=== PATIENT | female | born 1990 | race Caucasian/White ===

== ENCOUNTER 2020-02-18 13:09 | Emergency (ER) | payer MEDICARE, SELFPAY ==
[2020-02-18 13:17] VITALS: BP 116/77; BP 122/82; PULSE 88; RESP 17; TEMP 36.6; O2SAT 98; BMI 18.8
--- NOTE | 2020-02-18 15:37 | CT_ITS ---
EXAMINATION: CT ABDOMEN AND PELVIS WITH CONTRAST CLINICAL INFORMATION: Right-sided flank pain and right lower quadrant abdominal pain COMPARISON: Pelvic ultrasound 08/13/[address] abdomen pelvis 05/10/2019 TECHNIQUE: Multidetector volumetric images were obtained from the superior aspect of the liver through the pubic symphysis following administration 85 mL of Omnipaque 350 intravenous contrast. Sagittal and coronal reformatted images were obtained on the technologist's workstation. Oral contrast: No This CT examination was performed using dose optimization techniques as appropriate, variously including the following: *Automated exposure control *Adjustment of mA and/or kV according to patient size (this includes techniques or standardized protocols for targeted exams where dose is matched to indication/reason for exam; i.e. extremities or head) *Use of iterative reconstruction technique DLP: 251 mGy-cm FINDINGS: LUNG BASES: The visualized lung bases are unremarkable. LIVER, GALLBLADDER, AND BILIARY TREE: The liver is normal in size, shape, and attenuation. No focal hepatic lesion or biliary ductal dilatation is present. The gallbladder is contracted but otherwise unremarkable with no evidence of radiopaque gallstones, gallbladder wall thickening, or obvious pericholecystic inflammatory changes. PANCREAS: Unremarkable. SPLEEN: Unremarkable. ADRENAL GLANDS: Unremarkable. KIDNEYS AND URETERS: The kidneys are normal in size, shape, and attenuation. No hydronephrosis, hydroureter, or calculi seen. No perinephric stranding. BLADDER: Unremarkable. GASTROINTESTINAL TRACT: The small and large bowel are unremarkable. The appendix is is not seen but there is no evidence of appendicitis. ABDOMINAL WALL: No significant hernia is appreciated. LYMPH NODES: Normal. VASCULAR: There is a large refluxing left ovarian vein present with marked varices in the left hemipelvis and some smaller right-sided pelvic varices.. PELVIC VISCERA: An anteverted uterus is present. An abnormal adnexal mass is not seen. A tiny amount of fluid is present in the cul-de-sac OSSEOUS STRUCTURES: Unremarkable. CT/CT abdomen pelvis w con IMPRESSION: A cause for the right flank pain and right lower quadrant pain is not seen with certainty. Incidental note made of a large refluxing left ovarian vein with associated pelvic varices. This can be a cause of chronic pelvic pain especially if worsened with prolonged standing and relieved with the supine position. This is easily treatable by an interventional radiologist should the patient have this symptom complex.
[2020-02-18 15:57] VITALS: BP 107/62; PULSE 65; RESP 17; TEMP 37.1; O2SAT 99
[2020-02-18] MEDS: 0.9 % Sodium Chloride 1,000 ML 999 ML IV (16:12)
--- NOTE | 2020-02-18 16:14 | ED_ITS ---
HPI - Abdominal Pain General Chief Complaint: Abdominal Pain Stated Complaint: back pain Time Seen by Provider: 02/18/20 15:14 Source: patient Mode of arrival: ambulatory Limitations: no limitations History of Present Illness HPI narrative: 23-year-old female with past medical history that is significant for anxiety disorder, depression, according to her history of gallstones who presents today with complaint of right lower quadrant abdominal pain going on for the past several days now pain radiates to the right flank area and has been progressively getting worse with associated nausea and stabbing like pain. MD elicited complaint: abdominal pain Quality: stabbing Radiation: RLQ Exacerbating factors: nothing Related Data Previous Rx's Medication Instructions Recorded dicyclomine 20 mg PO BID #14 tab 02/18/20 ondansetron HCl [Zofran] 4 mg PO Q8H PRN #10 tab 02/18/20 Allergies Allergy/AdvReac Type Severity Reaction Status Date / Time ceftriaxone [CEFTRIAXONE] Allergy Intermediate HIVES Unverified 11/25/19 19:18 amoxicillin [AMOXICILLIN] Allergy Mild RASH Unverified 11/25/19 19:18 SEASONAL ALLERGIES Allergy Unknown UNKNOWN Uncoded 11/25/19 19:18 Review of Systems Review of Systems Constitutional: No Weight loss, No Fever, No Chills, No Night Sweats, No Fatigue, No Malaise ENT/Mouth: No Hearing loss, No Ear Pain, No Nasal Congestion, No Sinus Pain, No Hoarseness, No sore throat, No Rhinorrhea, No Swallowing Difficulty Eyes: No Eye Pain, No Swelling, No Redness, No Foreign Body, No Discharge, No Vision Changes Cardiovascular: No Chest Pain, No SOB, No Dyspnea on Exertion, No Orthopnea, No Edema, No Palpitations Respiratory: No Cough, No Sputum, No Wheezing, No Smoke Exposure, No Dyspnea Gastrointestinal: As noted in HPI, No Hematochezia, No Melena Genitourinary: no irregular bleeding, No Dysuria, No Urinary Frequency, No Hematuria, No Urinary Incontinence, No Urgency, No Flank Pain, No Urinary Flow Changes, No Hesitancy Musculoskeletal: No joint pain, No Myalgias, No Joint Swelling Skin: No Skin Lesions, No rash Neuro: No Weakness, No Numbness, No Paresthesias, No Loss of Consciousness, No Dizziness, No Headache Psych: No Anxiety/Panic, No Depression, No SI/HI/AH/VH, No Social Issues Heme/Lymph: No Bruising, No Bleeding,No Lymphadenopathy Endocrine: No Polyuria, No Polydipsia, No Temperature Intolerance Yes all other systems are reviewed and are negative Physical Exam Vital Signs: Vital Signs: Last Vital Signs Temp 97.8 F 02/18/20 19:28 Pulse 64 02/18/20 19:28 Resp 16 02/18/20 19:28 BP 106/64 02/18/20 19:28 Pulse Ox 95 02/18/20 19:28 Body Mass Index 18.8 Reviewed Const: General: cooperative and healthy appearing; No acute distress or intoxicated appearing Nutritional Appearance: average body habitus Orientation/consciousness: patient oriented x3 HENMT: Head: Yes normal to inspection Ears: hearing grossly normal bilaterally Eyes: General: appearance normal, both eyes and all related structures Visual Carrera: normal visual carrera by confrontation Neck: Neck: Yes normal visual inspection and No tender Thyroid: Thyroid normal Chest: Chest palpation & inspection: normal inspection of the chest Resp: Effort & Inspection: normal respiratory effort Auscultation: clear to auscultation bilaterally Cardio: Jugular venous distension: no JVD Rate: regular rate Heart sounds: S1 normal heart sound present and S2 normal heart sound present GI: Inspection: Yes normal to inspection Palpation (GI): Soft to palpation and Tenderness to palpation present (GI) in the RLQ Percussion: Yes normal to percussion Auscultation: normal bowel sounds : General: Yes no CVA tenderness Back/Spine/Pelvis: Back: no CVA tenderness Skin: General skin exam: no rashes or lesions noted Neuro: General: patient oriented x3 Extrem: General: Yes normal to inspection Course Course Course Narrative: Interview 21-year-old female with above history including history of gallstone otherwise denies any significant surgical history not currently taking medications states that she has had this right lower quadrant pain going on for 3 days upon further investigation she started to become more forthcoming states she is very upset and agitated that she has had this pain going on has been to multiple ERs including [facility] and [facility] where she was escorted out of the building because the wait times were long and testing revealed no specific diagnosis. During conversation seem to be very easily agitated by basic questioning. Abdominal exam is some vague right lower quadrant tenderness otherwise no suprapubic tenderness palpation. Will check labs including UA. Reevaluation(s) Reevaluation #1: Labs overall stable no leukocytosis renal function intact. No transaminitis. UA negative, negative. Urine tox positive for marijuana otherwise negative. She did have a COVID test 3 days ago which was negative she declined another [address] scan risk benefits of having radiation reviewed with her states she has been to 2 years and would like to CT get a CT scan to make sure there is nothing going on. Advised her that given the stable labs and examination suspicions are relatively low for appendix/obstructive pathology/infectious pathology. CT of the abdomen pelvis ordered with IV contrast. Reevaluation #2: Call from [facility] who states Dr. Walker re ad CT given technical issues having hard time transferring read over impression of the CT reads No acute abnormalities on the CT of the abdomen and pelvis. Read number a [id number] MDM - Abdominal Pain Differential Diagnosis Differential diagnosis: Likely abdominal pain, acute appendicitis, calculus of kidney, diverticulitis, gastritis and renal colic; Unlikely aortic dissection, bowel perforation, constipation, endometriosis, gastroenteritis, mesenteric ischemia, ovarian cyst, pancreatitis, peptic ulcer disease and small bowel obstruction Medical Records Attestation: I reviewed the patient's medical records. Medical records narrative: Records reviewed from [facility] Lab Data Attestation: I reviewed the patient's lab results. Result diagrams: 02/18/20 16:11 02/18/20 16:11 Labs: Lab Results 02/18/20 02/18/20 02/18/20 Range/Units 16:11 16:11 16:11 WBC 7.6 (4.8-10.8) X10*3/uL RBC 4.52 (4.20-5.50) X10*6/uL Hgb 13.0 (12.0-16.0) g/dl Hct 40.8 (37-47) % MCV 90.3 (80-98) fL MCH 28.8 (27.0-33.0) pg MCHC 31.9 (31.0-35.0) g/dl RDW 12.4 (11.0-16.0) % Plt Count 162 (160-400) X10*3/uL MPV 11.4 (9.4-12.3) fL Immature Gran % (Auto) 0.4 (0.0-0.4) % Neut % (Auto) 70.2 (45-73) % Lymph % (Auto) 20.6 (20-40) % [place] % (Auto) 5.2 (2-11) % Eos % (Auto) 3.3 (0-4) % Baso % (Auto) 0.3 (0-2) % Lymph # (Auto) 1.6 (1.2-4.9) X10*3/uL [place] # (Auto) 0.4 (0.1-1.2) X10*3/uL Eos # (Auto) 0.3 (0.0-0.4) X10*3/uL Baso # (Auto) 0.0 (0.0-0.2) X10*3/uL Abs Immat Gran (auto) 0.03 (0.00-0.03) X10*3/uL Absolute Neuts (auto) 5.4 (2.0-8.3) X10*3/uL Absolute Nucleated RBC 0.000 (0.0-0.012) X10*3/uL Nucleated RBC % (auto) 0.0 (0.0-0.2) /100WBC PT 12.8 (10.8-13.0) SEC INR 1.1 (0.9-1.1) APTT 29.6 (24.1-38.0) SEC Sodium 140 (135-145) mmol/L Potassium 4.5 (3.3-5.1) mmol/l Chloride 106 (96-108) mmol/L Carbon Dioxide 26 (22-29) mmol/L Anion Gap 13 (12-20) BUN 10 (9-16) mg/dL Creatinine 0.68 (0.5-1.4) mg/dL Estim Creat Clear Calc 87.4 Estimated GFR > 60 Random Glucose 75 (60-115) mg/dL Calcium 8.9 (8.4-10.2) mg/dL Total Bilirubin 1.6 H (0.0-1.0) mg/dL AST 17 (5-31) U/L ALT 13 (0-31) U/L Alkaline Phosphatase 59 (39-117) U/L Total Protein 6.7 (6.5-8.0) g/dL Albumin 4.4 (3.5-5.0) g/dL Urine Color Urine Appearance Urine pH (5.0-8.0) Ur Specific [place] (1.005-1.025) Urine Protein (NEG-TRACE) MG/DL Urine Glucose (UA) (NEG) MG/DL Urine Ketones (NEG) MG/DL Urine Blood (NEG) Urine Nitrite (NEG) Ur Leukocyte Esterase (NEG) Urine RBC (0) /HPF Urine WBC (0-4) /HPF Ur Squamous Epith Cells /LPF Amorphous Sediment /LPF Urine Bacteria /LPF Urine Test (NEGATIVE) Urine Opiates Screen (Not Detect) Ur Barbiturates Screen (Not Detect) Ur Phencyclidine Scrn (Not Detect) Ur Amphetamines Screen (Not Detect) U Benzodiazepines Scrn (Not Detect) Urine Cocaine Screen (Not Detect) U Marijuana (THC) Screen (Not Detect) 02/18/20 02/18/20 Range/Units 16:11 16:11 WBC (4.8-10.8) X10*3/uL RBC (4.20-5.50) X10*6/uL Hgb (12.0-16.0) g/dl Hct (37-47) % MCV (80-98) fL MCH (27.0-33.0) pg MCHC (31.0-35.0) g/dl RDW (11.0-16.0) % Plt Count (160-400) X10*3/uL MPV (9.4-12.3) fL Immature Gran % (Auto) (0.0-0.4) % Neut % (Auto) (45-73) % Lymph % (Auto) (20-40) % [place] % (Auto) (2-11) % Eos % (Auto) (0-4) % Baso % (Auto) (0-2) % Lymph # (Auto) (1.2-4.9) X10*3/uL [place] # (Auto) (0.1-1.2) X10*3/uL Eos # (Auto) (0.0-0.4) X10*3/uL Baso # (Auto) (0.0-0.2) X10*3/uL Abs Immat Gran (auto) (0.00-0.03) X10*3/uL Absolute Neuts (auto) (2.0-8.3) X10*3/uL Absolute Nucleated RBC (0.0-0.012) X10*3/uL Nucleated RBC % (auto) (0.0-0.2) /100WBC PT (10.8-13.0) SEC INR (0.9-1.1) APTT (24.1-38.0) SEC Sodium (135-145) mmol/L Potassium (3.3-5.1) mmol/l Chloride (96-108) mmol/L Carbon Dioxide (22-29) mmol/L Anion Gap (12-20) BUN (9-16) mg/dL Creatinine (0.5-1.4) mg/dL Estim Creat Clear Calc Estimated GFR Random Glucose (60-115) mg/dL Calcium (8.4-10.2) mg/dL Total Bilirubin (0.0-1.0) mg/dL AST (5-31) U/L ALT (0-31) U/L Alkaline Phosphatase (39-117) U/L Total Protein (6.5-8.0) g/dL Albumin (3.5-5.0) g/dL Urine Color YELLOW Urine Appearance HAZY Urine pH 7.0 (5.0-8.0) Ur Specific [place] 1.025 (1.005-1.025) Urine Protein NEG (NEG-TRACE) MG/DL Urine Glucose (UA) NEG (NEG) MG/DL Urine Ketones 15 (NEG) MG/DL Urine Blood NEG (NEG) Urine Nitrite NEG (NEG) Ur Leukocyte Esterase NEG (NEG) Urine RBC 0 (0) /HPF Urine WBC 0 (0-4) /HPF Ur Squamous Epith Cells 1+ /LPF Amorphous Sediment 1+ /LPF Urine Bacteria NONE /LPF Urine Test NEGATIVE (NEGATIVE) Urine Opiates Screen Not Detected (Not Detect) Ur Barbiturates Screen Not Detected (Not Detect) Ur Phencyclidine Scrn Not Detected (Not Detect) Ur Amphetamines Screen Not Detected (Not Detect) U Benzodiazepines Scrn Not Detected (Not Detect) Urine Cocaine Screen Not Detected (Not Detect) U Marijuana (THC) Screen POSITIVE H (Not Detect) Discharge Plan Discharge Clinical Impression: Abdominal pain Patient Disposition: Home, Self-Care Instructions: Abdominal Pain (ED) Additional Instructions: Blood work was all within normal limits The CT scan of the abdomen pelvis with IV contrast does not show any acute abnormality At this point yet been evaluated in multiple ERs with multiple diagnostic testing that have been overall stable I would like for you to follow-up with her primary care doctor next 1 week and 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 Return if any concerns or worsening symptoms Thank you Prescriptions: New ondansetron HCl [Zofran] 4 mg tablet 4 mg PO Q8H PRN (Reason: nausea and vomiting) Qty: 10 RF: 0 dicyclomine 20 mg tablet 20 mg PO BID Qty: 14 RF: 0 Referrals: Marisela Lopez MD [Physician] - 1 week Physician,Unknown [Primary Care Provider] - 1 week (Primary care doctor) [facility] Past Medical History Medical History (Updated 02/18/20 @ 20:17 by Moshe Jung NP) Anxiety Depression PTSD (post-traumatic stress disorder) Social History Social History Alcohol intake: never Smoked in Last 30 Days: No Use of substances other than those prescribed or required for medical reasons: No Advance Directives: No Advance Directives Information Provided: Yes
[2020-02-18 16:24] LABS: Basophils Percent Auto 0.3 % (0-2); Eosinophils Absolute Auto 0.3 X10*3/uL (0.0-0.4); Eosinophils Percent Auto 3.3 % (0-4); Hematocrit 40.8 % (37-47); Imm Gran Abs Auto 0.03 X10*3/uL (0.00-0.03); Imm Gran Pct Auto 0.4 % (0.0-0.4); Lymphocytes Absolute Auto 1.6 X10*3/uL (1.2-4.9); Lymphocytes Percent Auto 20.6 % (20-40); MANUAL DIFF FLAG NO; Mean Corpuscular HGB Conc 31.9 g/dl (31.0-35.0); Mean Corpuscular Hemoglobin 28.8 pg (27.0-33.0); Mean Corpuscular Volume 90.3 fL (80-98); Mean Platelet Volume 11.4 fL (9.4-12.3); Monocytes Absolute Auto 0.4 X10*3/uL (0.1-1.2); Monocytes Percent Auto 5.2 % (2-11); Neutrophils Absolute Auto 5.4 X10*3/uL (2.0-8.3); Neutrophils Percent Auto 70.2 % (45-73); Platelet Count 162 X10*3/uL (160-400); Red Blood Count 4.52 X10*6/uL (4.20-5.50); Red Cell Distribution Width 12.4 % (11.0-16.0); White Blood Count 7.6 X10*3/uL (4.8-10.8)
[2020-02-18 16:27] LABS: Glucose Urine UA NEG (NEG); Leukocyte Esterase Urine NEG (NEG); Nitrite Urine NEG (NEG); Specific Gravity - Urine 1.025 (1.005-1.025); Urine Blood NEG (NEG); Urine Ketones 15 MG/DL (NEG); Urine Protein NEG (NEG-TRACE)
[2020-02-18 16:28] LABS: Appearance Urine HAZY; Color Urine YELLOW; INTERNATIONAL NORM RATIO 1.1 (0.9-1.1); Prothrombin Time 12.8 SEC (10.8-13.0)
[2020-02-18 16:29] LABS: UPreg QC Valid YES
[2020-02-18 16:30] LABS: Urine Pregnancy NEGATIVE (NEGATIVE)
[2020-02-18 16:31] LABS: Partial Thromboplastin Time 29.6 SEC (24.1-38.0)
[2020-02-18 16:35] LABS: Amorphous Sediment Urine 1+ /LPF; RBC Urine 0 /HPF (0); Squamous Epithelial Cell Urine 1+ /LPF; WBC Urine 0 /HPF (0-4)
[2020-02-18 17:01] LABS: Alanine Aminotransferase 13 U/L (0-31); Albumin Level 4.4 g/dL (3.5-5.0); Alkaline Phosphatase 59 U/L (39-117); Anion Gap 13 (12-20); Aspartate Amino Transferase 17 U/L (5-31); Bilirubin Total 1.6 mg/dL (0.0-1.0); Blood Urea Nitrogen 10 mg/dL (9-16); Calcium 8.9 mg/dL (8.4-10.2); Carbon Dioxide 26 mmol/L (22-29); Chloride 106 mmol/L (96-108); Creatinine Clr Calc Pharmacy 87.4; Estimated Glomerular Filt Rate > 60; Glucose Random 75 mg/dL (60-115); Potassium 4.5 mmol/l (3.3-5.1); Sodium 140 mmol/L (135-145); Total Protein 6.7 g/dL (6.5-8.0)
[2020-02-18 17:02] LABS: Amphetamine Screen Urine Not Detected (Not Detect); Barbiturates, Urine Not Detected (Not Detect); Benzodiazepines Screen Urine Not Detected (Not Detect); Cannabinoid Screen Urine POSITIVE (Not Detect); Cocaine Screen Urine Not Detected (Not Detect); Opiate Screen Urine Not Detected (Not Detect); Phencyclidine Screen Urine Not Detected (Not Detect)
[2020-02-18 17:33] VITALS: BP 108/65; PULSE 81; RESP 16; TEMP 37.1; O2SAT 99
[2020-02-18] MEDS: iohexoL 350 MG/ML 100 ML INFUS..BTL IV (17:53)
[2020-02-18] MEDS: ondansetron HCL 4 MG/2 ML VIAL IVPUSH (18:14)
[2020-02-18 19:28] VITALS: BP 106/64; PULSE 64; RESP 16; TEMP 36.6; O2SAT 95
== END 2020-02-18 20:38 | disposition home or self-care (01) ==
PROVIDERS: Nurse Practitioner Primary Care; Emergency Provider Emergency Medicine
DX: R10.31 Right lower quadrant pain (principal); F33.1 Major depressive disorder, recurrent, moderate; Z79.899 Other long term (current) drug therapy
CPT/HCPCS: 36415; 74177; 80053; 80307; 81001; 81025; 85025; 85610; 85730; 96361; 96374; 99284; J2405; Q9967

== ENCOUNTER 2020-08-09 14:51 | Emergency (ER) | payer OTHER, MEDICARE, SELFPAY ==
[2020-08-09 15:34] VITALS: BP 89/57; PULSE 76; RESP 16; TEMP 36.8; O2SAT 97; BMI 18.1
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
[2020-08-09 18:31] VITALS: BP 99/59; PULSE 72; RESP 16; O2SAT 100
--- NOTE | 2020-08-09 18:34 | PC.NURSE ---
PT HAS CRONIC LOW BP PA AMBROCIO AWARE PT IS GOOD TO GO HOME.
== END 2020-08-09 18:39 | disposition home or self-care (01) ==
PROVIDERS: Emergency Provider Internal Medicine
DX: S13.9XXA Sprain of joints and ligaments of unspecified parts of neck, initial encounter (principal); V43.52XA Car driver injured in collision with other type car in traffic accident, initial encounter; R51.9 Headache, unspecified; F41.9 Anxiety disorder, unspecified; Y93.89 Activity, other specified; Y92.414 Local residential or business street as the place of occurrence of the external cause; Y99.8 Other external cause status
CPT/HCPCS: 99284

== ENCOUNTER 2024-03-22 01:06 | Emergency (ER) | payer OTHER, SELFPAY ==
--- NOTE | ~2024-03-22 | CT_ITS ---
CLINICAL HISTORY: diffuse chronic abdominal pain CT abdomen and pelvis without contrast Comparison: CT/REG/PA - CT ABDOMEN PELVIS W CON - 02/18/20 17:13 EST Findings: No consolidation or effusion. Small nonobstructing left renal calculus is present. Gallbladder, liver, pancreas, spleen and adrenal glands are within normal limits. Mild mesenteric fat stranding surrounds slightly thick-walled loops of small bowel in the left abdomen. Colonic diverticulosis is present without CT evidence of diverticulitis. Visualized portions of the appendix are within normal limits. No acute fracture. IMPRESSION: Mild fat stranding surrounding slightly thick-walled loops of small bowel in the left abdomen, possible enteritis. Please correlate clinically. This document has been electronically signed by: Noam Shultz MD, PHD on 03/22/2024 03:38:20
[2024-03-22 01:14] VITALS: BP 113/78; BP 118/72; BP 124/78; PULSE 71; PULSE 79; PULSE 80; RESP 16; RESP 17; TEMP 36.9; TEMP 37.1; O2SAT 97; O2SAT 98; BMI 24.6
--- NOTE | 2024-03-22 01:30 | ECG_ITS ---
Test Reason : ABDE PAIN Blood Pressure : */* mmHG Vent. Rate : 61 BPM Atrial Rate : 61 BPM P-R Int : 102 ms QRS Dur : 80 ms QT Int : 388 ms P-R-T Axes : -17 63 61 degrees QTcB Int : 390 ms Sinus rhythm with short TX with Premature atrial complexes Otherwise normal ECG When compared with ECG of 13-Aug-2019 13:46, Premature atrial complexes are now Present Referred By: Angélica Gallagher Electronically Signed By: Carlos Mathur
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
[2024-03-22 01:40] VITALS: BP 105/73; PULSE 66
[2024-03-22 01:41] VITALS: BP 107/78; PULSE 80
[2024-03-22 01:45] VITALS: BP 117/75; PULSE 98
[2024-03-22 02:24] LABS: MANUAL DIFF FLAG NO
[2024-03-22 02:26] LABS: Basophils Percent Auto 0.4 % (0-2); Eosinophils Absolute Auto 0.1 X10*3/uL (0.0-0.4); Eosinophils Percent Auto 1.2 % (0-4); Hemoglobin 12.4 g/dl (12.0-16.0); Imm Gran Abs Auto 0.04 X10*3/uL (0.00-0.03); Imm Gran Pct Auto 0.4 % (0.0-0.4); Lymphocytes Absolute Auto 1.6 X10*3/uL (1.2-4.9); Lymphocytes Percent Auto 16.5 % (20-40); Mean Corpuscular HGB Conc 32.6 g/dl (31.0-35.0); Mean Corpuscular Hemoglobin 27.4 pg (27.0-33.0); Mean Corpuscular Volume 83.9 fL (80.0-98.0); Mean Platelet Volume 10.8 fL (9.4-12.3); Monocytes Absolute Auto 0.5 X10*3/uL (0.1-1.2); Monocytes Percent Auto 5.1 % (2-11); Neutrophils Absolute Auto 7.5 x10*3/uL (2.0-8.3); Neutrophils Percent Auto 76.4 % (45-73); Platelet Count 186 X10*3/uL (160-400); Red Blood Count 4.53 X10*6/uL (4.20-5.50); White Blood Count 9.8 X10*3/uL (4.8-10.8)
[2024-03-22 02:27] LABS: Appearance Urine Clear; Color Urine Yellow; Glucose Urine UA Negative (Negative); Leukocyte Esterase Urine Negative (Negative); Nitrite Urine Negative (Negative); PH 5.5 (5.0-9.0); Urine Blood Negative (Negative); Urine Ketones 40 mg/dL (Negative); Urine Protein Negative (Neg-Trace)
[2024-03-22 02:39] LABS: Amphetamine Screen Urine Not Detected (Not Detect); Barbiturates, Urine Not Detected (Not Detect); Benzodiazepines Screen Urine Not Detected (Not Detect); Buprenorphine Scr Not Detected (Not Detect); Cannabinoid Screen Urine POSITIVE (Not Detect); Cocaine Screen Urine Not Detected (Not Detect); Fentanyl, urine Not Detected (Not Detect); Methadone Screen, Urine Not Detected (Not Detect); Opiate Screen Urine Not Detected (Not Detect); Oxycodone Screen Urine Not Detected (Not Detect); Phencyclidine Screen Urine Not Detected (Not Detect); UPreg QC Valid YES; Urine Pregnancy NEGATIVE (NEGATIVE)
[2024-03-22 02:45] LABS: Alanine Aminotransferase 8 U/L (0-31); Anion Gap 13 (12-20); Aspartate Amino Transferase 19 U/L (5-31); Bilirubin Direct 0.3 mg/dL (0.0-0.5); Bilirubin Total 1.3 mg/dL (0.0-1.0); Blood Urea Nitrogen 8 mg/dL (9-16); Calcium 9.2 mg/dL (8.4-10.2); Carbon Dioxide 21 mmol/L (22-29); Chloride 112 mmol/L (96-108); Creatinine Clr Calc Pharmacy 94.3; Estimated Glomerular Filt Rate > 60; Ethanol < 10 mg/dL; Glucose Random 95 mg/dL (60-115); Magnesium 2.1 mg/dL (1.6-2.6); Sodium 142 mmol/L (135-145); Total Protein 6.9 g/dL (6.5-8.0)
[2024-03-22 02:54] LABS: Troponin-I High Sensitivity < 2.7 ng/L (<3.5-17.0)
[2024-03-22 03:46] LABS: Alkaline Phosphatase 72 U/L (39-117)
[2024-03-22 03:55] LABS: CT PCR NOT DETECTED (Not Detect.); NG PCR NOT DETECTED (Not Detect.)
[2024-03-22 04:07] VITALS: BP 117/66; PULSE 91; RESP 16; TEMP 36.9; O2SAT 98
[2024-03-22 13:09] LABS: Bacterial Vaginosis PCR NEGATIVE (Negative); Candida Group PCR NOT DETECTED (Not Detect); Candida glab krusei PCR NOT DETECTED (Not Detect); Trichomonas vaginalis PCR NOT DETECTED (Not Detect)
[2024-03-23 21:58] LABS: Lyme Abs Screen <0.90 index
[2024-03-24 00:44] LABS: A. Phagocytphilium DNA,RT-PCR NOT DETECTED (NOT DETECTED); Babesia Microti DNA, RT-PCR NOT DETECTED (NOT DETECTED); Borrelia Miyamotoi,DNA RT-PCR NOT DETECTED (NOT DETECTED); E.Chaffeensis DNA RT-PCR NOT DETECTED (NOT DETECTED); Lyme(Borrelia ssp)DNA RT-PCR NOT DETECTED (NOT DETECTED)
== END 2024-03-22 04:10 | disposition home or self-care (01) ==
PROVIDERS: Emergency Provider Emergency Medicine; PCP Internal Medicine
DX: R10.13 Epigastric pain (principal); R42 Dizziness and giddiness; Z20.2 Contact with and (suspected) exposure to infections with a predominantly sexual mode of transmission; F41.9 Anxiety disorder, unspecified; F32.A Depression, unspecified; F43.10 Post-traumatic stress disorder, unspecified; F12.90 Cannabis use, unspecified, uncomplicated; Z79.899 Other long term (current) drug therapy
CPT/HCPCS: 36415; 74176; 80048; 80076; 80307; 81003; 81025; 81515; 83735; 84484; 85025; 86617; 86618; 87468; 87469; 87478; 87484; 87491; 87591; 87798; 93005; 99284; 99285

== ENCOUNTER → 2024-03-22 01:30 | Outpatient (BNV) | payer OTHER, SELFPAY | PROVIDERS: Emergency Provider Emergency Medicine; PCP Internal Medicine; Visit Provider Internal Medicine Cardiovascular Disease | DX: R10.9 Unspecified abdominal pain (principal) | CPT/HCPCS: 93010 ==

== ENCOUNTER → 2024-03-22 02:04 | Outpatient (BNV) | payer OTHER, SELFPAY | PROVIDERS: Emergency Provider Emergency Medicine; PCP Internal Medicine; Visit Provider General Practice | DX: R42 Dizziness and giddiness (principal) | CPT/HCPCS: 74176 ==

== ENCOUNTER 2024-04-23 12:49 | Outpatient (AMB) | payer OTHER, SELFPAY ==
--- NOTE | 2024-04-23 12:56 | MHC.OFFWIV ---
Intake Vital Signs 04/23/24 12:59 BP 108/60 Blood Pressure Location Rt brachial Position Sitting Pulse 103 H Pulse Source Pulse Oximeter Pulse Oximetry (%) 97 Oxygen Delivery Method Room Air Intake Visit Reasons: EP numb mouth/throat pain from sesame bagel Intake Note: Patient here for tongue tingling/burning, throat feels like its closing/difficulty breathing that started this morning. Patient Tobacco Use Status: Never used Tobacco Allergies ceftriaxone [CEFTRIAXONE] Allergy (Intermediate, Verified 04/23/24 12:58) HIVES amoxicillin [AMOXICILLIN] Allergy (Mild, Verified 04/23/24 12:58) RASH SEASONAL ALLERGIES Allergy (Unknown, Uncoded 04/23/24 12:58) UNKNOWN Do you need a note to return to daycare/school/sports/work: No HPI EP numb mouth/throat pain from sesame bagel HPI Details This is a 33-year-old female patient who presents to the walk-in clinic today with report of allergic symptoms. States she ate food with seasoning that contained sesame seeds last night, and also had a sesame seed bagel this morning. She developed itching of skin, throat, and tongue - had mild symptoms last night and symptoms worsened this morning. She denies any rash. She denies any shortness of breath. She states that her throat feels slightly swollen. She took Claritin at home without relief. She does not have a known history to sesame seeds, however reports multiple seasonal and food allergies. Has never been to allergy/immunology for workup. Has mild GI upset, however denies any abdominal pain or vomiting/diarrhea. [facility] Medical History Depression Anxiety PTSD (post-traumatic stress disorder) Social History Alcohol intake: never Patient Tobacco Use Status: Never used Tobacco Substance Use Type: Marijuana Review of Systems Const All systems reviewed & are unremarkable except as noted in HPI and below Physical Exam Vital Signs: Last Vital Signs Pulse 103 H 04/23/24 12:59 BP 108/60 04/23/24 12:59 Pulse Ox 97 04/23/24 12:59 Oxygen Delivery Method Room Air 04/23/24 12:59 Const General: cooperative, healthy appearing, comfortable and no acute distress Nutritional Appearance: average body habitus Limitations: no limitations HEENT Head: Yes normal to inspection Ears: hearing grossly normal bilaterally General nose exam: Normal external nose present Face and sinus: Yes normal facial exam Mouth: Normal oral and palatal mucosa present and tongue normal Throat: Yes posterior oropharynx normal Neck Neck: Yes no lymphadenopathy Resp Effort & Inspection: normal respiratory effort and able to speak in complete sentences Auscultation: clear to auscultation bilaterally Cardio Rate: regular rate Rhythm: regular rhythm Skin General skin exam: no rashes or lesions noted Extrem General: Yes capillary refill normal and Yes no clubbing, cyanosis or edema Psych Appearance: grossly normal Mental Status: mental status grossly normal Speech and movement: Normal speech and movement present Assessment & Plan Assessment & Plan (1) Allergic reaction to food: Code(s): T78.1XXA - Other adverse food reactions, not elsewhere classified, initial encounter Qualifiers: Encounter type: initial encounter Qualified Code(s): T78.1XXA - Other adverse food reactions, not elsewhere classified, initial encounter Plan: Presentation consistent with allergic reaction. Will start on Prednisone. We have reviewed indications, use, possible s/e of medication. Will also prescribe epi-pen for any worsening symptoms or new reactions in the future. We reviewed use of this. She can also use OTC Benadryl for symptom management. She should f/u with her PCP as she may benefit from an allergy/immunology referral. If symptoms worsen or she develops any shortness of breath she should use epi-pen and go to ED. She agrees with plan. Medications: New prednisone Take one tablet twice a day for 5 days. 20 mg PO BID 5 days 10 tabs 0RF T78.1XXA - Other adverse food reactions, not elsewhere classified, initial encounter epinephrine (EpiPen 2-Zachary) Use auto-injector epi-pen for anaphylactic reaction. Use second epi-pen 10-15 minutes later if symptoms persist. 0.3 mg (0.3 mL) IM Q10M PRN 2 ea 1RF anaphylaxis T78.40XA - Allergy, unspecified, initial encounter Discontinued cyclobenzaprine Discontinued Reason: Patient Completed Course 5 mg PO TID PRN 14 tabs 0RF muscle spasm Coding Level of Care Code Est Pt Level 4 (37887) Diagnoses Allergic reaction to food, initial encounter T78.1XXA Encounter type: initial encounter
[2024-04-23 12:59] VITALS: BP 108/60; PULSE 103; O2SAT 97
--- OUTSIDE RECORDS SUMMARY | 2024-04-23 13:12 | XMS_ITS ---
Author Organization [facility] Address [address] [place] [address] Phone Care Team Providers Care Car Seat Coverer Name Role Phone Hailee Velazquez MD Primary Care Provider [phone] [facility] - Education Status:Ongoing (Active) Start date:04/19/2024 Enrollment date:04/19/2024 Enrollment reason:Walk-in Related program episode:Community Health Worker Program (Active) Overview CHW Service Episode - Education supplied by a CHW. Case Team Name Relationship Phone Stefan Dalal Community Health Worker(Respons ible Staff) Continued Care and Services Coordination
--- OUTSIDE RECORDS SUMMARY | 2024-04-23 13:12 | XMS_ITS ---
Author Organization [facility] Address [address] [place] [address] Phone Care Team Providers Care Classroom Technology Technician Name Role Phone Hailee Velazquez MD Primary Care Provider [phone] [facility] - Food Insecurity Status:Ongoing (Active) Start date:04/19/2024 Enrollment date:04/19/2024 Enrollment reason:Walk-in Related social drivers of health:Food Risk Related program episode:Community Health Worker Program (Active) Overview Community Health Worker Program - Food Insecurity Service Episode Case Team Name Relationship Phone Stefan Dalal Community Health Worker(Respons ible Staff) Continued Care and Services Coordination
--- OUTSIDE RECORDS SUMMARY | 2024-04-23 13:12 | XMS_ITS | Clinical Summary ---
Author Organization [facility] Address [address] [place] [address] Phone Care Team Providers Care Supervisor Paper Products Name Role Phone Hailee Velazquez MD Primary Care Provider [phone]- [phone] Allergies No known active allergies Medications ketorolac (TORADOL) 10 mg tablet Take 1 tablet (10 mg total) by mouth every 6 (six) hours if needed for moderate pain for up to 5 days. 20 tablet 5 025 Active torsemide (DEMADEX) 10 mg tablet Take 1 tablet (10 mg total) by mouth every 12 (twelve) hours if needed (pain). 30 each 5 025 Discontinued Encounters Date Type Department Care Team Description 04/19/2024 6:35 AM EST - 04/19/2024 12:02 PM EST Emergency [facility] Emergency [address] [place] [address] Kimani Vera MD Chest pain, unspecified type (Primary Dx); Palpitation Discharge Disposition: Home or Self Care 04/19/2024 Community Care Management [facility] [address] [place] [address] Stefan Dalal from Last 3 Months Social History Tobacco Use Types Packs/Day Years Used Date Smoking Tobacco: Never Assessed Housing Instability Answer Date Recorde d Are you worried that in the next 2 months you may not have stable housing? No 04/19/2024 Food Access & Nutrition Answer Date Rec orded Do you have access to a vari ety of food including fruits and vegetables? Yes 04/19/2024 Access to Healthcare Answer Date Record ed Within the last 3 months, ho w many times did you visit the emergency department for your medical care? 10 04/19/2024 Health Literacy Answer Date Recorded How often do you need to hav e someone help you when you read instructions, pamphlets, or other written material from your doctor or pharmacy? Sometimes 04/19/2024 Caregiver: How often do you need to have someone help you when you read instructions, pamphlets, or other written material from your doctor or pharmacy? Not on file 04/19/2024 Financial Risk Answer Date Recorded How hard is it for you to pa y for the very basics like food, housing, medical care, and air conditioning / heating? Somewhat hard 04/19/2024 Transportation Answer Date Recorded Has the lack of transportati on kept you from meetings, work, or from getting things needed for daily living? Yes Has the lack of transportati on kept you from medical appointments or from getting medications? Yes 04/19/2024 Social Isolation Answer Date Recorded How often do you feel lonely or isolated from th ose around you? Often 04/19/2024 Food Risk Answer Date Recorded Within the past 12 months we worried whether our food would run out before we got money to buy more. Sometimes true 025 Within the past 12 months th e food we bought just didn't last and we didn't have money to get more. Sometimes true 04/19/2024 Dependent Care Answer Date Recorded Do you need help finding or paying for care for your loved ones. For example, child life therapist or elderly care for an older adult? Yes 04/19/2024 Education Answer Date Recorded Do you think completing more education or training, like finishing a GED, going to college, or learning a trade, would be helpful for you? Yes 04/19/2024 Employment and Income Answer Date Recor ded During the last four weeks, have you been actively looking for work? No 04/19/2024 Living Situation Answer Date Recorded What is your living situation? 0 04/19/2024 Comments Unknown Sex and Gender Information Value Date Recorded Sex Assigned at Female 04/19/2024 8:11 AM EST Legal Sex Female 5:08 PM EST Gender Identity Female 04/19/2024 8:11 AM EST Sexual Orientation Not on file Last Filed Vital Signs Vital Sign Reading Time Taken Comments Blood Pressure 90/49 04/19/2024 9:38 AM EST Pulse 84 04/19/2024 9:38 AM EST Temperature 37.1 ??C (98.8 ??F) 04/19/2024 9:38 AM ES T Respiratory Rate 20 04/19/2024 9:38 AM EST Oxygen Saturation 95% 04/19/2024 9:38 AM EST Inhaled Oxygen Concentration - - Weight 52.2 kg (115 lb) 04/19/2024 7:15 AM EST Height 155.4 cm (5' 1.2 ) 04/19/2024 7:15 AM EST Body Mass Index 21.59 04/19/2024 7:15 AM EST Plan of Treatment Health Maintenance Due Date Last Done Comments Cervical Cancer Screening: P ap Smear 07/02/2011 HPV Vaccines (2 - 3-dose series) 10/16/2015 09/18/2015 Depression Screening 04/08/2023 HIV Screening 04/08/2023 Hepatitis C Screening 04/08/2023 Medicare Annual Wellness Visit 04/08/2023 COVID-19 Vaccine (3 - 2023-2 5 season) 2023 01/14/2021, 12/23/2020 Influenza Vaccine (#1) 2023 , 03/19/2021, 12/13/2016 Social Influencers of Health Screening 04/19/2025 04/19/2024 DTaP,Tdap,and Td Vaccines (4 - Td or Tdap) 05/05/2033 05/05/2023, 05/08/2021, 01/01/2012 MMR Vaccines Completed 09/18/2015, 07/02/1991 Hepatitis B Vaccines Completed 12/04/2016, 09/18/2015, 1990 HIB Vaccines Aged Out No longer eligi ble based on patient's age to complete this topic Hepatitis A Vaccines Aged Out No long er eligible based on patient's age to complete this topic IPV Vaccines Aged Out No longer eligi ble based on patient's age to complete this topic Meningococcal ACWY Vaccine Aged Out N o longer eligible based on patient's age to complete this topic Meningococcal B Vacine Aged Out No lo nger eligible based on patient's age to complete this topic Pneumococcal Vaccine: Pediatrics (0 to 5 Years) and At-Risk Patients (6 to 64 Years) Aged Out No longer eligible b ased on patient's age to complete this topic RSV Immunization Patients Under 20 months Aged Out No longer eligible b ased on patient's age to complete this topic Varicella Vaccines Aged Out No longer eligible based on patient's age to complete this topic Procedures Procedure Name Priority Date/Time Associated Diagnosis Comments ECG ANNOTATED 04/20/2024 ECG ANNOTATED 04/20/2024 D-DIMER STAT 04/19/2024 8:44 AM EST TROPONIN I HIGH SENSITIVITY STAT 04/19/2024 8:44 AM EST ECG 12-LEAD STAT 04/19/2024 8:38 AM EST XR CHEST 2 VIEWS STAT 04/19/2024 7:37 AM EST CBC WITH AUTO DIFFERENTIAL STAT 04/19/2024 7:18 AM EST B-TYPE NATRIURETIC PEPTIDE STAT 04/19/2024 7:18 AM EST MAGNESIUM STAT 04/19/2024 7:18 AM EST LIPASE STAT 04/19/2024 7:18 AM EST COMPREHENSIVE METABOLIC PANEL STAT 04/19/2024 7:18 AM EST CBC AND DIFFERENTIAL STAT 04/19/2024 7:18 AM EST TROPONIN I HIGH SENSITIVITY STAT 04/19/2024 7:18 AM EST ECG 12-LEAD STAT 04/19/2024 6:46 AM EST from Last 3 Months Results * ECG-Annotated (04/20/2024) Only the most recent of2 resultswithin the time period is included. Provider Onbase MD ECG ORDERABLES Final Result * Troponin I high sensitivity (04/19/2024 8:44 AM EST) Only the most recent of2 resultswithin the time period is included. [facility] High Sensitivity Troponin I 4 <=54 ng/L LAB CHEMISTRY METHOD 04/19/2024 9:20 AM EST [facility] Blood Venous blood specimen / Unknown Venipuncture / Unknown 04/19/2024 8:44 AM EST 04/19/2024 8:52 AM EST [facility] - 04/19/2024 9:20 AM EST High levels of biotin in samples may falsely decrease hsTroponin values. ??Use caution when interpreting hsTroponin results in patients taking biotin who exhibit renal impairment (eGFR <60) or in patients taking more than 20 mg/day of biotin. Prabhu SELLERS LAB BLOOD ORDERABLES Final Resul t [facility] [address] [place] [address], * D-dimer, quantitative (04/19/2024 8:44 AM EST) [facility] D-Dimer, Quant (D-DU) <150 <=230 ng/mL DDU LAB COAGULATION METHOD 04/19/2024 9:09 AM EST [facility] Blood Venous blood specimen / Unknown Venipuncture / Unknown 04/19/2024 8:44 AM EST 04/19/2024 8:52 AM EST [facility] - 04/19/2024 9:09 AM EST D-Dimer <230 ng/mL (D-Dimer units) is the threshold for exclusion of DVT/PE. D-Dimer may be elevated in: Critically ill, severely infected, trauma patients, DIC, acute CVA, acute OH, unstable angina, AF, old age, , and smoking. D-Dimer may be decreased with: Initiation of heparin therapy and oral anticoagulants. Kimani Vera MD LAB BLOOD ORDERABLES Final Result Performing Organization Address City/[facility]/ZIP Co de Phone Number [facility] [place] [facility] [address] [place] [address], [place] [phone] * ECG 12 lead (04/19/2024 8:38 AM EST) Only the most recent of2 resultswithin the time period is included. Ventricular Rate ECG 75 BPM GEM[facility] Atrial Rate 75 BPM GEM[facility] P-R Interval 134 ms GEMUSE QRS Duration 82 ms GEMUSE Q-T Interval 388 ms GEMUSE QTc 433 ms GEMUSE P Wave [place] 40 degrees GEMUSE R [place] 64 degrees GEMUSE T [place] 59 degrees GEMUSE ECG Interpretation Normal sinus rhythm Normal ECG When compared with ECG of 19-APR-2024 06:46, (unconfirmed) No significant change was found Confirmed by Vanessa PARISH JAMES ([id number]) on 04/19/2024 6:31:57 PM GEMUSE 04/19/2024 8:38 AM EST 04/19/2024 6:31 PM EST Prabhu SELLERS ECG ORDERABLES Final Result Performing Organization Address [facility] Co de Phone Number GEMUSE * XR Chest 2 Views (04/19/2024 7:37 AM EST) Anatomical Region Laterality Modality Body Radiographic Annabelle ging 04/19/2024 7:45 AM EST Impressions 04/19/2024 7:47 AM EST No acute chest disease -------- FINAL REPORT -------- Dictated By: Waylon Zhang Dictated Date: 04/19/2024 07:45 ET Assigned Physician: Waylon Zhang Reviewed and Electronically Signed By: Waylon Zhang Signed Date: 04/19/2024 07:47 ET Workstation ID: [id number] Transcribed By: Self Edit Transcribed Date: 04/19/2024 07:45 ET Narrative 04/19/2024 7:47 AM EST EXAMINATION: CHEST CLINICAL INFORMATION: Anxiety COMPARISON: Frontal view 03/12/2018 TECHNIQUE: 2 views of the chest FINDINGS: The cardiac size is within normal limits. The mediastinum, flor, vasculature, and lungs are within normal limits. Mild apical pleural thickening without underlying bone destruction. This likely postinflammatory and appears unchanged. What I suspect represents the patient's hair causes some artifact in the apex. Procedure Note Waylon Zhang MD - 04/19/2024 EXAMINATION: CHEST CLINICAL INFORMATION: Anxiety COMPARISON: Frontal view 03/12/2018 TECHNIQUE: 2 views of the chest FINDINGS: The cardiac size is within normal limits. The mediastinum, flor,vasculature, and lungs are within normal limits. Mild apical pleuralthickening without underlying bone destruction. This likelypostinflammatory and appears unchanged. What I suspect represents thepatient's hair causes some artifact in the apex. IMPRESSION: No acute chest disease -------- FINAL REPORT -------- Dictated By: Waylon Zhang Dictated Date: 04/19/2024 07:45 ET Assigned Physician: Waylon Zhang Reviewed and Electronically Signed By: Waylon Zhang Signed Date: 04/19/2024 07:47 ET Workstation ID: [id number] Transcribed By: Self Edit Transcribed Date: 04/19/2024 07:45 ET Prabhu SELLERS IMG XR PROCEDURES Final Result * (ABNORMAL) CBC auto differential (04/19/2024 7:18 AM EST) WBC 6.5 4.8 - 10.8 K/mcL LAB HEMETOLOGY METHOD 04/19/2024 8:12 AM [facility] RBC 4.60 3.80 - 4.80 M/mcL LAB HEMETOLOGY METHOD 04/19/2024 8:12 AM [facility] Hemoglobin 12.4 11.5 - 16.0 g/dL LAB HEMETOLOGY METHOD 04/19/2024 8:12 AM [facility] Hematocrit 39.9 35.0 - 47.0 % LAB HEMETOLOGY METHOD 04/19/2024 8:12 AM [facility] MCV 87.3 79.0 - 98.0 FL LAB HEMETOLOGY METHOD 04/19/2024 8:12 AM [facility] MCH 27.1 27.0 - 32.0 pcg LAB HEMETOLOGY METHOD 04/19/2024 8:12 AM [facility] MCHC 31.1(L) 32.0 - 37.0 g/dL LAB HEMETOLOGY METHOD 04/19/2024 8:12 AM [facility] RDW 12.9 11.0 - 15.0 % LAB HEMETOLOGY METHOD 04/19/2024 8:12 AM [facility] Platelets 186 130 - 400 K/mcL LAB HEMETOLOGY METHOD 04/19/2024 8:12 AM [facility] MPV 11.8(H) 7.0 - 11.0 FL LAB HEMETOLOGY METHOD 04/19/2024 8:12 AM [facility] NRBC 0.0 <1.0 % LAB HEMETOLOGY METHOD 04/19/2024 8:12 AM [facility] NRBC Absolute 0.00 <0.10 K/mcL LAB HEMETOLOGY METHOD 04/19/2024 8:12 AM [facility] Neutrophils Relative 62.2 % LAB HEMETOLOGY METHOD 04/19/2024 8:12 AM [facility] Lymphocytes Relative 27.3 % LAB HEMETOLOGY METHOD 04/19/2024 8:12 AM [facility] Monocytes Relative 6.2 % LAB HEMETOLOGY METHOD 04/19/2024 8:12 AM [facility] Eosinophils Relative 3.3 % LAB HEMETOLOGY METHOD 04/19/2024 8:12 AM [facility] Basophils Relative 0.5 % LAB HEMETOLOGY METHOD 04/19/2024 8:12 AM EST [facility] Immature Granulocytes Relative 0.5 % LAB HEMETOLOGY METHOD 04/19/2024 8:12 AM [facility] Neutrophils Absolute 4.02 1.50 - 7.00 K/mcL LAB HEMETOLOGY METHOD 04/19/2024 8:12 AM EST [facility] Lymphocytes Absolute 1.76 1.00 - 5.00 K/mcL LAB HEMETOLOGY METHOD 04/19/2024 8:12 AM [facility] Monocytes Absolute 0.40 0.20 - 1.00 K/mcL LAB HEMETOLOGY METHOD 04/19/2024 8:12 AM [facility] Eosinophils Absolute 0.21 0.00 - 0.50 K/mcL LAB HEMETOLOGY METHOD 04/19/2024 8:12 AM EST [facility] Basophils Absolute 0.03 0.00 - 0.20 K/mcL LAB HEMETOLOGY METHOD 04/19/2024 8:12 AM [facility] Immature Granulocytes Absolute 0.03 0.00 - 0.03 K/mcL LAB HEMETOLOGY METHOD 04/19/2024 8:12 AM [facility] Blood Venous blood specimen / Unknown Venipuncture / Unknown 04/19/2024 7:18 AM EST 04/19/2024 8:05 AM EST us Prabhu SELLERS LAB BLOOD ORDERABLES Final Resul t [facility]) [facility] [address] [place] [address], * B-type natriuretic peptide (04/19/2024 7:18 AM EST) BNP <2 <=100 pcg/mL LAB CHEMISTRY METHOD 04/19/2024 8:44 AM EST [facility] Blood Venous blood specimen / Unknown Venipuncture / Unknown 04/19/2024 7:18 AM EST 04/19/2024 8:06 AM EST us Prabhu SELLERS LAB BLOOD ORDERABLES Final Resul t Performing Organization Address [facility]/ZIP Co de Phone Number [facility] [address] [place] [address], [place] [phone] * Magnesium (04/19/2024 7:18 AM EST) Magnesium 1.9 1.9 - 2.6 mg/dL LAB CHEMISTRY METHOD 04/19/2024 8:36 AM EST [facility] Blood Venous blood specimen / Unknown Venipuncture / Unknown 04/19/2024 7:18 AM EST 04/19/2024 8:06 AM EST us Prabhu SELLERS LAB BLOOD ORDERABLES Final Resul t Performing Organization Address [facility] Co de Phone Number [facility] [address] [place] [address], [place] [phone] * Lipase (04/19/2024 7:18 AM EST) Lipase 36 13 - 75 unit/L LAB CHEMISTRY METHOD 04/19/2024 8:36 AM EST [facility] Blood Venous blood specimen / Unknown Venipuncture / Unknown 04/19/2024 7:18 AM EST 04/19/2024 8:06 AM EST us Prabhu SELLERS LAB BLOOD ORDERABLES Final Resul t Performing Organization Address City/[facility]/ZIP Co de Phone Number [facility] [address] [place] [address], [place] [phone] * Comprehensive metabolic panel (04/19/2024 7:18 AM EST) Sodium 139 133 - 145 mmol/L LAB CHEMISTRY METHOD 04/19/2024 8:36 AM [facility] Potassium 3.7 3.5 - 5.5 mmol/L LAB CHEMISTRY METHOD 04/19/2024 8:36 AM [facility] Chloride 109 96 - 110 mmol/L LAB CHEMISTRY METHOD 04/19/2024 8:36 AM [facility] CO2 25 21 - 32 mmol/L LAB CHEMISTRY METHOD 04/19/2024 8:36 AM [facility] Anion Gap 5 3 - 11 LAB CHEMISTRY METHOD 04/19/2024 8:36 AM [facility] Glucose 88 70 - 100 mg/dL LAB CHEMISTRY METHOD 04/19/2024 8:36 AM [facility] BUN 10 5 - 25 mg/dL LAB CHEMISTRY METHOD 04/19/2024 8:36 AM [facility] Creatinine 0.60 0.50 - 1.10 mg/dL LAB CHEMISTRY METHOD 04/19/2024 8:36 AM [facility] eGFR 122 >=60 mL/min/1. 73m2 LAB CHEMISTRY METHOD 04/19/2024 8:36 AM [facility] Comment:Calculation based on the??Chronic Kidney Disease Epidemiology Collaboration (CKD-EPI) equation refit??without adjustment for race. BUN/Creatinine Ratio 16.7 LAB CHEMISTRY METHOD 04/19/2024 8:36 AM [facility] Calcium 9.4 8.5 - 10.5 mg/dL LAB CHEMISTRY METHOD 04/19/2024 8:36 AM [facility] AST (SGOT) 11 10 - 42 unit/L LAB CHEMISTRY METHOD 04/19/2024 8:36 AM [facility] ALT (SGPT) 20 10 - 60 unit/L LAB CHEMISTRY METHOD 04/19/2024 8:36 AM [facility] Alkaline Phosphatase 78 42 - 121 unit/L LAB CHEMISTRY METHOD 04/19/2024 8:36 AM EST [facility] Total Protein 6.6 6.0 - 8.0 g/dL LAB CHEMISTRY METHOD 04/19/2024 8:36 AM EST [facility] Albumin 3.8 3.2 - 5.0 g/dL LAB CHEMISTRY METHOD 04/19/2024 8:36 AM EST [facility] Total Bilirubin 0.6 0.0 - 1.4 mg/dL LAB CHEMISTRY METHOD 04/19/2024 8:36 AM EST [facility] Blood Venous blood specimen / Unknown Venipuncture / Unknown 04/19/2024 7:18 AM EST 04/19/2024 8:06 AM EST Prabhu SELLERS LAB BLOOD ORDERABLES Final Resul t [facility] [address] [place] [address], from Last 3 Months Insurance [employer] MED[employer] Member Subscriber Plan / Payer (Ef fective 2024-Present) Name:Linda Oliveros Relation to Subscriber:Self Name:Linda Oliveros Payer ID:[id number] Group ID:Not on file Type:Not on file Address: [address] [facility] [place] [address] Care Teams Supervisor Paper Products Relationship Specialty Start Date End Date Hailee Velazquez MD [address] [place] [phone] PCP - General Internal Medicine 04/19/24
--- OUTSIDE RECORDS SUMMARY | 2024-04-23 13:12 | XMS_ITS ---
Author Organization [facility] Address [address] [place] [address] Phone Care Team Providers Care Senior Net Developer Architect Name Role Phone Hailee Velazquez MD Primary Care Provider +1- [phone] Community Health Worker Program Status:Ongoing (Active) Start date:04/19/2024 Enrollment date:04/19/2024 Enrollment reason:Walk-in Current support & services provided:Adult Related service episodes:[facility] - Education (Active), [facility] - Food Insecurity (Active), [facility] - Transportation (Active), [facility] - Behavioral Health (Active) Overview Community Health Worker Program Case Team Name Relationship Phone Stefan Dalal Community Health Worker(Respons ible Staff) Continued Care and Services Coordination
--- OUTSIDE RECORDS SUMMARY | 2024-04-23 13:12 | XMS_ITS | Encounter Summary ---
Author Organization [employer] Address [address] [place] [address] Care Team Providers Care Superannuation Funds Manager Name Role Phone Hailee Velazquez MD Primary Care Provider [phone]- [phone] Reason for Visit * Reason Comments Chest Pain Encounter Details Date Type Department Care Team (Late st Contact Info) Description 04/19/2024 6:35 AM EST - 04/19/2024 12:02 PM [facility] Emergency [facility] Emergency [address] [place] [id number] Kimani Vera MD [address] [address] Chest pain, unspecified type (Primary Dx); Palpitation Discharge Disposition: Home or Self Care Social History Tobacco Use Types Packs/Day Years [...] care for your loved ones. For example, children's institution attendant or elderly care for an older adult? [...] AM EST Sexual Orientation Not on file documented as of this encounter Last Filed Vital Signs Vital Sign Reading [...] Mass Index 21.59 04/19/2024 7:15 AM EST documented in this encounter Discharge Instructions * Discharge Instructions* Kimani Vera MD - 04/19/2024 9:59 AM EST Follow-up with your primary doctor for Holter monitor study * Attachments The following attachments cannot be sent through Care Everywhere. * Chest Pain: Musculoskeletal (Thai) * Palpitations (Thai) * Holter Monitoring (Thai) documented in this encounter Medications at Time of Discharge ketorolac (TORADOL) 10 mg tablet Take 1 tablet (10 mg total) by mouth every 6 (six) hours if needed for moderate pain for up to 5 days. 20 tablet 04/19/2024 04/24/2024 documented as of this encounter Ordered Prescriptions Prescription Sig Dispense Quantity Refills Last Filled Start Date End Date ketorolac (TORADOL) 10 mg tablet Take 1 tablet (10 mg total) by mouth every 6 (six) hours if needed for moderate pain for up to 5 days. 20 tablet 04/19/2024 5 torsemide (DEMADEX) 10 mg tablet Take 1 tablet (10 mg total) by mouth every 12 (twelve) hours if needed (pain). 30 each 04/19/2024 5 documented in this encounter Discharge Disposition Disposition Code Departure Means Destination Comment s Home or Self Care documented in this encounter Progress Notes * Christin Alvarado RN - 04/19/2024 11:49 AM EST PATIENT GIVEN HALTER MONITOR FOR 48 HRS. INSTRUCTED TO FOLLOW UP WITH CARDIOLOGY. * Elle Garza RN - 04/19/2024 6:36 AM EST Biba from home, original call for tachycardia and hypertension. Sts woke up 20 min prior to call with anxiety, checked vitals at home and called ems. Self ambulated for ems. Pt began c/o chest pain when getting out her house. Ems gave 324 mg asa. Smoked before bed and sts is unrelated. * Kimani Vera MD - 04/19/2024 6:32 AM EST Emergency Medicine Note Patient Name: Linda Oliveros Initial Evaluation: 04/19/2024 : 1990 Patient's PCP: Sendy Lynch MD Emergency Physician: Kimani Vera MD History of Present Illness Chief Complaint: Chief Complaint Patient presents with ??? Chest Pain HPI: 33-year-old female who presents with multiple complaints of palpitations tachycardia she states her heart rate is 135 when she took her blood pressure this morning woke up from sleep she felt lightheaded dizzy she also complained of chest pain numbness and tingling. She noted numbness tinglingin her right arm and pain in her neck yesterday. Patient states she smokes some cannabis last night. She does take the Provera but has been mostly finishing this up ROS: I have performed a ROS with the pertinent positives and negatives documented in the history ofpresent illness. Previous History No past medical history on file. No past surgical history on file. No family history on file. has No Known Allergies. No current facility-administered medications on file prior to encounter. No current outpatient medications on file prior to encounter. Physical Exam ED Triage Vitals [04/19/24 0718] Temp Heart Rate Resp BP 37.1 ??C (98.7 ??F) 74 19 112/74 SpO2 Temp Source Heart Rate Source Patient Position 97 % Oral Monitor Sitting BP Location FiO2 (%) Left arm;Upper -- General: Well-appearing, well nourished, in no acute distress HEENT: PERRL, EOMI, external ears and nose appear unremarkable, airway is patent Neck: Supple, full range of motion, no meningismus, no JVD Chest: Clear to auscultation; no evidence of respiratory distress Circulatory: The rate and rhythm , no murmurs rubs or gallops Abdomen: Non-distended, Non-Tender Extremities: Normal ROM, No edema, ranging all extremities without difficulty Skin: Warm and dry, well-perfused , no rashes Neuro: Alert and oriented x 3. no motor or sensory deficits Psyche: Normal affect Results Labs Reviewed CBC WITH AUTO DIFFERENTIAL - Abnormal Result Value WBC 6.5 RBC 4.60 Hemoglobin 12.4 Hematocrit 39.9 MCV 87.3 MCH 27.1 MCHC 31.1 (*) RDW 12.9 Platelets 186 MPV 11.8 (*) NRBC 0.0 NRBC Absolute 0.00 Neutrophils Relative 62.2 Lymphocytes Relative 27.3 Monocytes Relative 6.2 Eosinophils Relative 3.3 Basophils Relative 0.5 Immature Granulocytes Relative 0.5 Neutrophils Absolute 4.02 Lymphocytes Absolute 1.76 Monocytes Absolute 0.40 Eosinophils Absolute 0.21 Basophils Absolute 0.03 Immature Granulocytes Absolute 0.03 CBC AND DIFFERENTIAL Narrative: The following orders were created for panel order CBC and differential. Procedure Abnormality Status --------- ------ CBC auto differential[[id number]] Abnormal Final result Please view results for these tests on the individual orders. TROPONIN I HIGH SENSITIVITY TROPONIN I HIGH SENSITIVITY COMPREHENSIVE METABOLIC PANEL LIPASE MAGNESIUM B-TYPE NATRIURETIC PEPTIDE Abnormal Labs Reviewed CBC WITH AUTO DIFFERENTIAL - Abnormal; Notable for the following components: Result Value MCHC 31.1 (*) MPV 11.8 (*) All other components within normal limits XR Chest 2 Views Final Result No acute chest disease -------- FINAL REPORT -------- Dictated By: Waylon Zhang Dictated Date: 04/19/2024 07:45 ET Assigned Physician: Waylon Zhang Reviewed and Electronically Signed By: Waylon Zhang Signed Date: 04/19/2024 07:47 ET Workstation ID: [id number] Transcribed By: Self Edit Transcribed Date: 04/19/2024 07:45 ET I have discussed the incidental/abnormal imaging and/or lab abnormalities with the patient and haveinstructed them the need for further evaluation and workup with their primary care doctor. I have provided the patient with a paper copy of the abnormality. The laboratory results, imaging results and other diagnostic exam results were reviewed in the EMR. EKG Interpretation normal sinus rhythm 75 bpm no ectopy QTc is 433 ms normal axis. Nonspecific T wave flattening in aVL aVF and V3 and V2 no ST changes Critical Care Time None Medical Decision Making Medications - No data to display Clinical Impressions as of 04/19/241918 Chest pain, unspecified type Palpitation Is a 33-year-old female with likely anxiety related symptoms given her multiple sleep complaints however given her being on the Provera and smoking marijuana we will obtain a D-dimer to rule out PE as she is concerned about thrombosis. Will give fluids Ativan and Toradol for chest pain. She has no significant risk factors for acute coronary syndrome. And given her tachycardia we will try to referfor outpatient referral to cardiology Labs are reassuring D-dimer is negative chest x-ray negative. Will refer for outpatient Holter monitor. Procedures Procedures Diagnosis No diagnosis found. Disposition Data Unavailable ED Prescriptions None Physician Attestation Kimani Vera MD 04/19/24 0823 Kimani Vera MD 04/19/24 0915 Kimani Vera MD 04/19/24 0918 Kimani Vera MD 04/19/24 0959 Kimani Vera MD 04/19/241918 documented in this encounter Plan of Treatment Pending Results Name Type Priority Associated Diagnoses Date /Time Cardiac holter monitor (<= 48 hours) Cardiac Services Routine 04/19/2024 10:5 6 AM EST Scheduled Orders Name Type Priority Associated Diagnoses Orde r Schedule Cardiac holter monitor (<= 48 hours) Cardiac Services Routine Once for 1 Occurrences starting 04/19/2024 until 04/19/2024 documented as of this encounter Procedures Procedure Name Priority Date/Time Associated Diagnosis Comments ECG ANNOTATED 04/20/2024 ECG ANNOTATED 04/20/2024 TROPONIN I HIGH SENSITIVITY STAT 04/19/2024 8:44 AM EST D-DIMER STAT 04/19/2024 8:44 AM EST ECG 12-LEAD STAT 04/19/2024 8:38 AM EST XR CHEST 2 VIEWS STAT 04/19/2024 7:37 AM EST TROPONIN I HIGH SENSITIVITY STAT 04/19/2024 7:18 AM EST CBC WITH AUTO DIFFERENTIAL STAT 04/19/2024 7:18 AM EST CBC AND DIFFERENTIAL STAT 04/19/2024 7:18 AM EST B-TYPE NATRIURETIC PEPTIDE STAT 04/19/2024 7:18 AM EST MAGNESIUM STAT 04/19/2024 7:18 AM EST LIPASE STAT 04/19/2024 7:18 AM EST COMPREHENSIVE METABOLIC PANEL STAT 04/19/2024 7:18 AM EST ECG 12-LEAD STAT 04/19/2024 6:46 AM EST documented in this encounter Results * ECG-Annotated (04/20/2024) us Provider Onbase MD ECG ORDERABLES Final Result * ECG-Annotated (04/20/2024) us Provider Onbase MD ECG ORDERABLES Final Result * D-dimer, quantitative (04/19/2024 8:44 AM EST) D-Dimer, Quant (D-DU) <150 <=230 ng/mL DDU LAB COAGULATION METHOD 04/19/2024 9:09 AM EST [facility] Blood Venous blood specimen / Unknown Venipuncture / Unknown 04/19/2024 8:44 AM EST 04/19/2024 8:52 AM EST Narrative [facility] - 04/19/2024 9:09 AM EST D-Dimer <230 ng/mL (D-Dimer units) is the threshold for exclusion of DVT/PE. D-Dimer may be elevated in: Critically ill, severely infected, trauma patients, DIC, acute CVA, acute TN, unstable angina, AF, old age, , and smoking. D-Dimer may be decreased with: Initiation of heparin therapy and oral anticoagulants. Kimani Vera MD LAB BLOOD ORDERABLES Final Result Performing Organization Address [facility] de Phone Number [facility] [address] [place] [address], * Troponin I high sensitivity (04/19/2024 8:44 AM EST) [facility] High Sensitivity Troponin I 4 <=54 ng/L LAB CHEMISTRY METHOD 04/19/2024 9:20 AM EST [facility] Blood Venous blood specimen / Unknown Venipuncture / Unknown 04/19/2024 8:44 AM EST 04/19/2024 8:52 AM EST Narrative [facility] - 04/19/2024 9:20 AM EST High levels of biotin in samples may falsely decrease hsTroponin values. ??Use caution when interpreting hsTroponin results in patients taking biotin who exhibit renal impairment (eGFR <60) or in patients taking more than 20 mg/day of biotin. [facility] LAB BLOOD ORDERABLES Final Resul t Performing Organization Address [facility] de Phone Number [facility] [address] [place] [address], * ECG 12 lead (04/19/2024 8:38 AM EST) [facility] Ventricular Rate ECG 75 BPM GEMUSE Atrial Rate 75 BPM GEMUSE P-R Interval 134 ms GEMUSE QRS Duration 82 ms GEMUSE Q-T Interval 388 ms GEMUSE QTc 433 ms GEMUSE P Wave Endeavor 40 degrees GEMUSE R Endeavor 64 degrees GEMUSE T Endeavor 59 degrees GEMUSE ECG Interpretation Normal sinus rhythm Normal ECG When compared with ECG of 19-APR-2024 06:46, (unconfirmed) No significant change was found Confirmed by Vanessa PARISH JAMES ([id number]) on 04/19/2024 6:31:57 PM GEMUSE 04/19/2024 8:38 AM EST 04/19/2024 6:31 PM EST us [facility] ECG ORDERABLES Final Result GEM[facility] * XR Chest 2 Views (04/19/2024 7:37 AM EST) Anatomical Region Laterality Modality Body Radiographic Annabelle ging 04/19/2024 7:45 AM EST Impressions 04/19/2024 7:47 AM EST No acute chest disease -------- FINAL REPORT -------- Dictated By: Waylon Zhang Dictated Date: 04/19/2024 07:45 ET Assigned Physician: Waylon Zhang Reviewed and Electronically Signed By: Waylon Zhang Signed Date: 04/19/2024 07:47 ET Workstation ID: [id number] Transcribed By: Self Edit Transcribed Date: 04/19/2024 [...] Signed Date: 04/19/2024 07:47 ET Workstation ID: [id number] Transcribed By: Self Edit Transcribed Date: 04/19/2024 07:45 ET [facility] IMG XR PROCEDURES Final Result * (ABNORMAL) CBC auto differential (04/19/2024 7:18 AM EST) WBC 6.5 4.8 - 10.8 K/mcL LAB HEMETOLOGY METHOD 04/19/2024 8:12 AM [facility] RBC 4.60 3.80 - 4.80 M/mcL LAB HEMETOLOGY METHOD 04/19/2024 8:12 AM [facility] Hemoglobin 12.4 11.5 - 16.0 g/dL LAB HEMETOLOGY METHOD 04/19/2024 8:12 AM [facility] Hematocrit 39.9 35.0 - 47.0 % LAB HEMETOLOGY METHOD 04/19/2024 8:12 AM [facility] MCV 87.3 79.0 - 98.0 FL LAB HEMETOLOGY METHOD 04/19/2024 8:12 AM [facility] MCH 27.1 27.0 - 32.0 pcg LAB HEMETOLOGY METHOD 04/19/2024 8:12 AM [facility] MCHC 31.1(L) 32.0 - 37.0 g/dL LAB HEMETOLOGY METHOD 04/19/2024 8:12 AM [facility] RDW 12.9 11.0 - 15.0 % LAB HEMETOLOGY METHOD 04/19/2024 8:12 AM [facility] Platelets 186 130 - 400 K/mcL LAB HEMETOLOGY METHOD 04/19/2024 8:12 AM [facility] MPV 11.8(H) 7.0 - 11.0 FL LAB HEMETOLOGY METHOD 04/19/2024 8:12 AM [facility] NRBC 0.0 <1.0 % LAB HEMETOLOGY METHOD 04/19/2024 8:12 AM [facility] NRBC Absolute 0.00 <0.10 K/mcL LAB HEMETOLOGY METHOD 04/19/2024 8:12 AM [facility] Neutrophils Relative 62.2 % LAB HEMETOLOGY METHOD 04/19/2024 8:12 AM [facility] Lymphocytes Relative 27.3 % LAB HEMETOLOGY METHOD 04/19/2024 8:12 AM [facility] Monocytes Relative 6.2 % LAB HEMETOLOGY METHOD 04/19/2024 8:12 AM [facility] Eosinophils Relative 3.3 % LAB HEMETOLOGY METHOD 04/19/2024 8:12 AM [facility] Basophils Relative 0.5 % LAB HEMETOLOGY METHOD 04/19/2024 8:12 AM [facility] Immature Granulocytes Relative 0.5 % LAB HEMETOLOGY METHOD 04/19/2024 8:12 AM [facility] Neutrophils Absolute 4.02 1.50 - 7.00 K/mcL LAB HEMETOLOGY METHOD 04/19/2024 8:12 AM [facility] Lymphocytes Absolute 1.76 1.00 - 5.00 K/mcL LAB HEMETOLOGY METHOD 04/19/2024 8:12 AM [facility] Monocytes Absolute 0.40 0.20 - 1.00 K/mcL LAB HEMETOLOGY METHOD 04/19/2024 8:12 AM [facility] Eosinophils Absolute 0.21 0.00 - 0.50 K/mcL LAB HEMETOLOGY METHOD 04/19/2024 8:12 AM EST [facility] Basophils Absolute 0.03 0.00 - 0.20 K/[facility] LAB HEMETOLOGY METHOD 04/19/2024 8:12 AM EST [facility] Immature Granulocytes Absolute 0.03 0.00 - 0.03 K/[facility] LAB HEMETOLOGY METHOD 04/19/2024 8:12 AM EST [facility] Blood Venous blood specimen / Unknown Venipuncture / Unknown 04/19/2024 7:18 AM EST 04/19/2024 8:05 AM EST us [facility] LAB BLOOD ORDERABLES Final Resul t Performing Organization Address City/[facility]/ZIP Co de Phone Number [facility] [address] [place] [address], [place] [phone] * B-type natriuretic peptide (04/19/2024 7:18 AM EST) BNP <2 <=100 pcg/mL LAB CHEMISTRY METHOD 04/19/2024 8:44 AM EST [facility] Blood Venous blood specimen / Unknown Venipuncture / Unknown 04/19/2024 7:18 AM EST 04/19/2024 8:06 AM EST us [facility] LAB BLOOD ORDERABLES Final Resul t [facility] [address] [place] [address], [place] [phone] * Magnesium (04/19/2024 7:18 AM EST) Magnesium 1.9 1.9 - 2.6 mg/dL LAB CHEMISTRY METHOD 04/19/2024 8:36 AM EST [facility] Blood Venous blood specimen / Unknown Venipuncture / Unknown 04/19/2024 7:18 AM EST 04/19/2024 8:06 AM EST [facility] LAB BLOOD ORDERABLES Final Resul t Performing Organization Address City/[facility]/ZIP Co de Phone Number [facility] [address] [place] [address], [place] [phone] * Lipase (04/19/2024 7:18 AM EST) Lipase 36 13 - 75 unit/L LAB CHEMISTRY METHOD 04/19/2024 8:36 AM [facility] Blood Venous blood specimen / Unknown Venipuncture / Unknown 04/19/2024 7:18 AM EST 04/19/2024 8:06 AM EST [facility] LAB BLOOD ORDERABLES Final Resul t Performing Organization Address [facility]/ZIP Co de Phone Number [facility] [address] [place] [address], [place] [phone] * Comprehensive metabolic panel (04/19/2024 7:18 AM EST) Sodium 139 133 - 145 mmol/L LAB CHEMISTRY METHOD 04/19/2024 8:36 AM [facility] Potassium 3.7 3.5 - 5.5 mmol/L LAB CHEMISTRY METHOD 04/19/2024 8:36 AM [facility] Chloride 109 96 - 110 mmol/L LAB CHEMISTRY METHOD 04/19/2024 8:36 AM [facility] CO2 25 21 - 32 mmol/L LAB CHEMISTRY METHOD 04/19/2024 8:36 AM [facility] Anion Gap 5 3 - 11 LAB CHEMISTRY METHOD 04/19/2024 8:36 AM [facility] Glucose 88 70 - 100 mg/dL LAB CHEMISTRY METHOD 04/19/2024 8:36 AM [facility] BUN 10 5 - 25 mg/dL LAB CHEMISTRY METHOD 04/19/2024 8:36 AM [facility] Creatinine 0.60 0.50 - 1.10 mg/dL LAB CHEMISTRY METHOD 04/19/2024 8:36 AM [facility] eGFR 122 >=60 mL/min/1. 73m2 LAB CHEMISTRY METHOD 04/19/2024 8:36 AM [facility] Comment:Calculation based on the??Chronic Kidney Disease Epidemiology Collaboration (CKD-EPI) equation refit??without adjustment for race. BUN/Creatinine Ratio 16.7 LAB CHEMISTRY METHOD 04/19/2024 8:36 AM [facility] Calcium 9.4 8.5 - 10.5 mg/dL LAB CHEMISTRY METHOD 04/19/2024 8:36 AM [facility] AST (SGOT) 11 10 - 42 unit/L LAB CHEMISTRY METHOD 04/19/2024 8:36 AM [facility] ALT (SGPT) 20 10 - 60 unit/L LAB CHEMISTRY METHOD 04/19/2024 8:36 AM [facility] Alkaline Phosphatase 78 42 - 121 unit/L LAB CHEMISTRY METHOD 04/19/2024 8:36 AM [facility] Total Protein 6.6 6.0 - 8.0 g/dL LAB CHEMISTRY METHOD 04/19/2024 8:36 AM [facility] Albumin 3.8 3.2 - 5.0 g/dL LAB CHEMISTRY METHOD 04/19/2024 8:36 AM [facility] Total Bilirubin 0.6 0.0 - 1.4 mg/dL LAB CHEMISTRY METHOD 04/19/2024 8:36 AM [facility] Blood Venous blood specimen / Unknown Venipuncture / Unknown 04/19/2024 7:18 AM EST 04/19/2024 8:06 AM EST us [facility] LAB BLOOD ORDERABLES Final Resul t [facility] [address] [place] [address], [place] [phone] * Troponin I high sensitivity (04/19/2024 7:18 AM EST) [facility] High Sensitivity Troponin I 4 <=54 ng/L LAB CHEMISTRY METHOD 04/19/2024 8:30 AM EST [facility] Blood Venous blood specimen / Unknown Venipuncture / Unknown 04/19/2024 7:18 AM EST 04/19/2024 8:05 AM EST Narrative [facility] - 04/19/2024 8:30 AM EST High levels of biotin in samples may falsely decrease hsTroponin values. ??Use caution when interpreting hsTroponin results in patients taking biotin who exhibit renal impairment (eGFR <60) or in patients taking more than 20 mg/day of biotin. Prab[facility] SELLERS LAB BLOOD ORDERABLES Final Resul t Performing Organization Address City/[facility] Co de Phone Number [facility] [address] [place] [address], [place] [phone] * ECG 12 lead (04/19/2024 6:46 AM EST) [facility] Ventricular Rate ECG 85 BPM GEMUSE Atrial Rate 85 BPM GEMUSE P-R Interval 138 ms GEMUSE QRS Duration 70 ms GEMUSE Q-T Interval 352 ms GEMUSE QTc 418 ms GEMUSE P Wave Endeavor 49 degrees GEMUSE R Endeavor 59 degrees GEMUSE T Endeavor 54 degrees GEMUSE ECG Interpretation Normal sinus rhythm Nonspecific T wave abnormality Abnormal ECG No previous ECGs available Confirmed by Vanessa PARISH JAMES ([id number]) on 04/19/2024 6:30:47 PM GEMUSE 04/19/2024 6:46 AM EST 04/19/2024 6:30 PM EST us Prab[facility] SELLERS ECG ORDERABLES Final Result Performing Organization Address City/[facility]/ZIP Co de Phone Number GEMUSE documented in this encounter Visit Diagnoses Diagnosis Chest pain, unspecified type- Primary Palpitation Palpitations documented in this encounter Administered Medications Inactive Administered Medications - up to 3 most recent administrations Medication Order MAR Action Action Date Dose Rate Site ketorolac (TORADOL) injection 15 mg 15 mg, intravenous, Once, On Fri04/19/24 at 0824, For 1 dose Given 04/19/2024 8:49 AM EST 15 mg LORazepam (ATIVAN) injection 1 mg 1 mg, intravenous, Once, On Fri04/19/24 at 0824, For 1 dose, Prior to IV use, lorazepam injection should be DILUTED with an equal volume of compatible solution; Rate of administration should NOT exceed 2 mg/min. Given 04/19/2024 8:48 AM EST 1 mg sodium chloride 0.9 % bolus 1,000 mL 1,000 mL, intravenous, at 1,000 mL/hr, Administer over 1 Hours, Once, On Fri04/19/24 at 0824, For 1 dose New Bag 04/19/2024 8:48 AM EST 1,000 mL 1000 mL/hr sodium chloride 0.9 % bolus 500 mL 500 mL, intravenous, at 1,000 mL/hr, Administer over 30 Minutes, Once, On Fri04/19/24 at 1012, For 1 dose New Bag 04/19/2024 10:12 AM EST 500 mL 1000 mL/hr documented in this encounter Discontinued Medications Medication Sig Discontinue Reason Start Date End Da te torsemide (DEMADEX) 10 mg tablet Take 1 tablet (10 mg total) by mouth every 12 (twelve) hours if needed (pain). 04/19/2024 04/19/2024 documented as of this encounter Active and Recently Administered Medications Times are shown in EST. Scheduled Medication Order 04/17/2024 04/18/2024 04/19/2024 ketorolac (TORADOL) injection 15 mg (COMPLETED) 15 mg, intravenous, Once, On Fri04/19/24 at 0824, For 1 dose 0849 (Given - Provid er: Christin Alvarado RN) LORazepam (ATIVAN) injection 1 mg (COMPLETED) 1 mg, intravenous, Once, On Fri04/19/24 at 0824, For 1 dose, Prior to IV use, lorazepam injection should be DILUTED with an equal volume of compatible solution; Rate of administration should NOT exceed 2 mg/min. 0848 (Given - Provid er: Christin Alvarado RN) sodium chloride 0.9 % bolus 1,000 mL (COMPLETED) 1,000 mL, intravenous, at 1,000 mL/hr, Administer over 1 Hours, Once, On Fri04/19/24 at 0824, For 1 dose 0848 (New Bag - Prov ider: Christin Alvarado RN)1155 (Stopped - Provider: Christin Alvarado RN) sodium chloride 0.9 % bolus 500 mL (COMPLETED) 500 mL, intravenous, at 1,000 mL/hr, Administer over 30 Minutes, Once, On Fri04/19/24 at 1012, For 1 dose 1012 (New Bag - Prov ider: Christin Alvarado RN)1042 (Due: Stopped - Provider: Christin Alvarado RN) documented in this encounter Care Teams Superannuation Funds Manager Relationship Specialty Start Date End Date Hailee Velazquez MD [address] [place] [phone] PCP - General Internal Medicine 04/19/24 documented as of this encounter
--- OUTSIDE RECORDS SUMMARY | 2024-04-23 13:12 | XMS_ITS ---
Author Organization [facility] Address [address] [place] [address] Phone Care Team Providers [employer] Name Role Phone Hailee Velazquez MD Primary Care Provider [phone]- [phone] [facility] - Behavioral Health Status:Ongoing (Active) Start date:04/19/2024 Enrollment date:04/19/2024 Enrollment reason:Walk-in Related program episode:Community Health Worker Program (Active) Overview Behavior Health service of Community Health Worker Program Case Team Name Relationship Phone Stefan Dalal Community Health Worker(Respons ible Staff) Continued Care and Services Coordination
--- OUTSIDE RECORDS SUMMARY | 2024-04-23 13:12 | XMS_ITS | Encounter Summary ---
Author Organization [facility] [place] [address] Care Team Providers Care Fabric Designer Name Role Phone Hailee Velazquez MD Primary Care Provider +1- [phone] Encounter Details Date Type Department Care Team (Late st Contact Info) Description 04/19/2024 Community Care Management [place] [facility] [address] [place] [address] Stefan Dalal Social History Tobacco Use Types Packs/Day Years [...] for your loved ones. For example, child advocate or elderly care for an older adult? [...] on file documented as of this encounter Progress Notes * Stefan Dalal - 04/19/2024 2:51 PM EST Outreached patient on 04/19/24 Thrive Screening: Complete Outcome: Positive: Patient currently experiencing food insecurity, and health literacy support. Also interested in PT1 as well as child advocate services. Needs support for behavorial health services at this time as well. Interested in GED or Trade. Follow up plan: 1-3 Days for further evaluation Deb Dalal Community Health Worker documented in this encounter Plan of Treatment Not on file documented as of this encounter Visit Diagnoses Not on filedocumented in this encounter Care Teams Fabric Designer Relationship Specialty Start Date End Date Hailee Velazquez MD [address] [place] [address] PCP - General Internal Medicine 04/19/24 documented as of this encounter
--- OUTSIDE RECORDS SUMMARY | 2024-04-23 13:12 | XMS_ITS ---
Author Organization [facility] Address [address] [place] [address] Phone Care Team Providers Care Community Development Worker Name Role Phone Hailee Velazquez MD Primary Care Provider +1- [phone] [facility] - Transportation Status:Ongoing (Active) Start date:04/19/2024 Enrollment date:04/19/2024 Enrollment reason:Walk-in Related social drivers of health:Transportation Related program episode:Community Health Worker Program (Active) Overview Community Health Worker Program - Transportation Service Episode Case Team Name Relationship Phone Stefan Dalal Community Health Worker(Respons ible Staff) Continued Care and Services Coordination
== END 2024-04-23 13:27 | disposition home or self-care (01) ==
PROVIDERS: PCP Internal Medicine; Visit Provider Nurse Practitioner Family
DX: T78.1XXA Other adverse food reactions, not elsewhere classified, initial encounter (principal)

== ENCOUNTER → 2024-04-23 12:49 | Outpatient (BNVA) | payer OTHER, SELFPAY | PROVIDERS: PCP Internal Medicine | DX: T78.1XXA Other adverse food reactions, not elsewhere classified, initial encounter (principal) | CPT/HCPCS: 99212 ==

== ENCOUNTER 2024-05-10 09:39 | Outpatient (REF) | payer OTHER, SELFPAY ==
--- OUTSIDE RECORDS SUMMARY | 2024-05-10 12:47 | XMS_ITS | Clinical Summary ---
Author Organization [facility] Address [address] [place] [address] Phone Care Team Providers Care Manager Quality Systems Name Role Phone Hailee Velazquez MD Primary Care Provider +1- [phone] Allergies No known active allergies Medications torsemide [...] Type Department Care Team Description 04/26/2024 Telephone [facility] [address] [place] [address] Stefan Dalal 04/19/2024 6:35 AM EST - 04/19/2024 12:02 PM EST Emergency [facility] Emergency [address] [place] [id number] Kimani Vera MD Chest pain, unspecified type (Primary Dx); Palpitation Discharge Disposition: Home or Self Care 04/19/2024 Community Care Management [facility] [address] [place] [phone] Stefan Dalal from Last 3 Months Social [...] for your loved ones. For example, child watch attendant or elderly care for an older [...] LAB CHEMISTRY METHOD 04/19/2024 9:[address] [facility] Blood Venous blood specimen / Unknown Venipuncture / Unknown 04/19/2024 8:44 AM EST 04/19/2024 8:[address] [facility] - 04/19/2024 9:20 AM EST High levels of biotin in samples may falsely decrease hsTroponin values. ??Use caution when interpreting hsTroponin results in patients taking biotin who exhibit renal impairment (eGFR <60) or in patients taking more than 20 mg/day of biotin. Prabhu SELLERS LAB BLOOD ORDERABLES Final Resul t Performing Organization Address [facility] Co de Phone Number [facility] [address] [place] [address], * D-dimer, quantitative (04/19/2024 8:44 AM EST) Pathologist [facility] D-Dimer, Quant (D-DU) <150 <=230 ng/mL DDU LAB COAGULATION METHOD 04/19/2024 9:[address] [facility] Blood Venous blood specimen / Unknown Venipuncture / Unknown 04/19/2024 8:44 AM EST 04/19/2024 8:[address] [facility] - 04/19/2024 9:09 AM EST D-Dimer <230 ng/mL (D-Dimer units) is the threshold for exclusion of DVT/PE. D-Dimer may be elevated in: Critically ill, severely infected, trauma patients, DIC, acute CVA, acute NV, unstable angina, AF, old age, , and smoking. D-Dimer may be decreased with: Initiation of heparin therapy and oral anticoagulants. Kimani Vera MD LAB BLOOD ORDERABLES Final Result Performing Organization Address [facility] de Phone Number [facility] [address] [place] [address], * ECG 12 lead (04/19/2024 8:38 AM EST) Only the most recent of2 resultswithin the time period is included. Pathologist [facility] Ventricular Rate ECG 75 BPM GEMUSE Atrial Rate 75 BPM GEMUSE P-R Interval 134 ms GEMUSE QRS Duration 82 ms GEMUSE Q-T Interval 388 ms GEMUSE QTc 433 ms GEMUSE P Wave [place] 40 degrees GEMUSE R [place] 64 degrees GEMUSE T [place] 59 degrees GEMUSE ECG Interpretation Normal sinus [...] Signed Date: 04/19/2024 07:47 ET Workstation ID: [id number] Transcribed By: Self Edit Transcribed Date: 04/19/2024 [...] Signed Date: 04/19/2024 07:47 ET Workstation ID: [id number] Transcribed By: Self Edit Transcribed Date: 04/19/2024 07:45 ET Prabhu SELLERS IMG XR PROCEDURES Final Result * (ABNORMAL) CBC auto differential (04/19/2024 7:18 AM EST) WBC 6.5 4.8 - 10.8 K/mcL LAB HEMETOLOGY METHOD 04/19/2024 8:12 AM [facility] RBC 4.60 3.80 - 4.80 M/mcL LAB HEMETOLOGY METHOD 04/19/2024 8:12 AM [facility] Hemoglobin 12.4 11.5 - 16.0 g/dL LAB HEMETOLOGY METHOD 04/19/2024 8:12 AM [facility] Hematocrit 39.9 35.0 - 47.0 % LAB HEMETOLOGY METHOD 04/19/2024 8:12 AM [facility] MCV 87.3 79.0 - 98.0 FL LAB HEMETOLOGY METHOD 04/19/2024 8:12 AM [facility] MCH 27.1 27.0 - 32.0 pcg LAB HEMETOLOGY METHOD 04/19/2024 8:12 AM [facility] MCHC 31.1(L) 32.0 - 37.0 g/dL LAB HEMETOLOGY METHOD 04/19/2024 8:12 AM [facility] RDW 12.9 11.0 - 15.0 % LAB HEMETOLOGY METHOD 04/19/2024 8:12 AM [facility] Platelets 186 130 - 400 K/mcL LAB HEMETOLOGY METHOD 04/19/2024 8:12 AM [facility] MPV 11.8(H) 7.0 - 11.0 FL LAB HEMETOLOGY METHOD 04/19/2024 8:12 AM [facility] NRBC 0.0 <1.0 % LAB HEMETOLOGY METHOD 04/19/2024 8:12 AM [facility] NRBC Absolute 0.00 <0.10 K/mcL LAB HEMETOLOGY METHOD 04/19/2024 8:12 AM [facility] Neutrophils Relative 62.2 % LAB HEMETOLOGY METHOD 04/19/2024 8:12 AM [facility] Lymphocytes Relative 27.3 % LAB HEMETOLOGY METHOD 04/19/2024 8:12 AM [facility] Monocytes Relative 6.2 % LAB HEMETOLOGY METHOD 04/19/2024 8:12 AM [facility] Eosinophils Relative 3.3 % LAB HEMETOLOGY METHOD 04/19/2024 8:12 AM [facility] Basophils Relative 0.5 % LAB HEMETOLOGY METHOD 04/19/2024 8:12 AM [facility] Immature Granulocytes Relative 0.5 % LAB HEMETOLOGY METHOD 04/19/2024 8:12 AM [facility] Neutrophils Absolute 4.02 1.50 - 7.00 K/mcL LAB HEMETOLOGY METHOD 04/19/2024 8:12 AM [facility] Lymphocytes Absolute 1.76 1.00 - 5.00 K/mcL LAB HEMETOLOGY METHOD 04/19/2024 8:12 AM [facility] Monocytes Absolute 0.40 0.20 - 1.00 K/mcL LAB HEMETOLOGY METHOD 04/19/2024 8:12 AM [facility] Eosinophils Absolute 0.21 0.00 - 0.50 K/mcL LAB HEMETOLOGY METHOD 04/19/2024 8:[address] [facility] Basophils Absolute 0.03 0.00 - 0.20 K/[facility] LAB HEMETOLOGY METHOD 04/19/2024 8:[address] [facility] Immature Granulocytes Absolute 0.03 0.00 - 0.03 K/[facility] LAB HEMETOLOGY METHOD 04/19/2024 8:[address] [facility] Blood Venous blood specimen / Unknown Venipuncture / Unknown 04/19/2024 7:18 AM EST 04/19/2024 8:05 AM EST us Prabhu SELLERS LAB BLOOD ORDERABLES Final Resul t Performing Organization Address City/[facility]/ZIP Co de Phone Number [facility] [address] [place] [address], * B-type natriuretic peptide (04/19/2024 7:18 AM EST) BNP <2 <=100 pcg/mL LAB CHEMISTRY METHOD 04/19/2024 8:[address] [facility] Blood Venous blood specimen / Unknown Venipuncture / Unknown 04/19/2024 7:18 AM EST 04/19/2024 8:06 AM EST us Prabhu SELLERS LAB BLOOD ORDERABLES Final Resul t [facility] [address] [place] [address], [place] [phone] * Magnesium (04/19/2024 7:18 AM EST) Magnesium 1.9 1.9 - 2.6 mg/dL LAB CHEMISTRY METHOD 04/19/2024 8:[address] [facility] Blood Venous blood specimen / Unknown Venipuncture / Unknown 04/19/2024 7:18 AM EST 04/19/2024 8:06 AM EST us Prabhu SELLERS LAB BLOOD ORDERABLES Final Resul t Performing Organization Address City/[facility]/ZIP Co de Phone Number [facility] [address] [place] [address], [place] [phone] * Lipase (04/19/2024 7:18 AM EST) Lipase 36 13 - 75 unit/L LAB CHEMISTRY METHOD 04/19/2024 8:36 AM [facility] Blood Venous blood specimen / Unknown Venipuncture / Unknown 04/19/2024 7:18 AM EST 04/19/2024 8:06 AM EST us Prabhu SELLERS LAB BLOOD ORDERABLES Final Resul t Performing Organization Address [facility] Co de Phone Number [facility] [address] [place] [address], [place] [phone] * Comprehensive metabolic panel (04/19/2024 7:18 AM EST) Pathologist [facility] Sodium 139 133 - 145 mmol/L LAB CHEMISTRY METHOD 04/19/2024 8:36 AM [facility] Potassium 3.7 3.5 - 5.5 mmol/L LAB CHEMISTRY METHOD 04/19/2024 8:36 AM [facility] Chloride 109 96 - 110 mmol/L LAB CHEMISTRY METHOD 04/19/2024 8:36 AM [facility] CO2 25 21 - 32 mmol/L LAB CHEMISTRY METHOD 04/19/2024 8:36 AM [facility] Anion Gap 5 3 - 11 LAB CHEMISTRY METHOD 04/19/2024 8:36 AM [facility] Glucose 88 70 - 100 mg/dL LAB CHEMISTRY METHOD 04/19/2024 8:36 AM [facility] BUN 10 5 - 25 mg/dL LAB CHEMISTRY METHOD 04/19/2024 8:36 AM [facility] Creatinine 0.60 0.50 - 1.10 mg/dL LAB CHEMISTRY METHOD 04/19/2024 8:36 AM [facility] eGFR 122 >=60 mL/min/1. 73m2 LAB CHEMISTRY METHOD 04/19/2024 8:36 AM [facility] Comment:Calculation based on the??Chronic Kidney Disease Epidemiology Collaboration (CKD-EPI) equation refit??without adjustment for race. BUN/Creatinine Ratio 16.7 LAB CHEMISTRY METHOD 04/19/2024 8:36 AM [facility] Calcium 9.4 8.5 - 10.5 mg/dL LAB CHEMISTRY METHOD 04/19/2024 8:36 AM [facility] AST (SGOT) 11 10 - 42 unit/L LAB CHEMISTRY METHOD 04/19/2024 8:36 AM [facility] ALT (SGPT) 20 10 - 60 unit/L LAB CHEMISTRY METHOD 04/19/2024 8:36 AM [facility] Alkaline Phosphatase 78 42 - 121 unit/L LAB CHEMISTRY METHOD 04/19/2024 8:36 AM [facility] Total Protein 6.6 6.0 - 8.0 g/dL LAB CHEMISTRY METHOD 04/19/2024 8:36 AM [facility] Albumin 3.8 3.2 - 5.0 g/dL LAB CHEMISTRY METHOD 04/19/2024 8:36 AM [facility] Total Bilirubin 0.6 0.0 - 1.4 mg/dL LAB CHEMISTRY METHOD 04/19/2024 8:36 AM [facility] Blood Venous blood specimen / Unknown Venipuncture / Unknown 04/19/2024 7:18 AM EST 04/19/2024 8:06 AM EST us Prabhu SELLERS LAB BLOOD ORDERABLES Final Resul t [facility] [address] [place] [address], [place] [phone] from Last 3 Months Insurance [employer] Member Subscriber Plan / Payer (Ef fective 2024-Present) Name:Linda Oliveros Relation to Subscriber:Self Name:Linda Oliveros Payer ID:[id number] Group ID:Not on file Type:Not on file Address: [facility] [address] [address] Care Teams Manager Quality Systems Relationship Specialty Start Date End Date Hailee Velazquez MD [address] [place] [phone] PCP - General Internal Medicine 04/19/24
--- OUTSIDE RECORDS SUMMARY | 2024-05-10 12:47 | XMS_ITS ---
Author Organization [facility] Address [address] [place] [address] Phone Care Team Providers Care Poultry Tender Name Role Phone Hailee Velazquez MD Primary Care Provider +1- [phone] [facility] - Behavioral Health Status:Closed (Closed) Start date:04/19/2024 Enrollment date:04/19/2024 Enrollment reason:Walk-in End date:04/26/2024 Close reason:Completed program Related program episode:Community Health Worker Program (Closed) Overview Behavior Health service of Community Health Worker Program Continued Care and Services Coordination
--- OUTSIDE RECORDS SUMMARY | 2024-05-10 12:47 | XMS_ITS ---
Author Organization [facility] Address [address] [place] [address] Phone Care Team Providers Care Diet Assistant Name Role Phone Hailee Velazquez MD Primary Care Provider +1- [phone] [facility] - Transportation Status:Ongoing (Active) Start date:04/19/2024 Enrollment date:04/19/2024 Enrollment reason:Walk-in Related social drivers of health:Transportation Related program episode:Community Health Worker Program (Closed) Overview Community Health Worker Program - Transportation Service Episode Case Team Name Relationship Phone Stefan Dalal Community Health Worker(Respons ible Staff) Continued Care and Services Coordination
--- OUTSIDE RECORDS SUMMARY | 2024-05-10 12:47 | XMS_ITS | Encounter Summary ---
Author Organization [facility] [place] [address] Care Team Providers Care Hand Bender Name Role Phone Hailee Velazquez MD Primary Care Provider +1- [phone] Encounter Details Date Type Department Care Team (Late st Contact Info) Description 04/19/2024 Community Care Management [place] [facility] [address] [place] [address] Stefan Dalal Social History Tobacco [...] for your loved ones. For example, child protective services specialist or elderly care for an older [...] interested in PT1 as well as child protective services specialist services. Needs support for behavorial health services at this time as well. Interested in GED or Trade. Follow up plan: 1-3 Days for further evaluation Deb Dalal Community Health Worker documented in this encounter Plan of Treatment Not on file documented as of this encounter Visit Diagnoses Not on filedocumented in this encounter Care Teams Hand Bender Relationship Specialty Start Date End Date Hailee Velazquez MD [address] [place] [address] PCP - General Internal Medicine 04/19/24 documented as of this encounter
--- OUTSIDE RECORDS SUMMARY | 2024-05-10 12:47 | XMS_ITS | Encounter Summary ---
Author Organization [employer] Address [address] [place] [address] Care Team Providers Care Kerfer Machine Operator Name Role Phone Hailee Velazquez MD Primary Care Provider +1- [phone] Reason for Visit * Reason Comments Chest Pain Encounter Details Date Type Department Care Team (Late st Contact Info) Description 04/19/2024 6:35 AM EST - 04/19/2024 12:02 PM [facility] [[email or web address] Emergency [facility] Emergency [address] [place] [id number] Kimani Vera MD [address] [address] Chest pain, unspecified type (Primary Dx); Palpitation [...] for your loved ones. For example, child care group leader or elderly care for an older adult? [...] through Care Everywhere. * Chest Pain: Musculoskeletal (Syrian) * Palpitations (Syrian) * Holter Monitoring (Syrian) documented in this encounter Medications at Time [...] Procedure Abnormality Status --------- ------ CBC auto differential[[id number]] Abnormal Final result Please view results for [...] Signed Date: 04/19/2024 07:47 ET Workstation ID: [id number] Transcribed By: Self Edit Transcribed Date: 04/19/2024 [...] ECG ANNOTATED 04/20/2024 CARDIAC HOLTER MONITOR (3RD CONSTITUTION PARTY REPORT GENERATED) Routine 04/19/2024 10:56 AM EST [...] Final Result * CARDIAC HOLTER MONITOR (3RD CONSTITUTION PARTY REPORT GENERATED) (04/19/2024 10:56 AM EST) Anatomical [...] * D-dimer, quantitative (04/19/2024 8:44 AM EST) [facility] D-Dimer, Quant (D-DU) <150 <=230 ng/mL DDU LAB COAGULATION METHOD 04/19/2024 9:09 AM EST [facility] Blood Venous blood specimen / Unknown Venipuncture / Unknown 04/19/2024 8:44 AM EST 04/19/2024 8:52 AM EST [facility] - 04/19/2024 9:09 AM EST D-Dimer <230 ng/mL (D-Dimer units) is the threshold for exclusion of DVT/PE. D-Dimer may be elevated in: Critically ill, severely infected, trauma patients, DIC, acute CVA, acute VT, unstable angina, AF, old age, , and smoking. D-Dimer may be decreased with: Initiation of heparin therapy and oral anticoagulants. Kimani Vera MD LAB BLOOD ORDERABLES Final Result Performing Organization Address City/State/[facility] Co de Phone Number [facility] [address] [place] [address], [place] [phone] * Troponin I high sensitivity (04/19/2024 8:44 AM EST) [facility] High Sensitivity Troponin I 4 <=54 ng/L LAB CHEMISTRY METHOD 04/19/2024 9:20 AM EST [facility] Blood Venous blood specimen / Unknown Venipuncture / Unknown 04/19/2024 8:44 AM EST 04/19/2024 8:52 AM EST [facility] - 04/19/2024 9:20 AM EST High levels of biotin in samples may falsely decrease hsTroponin values. ??Use caution when interpreting hsTroponin results in patients taking biotin who exhibit renal impairment (eGFR <60) or in patients taking more than 20 mg/day of biotin. Prabhu SELLERS LAB BLOOD ORDERABLES Final Resul t Performing Organization Address City/State/[facility] Co de Phone Number [facility] [address] [place] [address], * ECG 12 lead (04/19/2024 8:38 AM EST) Ventricular Rate ECG 75 BPM GEMUSE Atrial Rate 75 BPM GEMUSE P-R Interval 134 ms GEMUSE QRS Duration 82 ms GEMUSE Q-T Interval 388 ms GEMUSE QTc 433 ms GEMUSE P Wave [place] 40 degrees GEMUSE R [place] 64 degrees GEMUSE T [place] 59 degrees GEMUSE ECG Interpretation Normal sinus rhythm Normal ECG When compared with ECG of 19-APR-2024 06:46, (unconfirmed) No significant change was found Confirmed by Vanessa PARISH JAMES ([id number]) on 04/19/2024 6:31:57 PM GEMUSE 04/19/2024 8:38 AM EST 04/19/2024 6:31 PM EST [facility] ECG ORDERABLES Final Result Performing Organization Address [facility] Co de Phone Number GEMUSE * [...] Signed Date: 04/19/2024 07:47 ET Workstation ID: [id number] Transcribed By: Self Edit Transcribed Date: 04/19/2024 [...] Signed Date: 04/19/2024 07:47 ET Workstation ID: [id number] Transcribed By: Self Edit Transcribed Date: 04/19/2024 07:45 ET Prab[facility]LLERS IMG XR PROCEDURES Final Result * (ABNORMAL) CBC auto differential (04/19/2024 7:18 AM EST) Pathologist [facility] WBC 6.5 4.8 - 10.8 K/mcL LAB HEMETOLOGY METHOD 04/19/2024 8:[address] [facility] RBC 4.60 3.80 - 4.80 M/mcL LAB HEMETOLOGY METHOD 04/19/2024 8:[address] [facility] Hemoglobin 12.4 11.5 - 16.0 g/dL LAB HEMETOLOGY METHOD 04/19/2024 8:[address] [facility] Hematocrit 39.9 35.0 - 47.0 % LAB HEMETOLOGY METHOD 04/19/2024 8:[address] [facility] MCV 87.3 79.0 - 98.0 FL LAB HEMETOLOGY METHOD 04/19/2024 8:[address] [facility] MCH 27.1 27.0 - 32.0 pcg LAB HEMETOLOGY METHOD 04/19/2024 8:[address] [facility] MCHC 31.1(L) 32.0 - 37.0 g/dL LAB HEMETOLOGY METHOD 04/19/2024 8:[address] [facility] RDW 12.9 11.0 - 15.0 % LAB HEMETOLOGY METHOD 04/19/2024 8:[address] [facility] Platelets 186 130 - 400 K/mcL LAB HEMETOLOGY METHOD 04/19/2024 8:[address] [facility] MPV 11.8(H) 7.0 - 11.0 FL LAB HEMETOLOGY METHOD 04/19/2024 8:[address] [facility] NRBC 0.0 <1.0 % LAB HEMETOLOGY METHOD 04/19/2024 8:[address] [facility] NRBC Absolute 0.00 <0.10 K/mcL LAB HEMETOLOGY METHOD 04/19/2024 8:[address] [facility] Neutrophils Relative 62.2 % LAB HEMETOLOGY METHOD 04/19/2024 8:[address] [facility] Lymphocytes Relative 27.3 % LAB HEMETOLOGY METHOD 04/19/2024 8:[address] [facility] Monocytes Relative 6.2 % LAB HEMETOLOGY METHOD 04/19/2024 8:[address] [facility] Eosinophils Relative 3.3 % LAB HEMETOLOGY METHOD 04/19/2024 8:[address] [facility] Basophils Relative 0.5 % LAB HEMETOLOGY METHOD 04/19/2024 8:[address] [facility] Immature Granulocytes Relative 0.5 % LAB HEMETOLOGY METHOD 04/19/2024 8:12 AM EST [facility] Neutrophils Absolute 4.02 1.50 - 7.00 K/mcL LAB HEMETOLOGY METHOD 04/19/2024 8:12 AM EST [facility] Lymphocytes Absolute 1.76 1.00 - 5.00 K/mcL LAB HEMETOLOGY METHOD 04/19/2024 8:12 AM EST [facility] Monocytes Absolute 0.40 0.20 - 1.00 K/[facility] LAB HEMETOLOGY METHOD 04/19/2024 8:12 AM EST [facility] Eosinophils Absolute 0.21 0.00 - 0.50 K/mcL LAB HEMETOLOGY METHOD 04/19/2024 8:12 AM EST [facility] Basophils Absolute 0.03 0.00 - 0.20 K/mcL LAB HEMETOLOGY METHOD 04/19/2024 8:12 AM EST [facility] Immature Granulocytes Absolute 0.03 0.00 - 0.03 K/[facility] LAB HEMETOLOGY METHOD 04/19/2024 8:12 AM EST [facility] Blood Venous blood specimen / Unknown Venipuncture / Unknown 04/19/2024 7:18 AM EST 04/19/2024 8:05 AM EST Prab[facility]LLERS LAB BLOOD ORDERABLES Final Resul t [facility] [address] [place] [address], * B-type natriuretic peptide (04/19/2024 7:18 AM EST) BNP <2 <=100 pcg/mL LAB CHEMISTRY METHOD 04/19/2024 8:44 AM EST [facility] Blood Venous blood specimen / Unknown Venipuncture / Unknown 04/19/2024 7:18 AM EST 04/19/2024 8:06 AM EST Prab[facility]LL[facility] LAB BLOOD ORDERABLES Final Resul t Performing Organization Address [facility]/ZIP Co de Phone Number [facility] [address] [place] [address], [place] [phone] * Magnesium (04/19/2024 7:18 AM EST) Magnesium 1.9 1.9 - 2.6 mg/dL LAB CHEMISTRY METHOD 04/19/2024 8:36 AM EST [facility] Blood Venous blood specimen / Unknown Venipuncture / Unknown 04/19/2024 7:18 AM EST 04/19/2024 8:06 AM EST Prab[facility] SELLERS LAB BLOOD ORDERABLES Final Resul t Performing Organization Address [facility] de Phone Number [facility] [address] [place] [address], [place] [phone] * Lipase (04/19/2024 7:18 AM EST) Lipase 36 13 - 75 unit/L LAB CHEMISTRY METHOD 04/19/2024 8:36 AM EST [facility] Blood Venous blood specimen / Unknown Venipuncture / Unknown 04/19/2024 7:18 AM EST 04/19/2024 8:06 AM EST Prab[facility] SELLERS LAB BLOOD ORDERABLES Final Resul t Performing Organization Address City/[facility]/ZIP Co de Phone Number [facility] [address] [place] [address], [place] [phone] * Comprehensive metabolic panel (04/19/2024 7:18 AM EST) Sodium 139 133 - 145 mmol/L LAB CHEMISTRY METHOD 04/19/2024 8:36 AM EST [facility] Potassium 3.7 3.5 - 5.5 mmol/L LAB CHEMISTRY METHOD 04/19/2024 8:[address] [facility] Chloride 109 96 - 110 mmol/L LAB CHEMISTRY METHOD 04/19/2024 8:[address] [facility] CO2 25 21 - 32 mmol/L LAB CHEMISTRY METHOD 04/19/2024 8:[address] [facility] Anion Gap 5 3 - 11 LAB CHEMISTRY METHOD 04/19/2024 8:[address] [facility] Glucose 88 70 - 100 mg/dL LAB CHEMISTRY METHOD 04/19/2024 8:[address] [facility] BUN 10 5 - 25 mg/dL LAB CHEMISTRY METHOD 04/19/2024 8:[address] [facility] Creatinine 0.60 0.50 - 1.10 mg/dL LAB CHEMISTRY METHOD 04/19/2024 8:[address] [facility] eGFR 122 >=60 mL/min/1. 73m2 LAB CHEMISTRY METHOD 04/19/2024 8:[address] [facility] Comment:Calculation based on the??Chronic Kidney Disease Epidemiology Collaboration (CKD-EPI) equation refit??without adjustment for race. BUN/Creatinine Ratio 16.7 LAB CHEMISTRY METHOD 04/19/2024 8:[address] [facility] Calcium 9.4 8.5 - 10.5 mg/dL LAB CHEMISTRY METHOD 04/19/2024 8:[address] [facility] AST (SGOT) 11 10 - 42 unit/L LAB CHEMISTRY METHOD 04/19/2024 8:[address] [facility] ALT (SGPT) 20 10 - 60 unit/L LAB CHEMISTRY METHOD 04/19/2024 8:[address] [facility] Alkaline Phosphatase 78 42 - 121 unit/L LAB CHEMISTRY METHOD 04/19/2024 8:[address] [facility] Total Protein 6.6 6.0 - 8.0 g/dL LAB CHEMISTRY METHOD 04/19/2024 8:[address] [facility] Albumin 3.8 3.2 - 5.0 g/dL LAB CHEMISTRY METHOD 04/19/2024 8:36 AM EST [facility] Total Bilirubin 0.6 0.0 - 1.4 mg/dL LAB CHEMISTRY METHOD 04/19/2024 8:36 AM EST [facility] Blood Venous blood specimen / Unknown Venipuncture / Unknown 04/19/2024 7:18 AM EST 04/19/2024 8:06 AM EST Prab[facility] SELLERS LAB BLOOD ORDERABLES Final Resul t Performing Organization Address City/[facility]/ZIP Co de Phone Number [facility] [address] [place] [address], [place] [phone] * Troponin I high sensitivity (04/19/2024 7:18 AM EST) Pathologist [facility] High Sensitivity Troponin I 4 <=54 ng/L LAB CHEMISTRY METHOD 04/19/2024 8:30 AM EST [facility] Blood Venous blood specimen / Unknown Venipuncture / Unknown 04/19/2024 7:18 AM EST 04/19/2024 8:05 AM EST Narrative [facility] - 04/19/2024 8:30 AM EST High levels of biotin in samples may falsely decrease hsTroponin values. ??Use caution when interpreting hsTroponin results in patients taking biotin who exhibit renal impairment (eGFR <60) or in patients taking more than 20 mg/day of biotin. Prabhu SELLERS LAB BLOOD ORDERABLES Final Resul t [facility] [address] [place] [address], [place] [phone] * ECG 12 lead (04/19/2024 6:46 AM EST) Ventricular Rate ECG 85 BPM GEMUSE Atrial Rate 85 BPM GEMUSE P-R Interval 138 ms GEMUSE QRS Duration 70 ms GEMUSE Q-T Interval 352 ms GEMUSE QTc 418 ms GEMUSE P Wave [place] 49 degrees GEMUSE R [place] 59 degrees GEMUSE T [place] 54 degrees GEMUSE ECG Interpretation Normal sinus [...] RN) documented in this encounter Care Teams Kerfer Machine Operator Relationship Specialty Start Date End Date Hailee Velazquez MD [address] [place] [id number] PCP - General Internal Medicine 04/19/24 documented as of this encounter
--- OUTSIDE RECORDS SUMMARY | 2024-05-10 12:47 | XMS_ITS ---
Author Organization [facility] Address [address] [place] [address] Phone Care Team Providers Care Ekg Technician Name Role Phone Hailee Velazquez MD Primary Care Provider +1- [phone] [facility] - Food Insecurity Status:Ongoing (Active) Start date:04/19/2024 Enrollment date:04/19/2024 Enrollment reason:Walk-in Related social drivers of health:Food Risk Related program episode:Community Health Worker Program (Closed) Overview Community Health Worker Program - Food Insecurity Service Episode Case Team Name Relationship Phone Stefan Dalal Community Health Worker(Respons ible Staff) Continued Care and Services Coordination
--- OUTSIDE RECORDS SUMMARY | 2024-05-10 12:48 | XMS_ITS | Encounter Summary ---
Author Organization [facility] [place] [address] Care Team Providers Care Punchboard Inserter Name Role Phone Hailee Velazquez MD Primary Care Provider +1- [phone] Encounter Details Date Type Department Care Team ([facility] st Contact Info) Description 04/26/2024 [facility] Community Health Worker Program [address] [place] [address] Stefan Dalal Social History Tobacco [...] care for your loved ones. For example, early childhood teacher assistant or elderly care for an older adult? [...] Outcome: CHW has referred patient to [facility], [facility] [employer], [facility], [facility], [facility], and [facility] Follow-Up: As Needed documented in this encounter Plan of Treatment Not on file documented as of this encounter Visit Diagnoses Not on filedocumented in this encounter Care Teams Punchboard Inserter Relationship Specialty Start Date End Date Hailee Velazquez MD [address] [place] [phone] PCP - General Internal Medicine 04/19/24 documented as of this encounter
--- OUTSIDE RECORDS SUMMARY | 2024-05-10 12:48 | XMS_ITS ---
Author Organization [facility] Address [address] [place] [address] Phone Care Team Providers Care Portal Architect Name Role Phone Hailee Velazquez MD Primary Care Provider +1- [phone] CHWP - Education Status:Closed (Closed) Start date:04/19/2024 Enrollment date:04/19/2024 Enrollment reason:Walk-in End date:04/26/2024 Close reason:Completed program Related program episode:Community Health Worker Program (Closed) Overview CHW Service Episode - Education supplied by a CHW. Continued Care and Services Coordination
--- OUTSIDE RECORDS SUMMARY | 2024-05-10 12:48 | XMS_ITS ---
Author Organization [facility] Address [address] [place] [address] Phone Care Team Providers Care Chinese Language Professor Name Role Phone Hailee Velazquez MD Primary Care Provider +1- [phone] Community Health Worker Program Status:Closed (Closed) Start date:04/19/2024 Enrollment date:04/19/2024 Enrollment reason:Walk-in End date:04/26/2024 Close reason:Completed program Related service episodes:CHWP - Education (Closed), CHWP - Food Insecurity (Active), CHWP - Transportation (Active), [facility] - Behavioral Health (Closed) Overview Community Health Worker Program Continued Care and Services Coordination
[2024-05-10 14:08] LABS: Influenza A PCR NEGATIVE (Negative); Influenza B PCR NEGATIVE (Negative); Resp Syncy Virus RNA Qual PCR NEGATIVE (Negative); SARS COV2 PCR INHOUSE NEGATIVE (Negative)
== END 2024-05-10 09:40 | disposition home or self-care (01) ==
LOC: HO.LAB 09:39
PROVIDERS: PCP Internal Medicine; Visit Provider Nurse Practitioner Family
DX: J06.9 Acute upper respiratory infection, unspecified (principal)
CPT/HCPCS: 0241U; 99212

== ENCOUNTER 2024-05-10 09:39 | Outpatient (AMB) | payer OTHER, SELFPAY ==
[2024-05-10 10:19] VITALS: BP 118/70; PULSE 93; O2SAT 95
--- NOTE | 2024-05-10 10:19 | AM.OFFWIN_ITS ---
Intake Vital Signs 05/10/24 10:19 Weight 124 lb BP 118/70 Blood Pressure Location Rt brachial Position Sitting Pulse 93 Pulse Source Pulse Oximeter Pulse Oximetry (%) 95 Oxygen Delivery Method Room Air Intake Visit Reasons: EP dizzy, lightheaded, pain in heart/chest/rib Intake Note: Patient here for left arm pain/numbness, chest tightness, dizzy, weird sensation behind ear, headache and blurred vision that started over the weekend. Patient Tobacco Use Status: Never used Tobacco Allergies ceftriaxone [CEFTRIAXONE] Allergy (Intermediate, Verified 05/10/24 10:22) HIVES amoxicillin [AMOXICILLIN] Allergy (Mild, Verified 05/10/24 10:22) RASH SEASONAL ALLERGIES Allergy (Unknown, Uncoded 05/10/24 10:22) UNKNOWN Do you need a note to return to daycare/school/sports/work: No HPI HPI Comments History of Present Illness Details 33 y/o female patient who presents to [facility] walk in clinic with multiple complains; Left Arm pain/numbness, Dizziness, chest tightness, headaches and vi brandon changes since the weekend. COUNTS INCLUDE 234 BEDS AT THE [facility] Medical History (Updated 05/10/24 @ 10:50 by Rhoda Barrera NP) Acute respiratory disease Depression Anxiety PTSD (post-traumatic stress disorder) Social History Alcohol intake: never Patient Tobacco Use Status: Never used Tobacco Substance Use Type: Marijuana Review of Systems Const All systems reviewed & are unremarkable except as noted in HPI and below Physical Exam Vital Signs: Last Vital Signs Pulse 93 05/10/24 10:19 BP 118/70 05/10/24 10:19 Pulse Ox 95 05/10/24 10:19 Oxygen Delivery Method Room Air 05/10/24 10:19 Const General: cooperative and no acute distress; No comfortable Orientation/consciousness: patient oriented x3 HEENT Head: Yes normocephalic Ears: external ears normal and TM abnormal with fluid behind the TM bilateral General nose exam: Abnormal mucous membranes and turbinates present boggy and Nasal discharge present Face and sinus: Yes sinuses nontender Mouth: moist mucous membranes Throat: Yes uvula midline Resp Effort & Inspection: normal respiratory effort and able to speak in complete sentences Auscultation: clear to auscultation bilaterally, no crackles, no rales, no rhonchi and no wheezes Neuro General: patient oriented x3 Assessment & Plan Assessment & Plan (1) Acute respiratory disease: Code(s): J06.9 - Acute upper respiratory infection, unspecified Plan: Ordered SARs Acetaminophen for pain aches. Rest and hydrate well Orders: Orders SARS-CoV2/FLU/RSV Today J06.9 - Acute upper respiratory infection, unspecified Medications: New acetaminophen 1,000 mg (2 x 500 mg) PO Q6H PRN 30 caps 0RF pain J06.9 - Acute upper respiratory infection, unspecified pseudoephedrine HCl ER (Sudafed 12 Hour) 120 mg PO Q12H 20 tabs 0RF J06.9 - Acute upper respiratory infection, unspecified dextromethorphan-guaifenesin 5-100 mg/5 mL (Robitussin Cough-Chest Congestion DM) 10 mL PO Q4-8H PRN 1,000 mL 0RF cough J06.9 - Acute upper respiratory infection, unspecified Coding Level of Care Code Est Pt Level 4 (07617) Diagnoses Acute respiratory disease J06.9 Time Spent (min) 20
--- OUTSIDE RECORDS SUMMARY | 2024-05-10 10:41 | XMS_ITS ---
Author Organization [facility] Address [address] [place] [address] Phone Care Team Providers Care Database Tester Name Role Phone Hailee Velazquez MD Primary Care Provider +1- [phone] [facility] - Behavioral Health Status:Closed (Closed) Start date:04/19/2024 Enrollment date:04/19/2024 Enrollment reason:Walk-in End date:04/26/2024 Close reason:Completed program Related program episode:Community Health Worker Program (Closed) Overview Behavior Health service of Community Health Worker Program Continued Care and Services Coordination
--- OUTSIDE RECORDS SUMMARY | 2024-05-10 10:41 | XMS_ITS ---
Author Organization [facility] Address [address] [place] [address] Phone Care Team Providers Care Sheet Rock Finisher Name Role Phone Hailee Velazquez MD Primary Care Provider +1- [phone] [facility] - Transportation Status:Ongoing (Active) Start date:04/19/2024 Enrollment date:04/19/2024 Enrollment reason:Walk-in Related social drivers of health:Transportation Related program episode:Community Health Worker Program (Closed) Overview Community Health Worker Program - Transportation Service Episode Case Team Name Relationship Phone Stefan Dalal Community Health Worker(Respons ible Staff) Continued Care and Services Coordination
--- OUTSIDE RECORDS SUMMARY | 2024-05-10 10:41 | XMS_ITS | Encounter Summary ---
[facility] [place] [address] Care Team Providers Care Debeader Name Role Phone Hailee Velazquez MD Primary Care Provider +1- [phone] Encounter Details Date Type Department Care Team (Late st Contact Info) Description 04/19/2024 Community Care Management [place] [facility] [address] [place] [address] Stefan Dalal Social History Tobacco [...] on filedocumented in this encounter Care Teams Debeader Relationship Specialty Start Date End Date Hailee Velazquez MD [address] [place] [address] PCP - General Internal Medicine 04/19/24 documented as of this encounter
--- OUTSIDE RECORDS SUMMARY | 2024-05-10 10:41 | XMS_ITS | Clinical Summary ---
Author Organization [facility] Address [address] [place] [address] Phone Care Team Providers Care Geology Technician Name Role Phone Hailee Velazquez MD Primary Care Provider +1- [phone] Allergies No known active allergies Medications torsemide (DEMADEX) 10 mg tablet Take 1 tablet (10 mg total) by mouth every 12 (twelve) hours if needed (pain). 30 each 5 025 Discontinued ketorolac (TORADOL) 10 mg tablet Take 1 tablet (10 mg total) by mouth every 6 (six) hours if needed for moderate pain for up to 5 days. 20 tablet 5 025 Encounters Date Type Department Care Team Description 04/26/2024 Telephone [facility] [address] [place] [address] Stefan Dalal 04/19/2024 6:35 AM EST - 04/19/2024 12:02 PM EST Emergency [facility] Emergency [address] [place] [phone] Kimani Vera MD Chest pain, unspecified type (Primary Dx); Palpitation Discharge Disposition: Home or Self Care 04/19/2024 Community Care Management [facility] [address] [place] [phone] Stefan Dalal from Last 3 Months Social [...] for your loved ones. For example, child and adolescent psychologist or elderly care for an older adult? [...] 2023 01/14/2021, 12/23/2020 Influenza Vaccine (#1) 2023 3, 03/19/2021, 12/13/2016 Social Influencers of Health Screening [...] Comments ECG ANNOTATED 04/20/2024 ECG ANNOTATED 04/20/2024 CARDIAC HOLTER MONITOR (3RD LIBERTARIAN REPORT GENERATED) Routine 04/19/2024 10:56 AM EST D-DIMER STAT 04/19/2024 8:44 AM EST TROPONIN [...] Onbase MD ECG ORDERABLES Final Result * CARDIAC HOLTER MONITOR (3RD LIBERTARIAN REPORT GENERATED) (04/19/2024 10:56 AM EST) Anatomical Region Laterality Modality Cardiac Diagnost ic Narrative 04/29/2024 5:41 PM EST 1. ??Monitoring was performed for 48 hours. ??Tracings of excellent technical quality were obtained. 2. ??There was an underlying sinus rhythm with a mean heart rate of 89 bpm. Heart rate varied from a minimum of 50 bpm to as high as 152 bpm. ??Sinus tachycardia occurred at various heart rates intermittently throughout the recording session. 3. ??There were total of 4 ventricular ectopic beats and 6 isolated supraventricular ectopic beats. ??There was no evidence of atrial fibrillation or ventricular tachycardia. 4. ??There were no pauses or disturbances in AV conduction. Kimani Vera MD CV CARDIAC SERVICES PROCEDU RES Final Result * Troponin I high sensitivity (04/19/2024 8:44 AM EST) Only the most recent of2 resultswithin the time period is included. High Sensitivity Troponin I 4 <=54 ng/L LAB CHEMISTRY METHOD 04/19/2024 9:20 AM EST [facility] Blood Venous blood specimen / Unknown Venipuncture / Unknown 04/19/2024 8:44 AM EST 04/19/2024 8:52 AM EST Narrative [facility] - 04/19/2024 9:20 AM EST High levels of biotin in samples may falsely decrease hsTroponin values. ??Use caution when interpreting hsTroponin results in patients taking biotin who exhibit renal impairment (eGFR <60) or in patients taking more than 20 mg/day of biotin. Prabhu SELLERS LAB BLOOD ORDERABLES Final Resul t Performing Organization Address [facility]/[employer] de Phone Number [facility] [address] [place] [address], * D-dimer, quantitative (04/19/2024 8:44 AM EST) Pathologist [facility] D-Dimer, Quant (D-DU) <150 <=230 ng/mL DDU LAB COAGULATION METHOD 04/19/2024 9:09 AM EST [facility] Blood Venous blood specimen / Unknown Venipuncture / Unknown 04/19/2024 8:44 AM EST 04/19/2024 8:52 AM EST Narrative [facility] - 04/19/2024 9:09 AM EST D-Dimer <230 ng/mL (D-Dimer units) is the threshold for exclusion of DVT/PE. D-Dimer may be elevated in: Critically ill, severely infected, trauma patients, DIC, acute CVA, acute IL, unstable angina, AF, old age, , and smoking. D-Dimer may be decreased with: Initiation of heparin therapy and oral anticoagulants. Kimani Vera MD LAB BLOOD ORDERABLES Final Result Performing Organization Address [facility] de Phone Number [facility] [address] [place] [address], * ECG 12 lead (04/19/2024 8:38 AM EST) Only the most recent of2 resultswithin the time period is included. Pathologist [facility] Ventricular Rate ECG 75 BPM GEMUSE Atrial Rate 75 BPM GEMUSE P-R Interval 134 ms GEMUSE QRS Duration 82 ms GEMUSE Q-T Interval 388 ms GEMUSE QTc 433 ms GEMUSE P Wave [place] 40 degrees GEMUSE R [place] 64 degrees GEMUSE T [place] 59 degrees GEMUSE ECG Interpretation Normal sinus [...] Signed Date: 04/19/2024 07:47 ET Workstation ID: [id number] Transcribed By: Self Edit Transcribed Date: 04/19/2024 [...] Signed Date: 04/19/2024 07:47 ET Workstation ID: [id number] Transcribed By: Self Edit Transcribed Date: 04/19/2024 07:45 ET Prabhu SELLERS IMG XR PROCEDURES Final Result * (ABNORMAL) CBC auto differential (04/19/2024 7:18 AM EST) WBC 6.5 4.8 - 10.8 K/mcL LAB HEMETOLOGY METHOD 04/19/2024 8:12 AM [facility] RBC 4.60 3.80 - 4.80 M/mcL LAB HEMETOLOGY METHOD 04/19/2024 8:12 AM [facility] Hemoglobin 12.4 11.5 - 16.0 g/dL LAB HEMETOLOGY METHOD 04/19/2024 8:12 AM [facility] Hematocrit 39.9 35.0 - 47.0 % LAB HEMETOLOGY METHOD 04/19/2024 8:12 AM [facility] MCV 87.3 79.0 - 98.0 FL LAB HEMETOLOGY METHOD 04/19/2024 8:12 AM [facility] MCH 27.1 27.0 - 32.0 pcg LAB HEMETOLOGY METHOD 04/19/2024 8:12 AM [facility] MCHC 31.1(L) 32.0 - 37.0 g/dL LAB HEMETOLOGY METHOD 04/19/2024 8:12 AM [facility] RDW 12.9 11.0 - 15.0 % LAB HEMETOLOGY METHOD 04/19/2024 8:12 AM [facility] Platelets 186 130 - 400 K/mcL LAB HEMETOLOGY METHOD 04/19/2024 8:12 AM [facility] MPV 11.8(H) 7.0 - 11.0 FL LAB HEMETOLOGY METHOD 04/19/2024 8:12 AM [facility] NRBC 0.0 <1.0 % LAB HEMETOLOGY METHOD 04/19/2024 8:12 AM [facility] NRBC Absolute 0.00 <0.10 K/mcL LAB HEMETOLOGY METHOD 04/19/2024 8:12 AM [facility] Neutrophils Relative 62.2 % LAB HEMETOLOGY METHOD 04/19/2024 8:12 AM [facility] Lymphocytes Relative 27.3 % LAB HEMETOLOGY METHOD 04/19/2024 8:12 AM [facility] Monocytes Relative 6.2 % LAB HEMETOLOGY METHOD 04/19/2024 8:12 AM [facility] Eosinophils Relative 3.3 % LAB HEMETOLOGY METHOD 04/19/2024 8:12 AM [facility] Basophils Relative 0.5 % LAB HEMETOLOGY METHOD 04/19/2024 8:12 AM [facility] Immature Granulocytes Relative 0.5 % LAB HEMETOLOGY METHOD 04/19/2024 8:12 AM [facility] Neutrophils Absolute 4.02 1.50 - 7.00 K/mcL LAB HEMETOLOGY METHOD 04/19/2024 8:12 AM [facility] Lymphocytes Absolute 1.76 1.00 - 5.00 K/mcL LAB HEMETOLOGY METHOD 04/19/2024 8:12 AM [facility] Monocytes Absolute 0.40 0.20 - 1.00 K/mcL LAB HEMETOLOGY METHOD 04/19/2024 8:12 AM [facility] Eosinophils Absolute 0.21 0.00 - 0.50 K/mcL LAB HEMETOLOGY METHOD 04/19/2024 8:12 AM EST [facility] Basophils Absolute 0.03 0.00 - 0.20 K[facility] LAB HEMETOLOGY METHOD 04/19/2024 8:12 AM EST [facility] Immature Granulocytes Absolute 0.03 0.00 - 0.03 K/[facility] LAB HEMETOLOGY METHOD 04/19/2024 8:12 AM EST [facility] Blood Venous blood specimen / Unknown Venipuncture / Unknown 04/19/2024 7:18 AM EST 04/19/2024 8:05 AM EST us Prabhu SELLERS LAB BLOOD ORDERABLES Final Resul t Performing Organization Address City/[facility]/ZIP Co de Phone Number [facility] [address] [place] [address], * B-type natriuretic peptide (04/19/2024 7:18 AM EST) BNP <2 <=100 pcg/mL LAB CHEMISTRY METHOD 04/19/2024 8:44 AM EST [facility] Blood Venous blood specimen / Unknown Venipuncture / Unknown 04/19/2024 7:18 AM EST 04/19/2024 8:06 AM EST us Prabhu SELLERS LAB BLOOD ORDERABLES Final Resul t [facility] [address] [place] [address], [place] [phone] * Magnesium (04/19/2024 7:18 AM EST) Magnesium 1.9 1.9 - 2.6 mg/dL LAB CHEMISTRY METHOD 04/19/2024 8:36 AM EST [facility] Blood Venous blood specimen / Unknown Venipuncture / Unknown 04/19/2024 7:18 AM EST 04/19/2024 8:06 AM EST us Prabhu SELLERS LAB BLOOD ORDERABLES Final Resul t Performing Organization Address City/[facility]/ZIP Co de Phone Number [facility] [address] [place] [address], [place] [phone] * Lipase (04/19/2024 7:18 AM EST) Lipase 36 13 - 75 unit/L LAB CHEMISTRY METHOD 04/19/2024 8:36 AM [facility] Blood Venous blood specimen / Unknown Venipuncture / Unknown 04/19/2024 7:18 AM EST 04/19/2024 8:06 AM EST us Prabhu SELLERS LAB BLOOD ORDERABLES Final Resul t Performing Organization Address [facility]/[employer] de Phone Number [facility] [address] [place] [address], [place] [phone] * Comprehensive metabolic panel (04/19/2024 7:18 AM EST) Pathologist [facility] Sodium 139 133 - 145 mmol/L LAB CHEMISTRY METHOD 04/19/2024 8:36 AM [facility] Potassium 3.7 3.5 - 5.5 mmol/L LAB CHEMISTRY METHOD 04/19/2024 8:36 AM [facility] Chloride 109 96 - 110 mmol/L LAB CHEMISTRY METHOD 04/19/2024 8:36 AM [facility] CO2 25 21 - 32 mmol/L LAB CHEMISTRY METHOD 04/19/2024 8:36 AM [facility] Anion Gap 5 3 - 11 LAB CHEMISTRY METHOD 04/19/2024 8:36 AM [facility] Glucose 88 70 - 100 mg/dL LAB CHEMISTRY METHOD 04/19/2024 8:36 AM [facility] BUN 10 5 - 25 mg/dL LAB CHEMISTRY METHOD 04/19/2024 8:36 AM [facility] Creatinine 0.60 0.50 - 1.10 mg/dL LAB CHEMISTRY METHOD 04/19/2024 8:36 AM [facility] eGFR 122 >=60 mL/min/1. 73m2 LAB CHEMISTRY METHOD 04/19/2024 8:36 AM [facility] Comment:Calculation based on the??Chronic Kidney Disease Epidemiology Collaboration (CKD-EPI) equation refit??without adjustment for race. BUN/Creatinine Ratio 16.7 LAB CHEMISTRY METHOD 04/19/2024 8:36 AM [facility] Calcium 9.4 8.5 - 10.5 mg/dL LAB CHEMISTRY METHOD 04/19/2024 8:36 AM [facility] AST (SGOT) 11 10 - 42 unit/L LAB CHEMISTRY METHOD 04/19/2024 8:36 AM [facility] ALT (SGPT) 20 10 - 60 unit/L LAB CHEMISTRY METHOD 04/19/2024 8:36 AM [facility] Alkaline Phosphatase 78 42 - 121 unit/L LAB CHEMISTRY METHOD 04/19/2024 8:36 AM [facility] Total Protein 6.6 6.0 - 8.0 g/dL LAB CHEMISTRY METHOD 04/19/2024 8:36 AM [facility] Albumin 3.8 3.2 - 5.0 g/dL LAB CHEMISTRY METHOD 04/19/2024 8:36 AM [facility] Total Bilirubin 0.6 0.0 - 1.4 mg/dL LAB CHEMISTRY METHOD 04/19/2024 8:36 AM [facility] Blood Venous blood specimen / Unknown Venipuncture / Unknown 04/19/2024 7:18 AM EST 04/19/2024 8:06 AM EST us Prabhu SELLERS LAB BLOOD ORDERABLES Final Resul t [facility] [address] [place] [address], [place] [phone] from Last 3 Months Insurance [employer] Member Subscriber Plan / Payer (Ef fective 2024-Present) Name:Linda Oliveros Relation to Subscriber:Self Name:Linda Oliveros Payer ID:[id number] Group ID:Not on file Type:Not on file Address: [facility] [address] [address] Care Teams Geology Technician Relationship Specialty Start Date End Date Hailee Velazquez MD [address] [place] [phone] PCP - General Internal Medicine 04/19/24
--- OUTSIDE RECORDS SUMMARY | 2024-05-10 10:41 | XMS_ITS ---
Author Organization [facility] Address [address] [place] [address] Phone Care Team Providers Care Automat Car Attendant Name Role Phone Hailee Velazquez MD Primary Care Provider +1- [phone] [facility] - Food Insecurity Status:Ongoing (Active) Start date:04/19/2024 Enrollment date:04/19/2024 Enrollment reason:Walk-in Related social drivers of health:Food Risk Related program episode:Community Health Worker Program (Closed) Overview Community Health Worker Program - Food Insecurity Service Episode Case Team Name Relationship Phone Stefan Dalal Community Health Worker(Respons ible Staff) Continued Care and Services Coordination
--- OUTSIDE RECORDS SUMMARY | 2024-05-10 10:41 | XMS_ITS | Encounter Summary ---
Author Organization [employer] Address [address] [place] [address] Care Team Providers Care Court Bailiff Or Sheriff Name Role Phone Hailee Vealzquez MD Primary Care Provider +1- [phone] Reason for Visit * Reason Comments Chest Pain Encounter Details Date Type Department Care Team (Late st Contact Info) Description 04/19/2024 6:35 AM EST - 04/19/2024 12:02 PM [facility] Emergency Emergency [address] [place] [id number] Kimani Vera MD [address] [address] Chest pain, unspecified type (Primary Dx); Palpitation [...] care for your loved ones. For example, school child care attendant or elderly care for an older [...] through Care Everywhere. * Chest Pain: Musculoskeletal (Danish) * Palpitations (Danish) * Holter Monitoring (Danish) documented in this encounter Medications at Time [...] Procedure Abnormality Status --------- ------ CBC auto differential[[id number]] Abnormal Final result Please view results for [...] Signed Date: 04/19/2024 07:47 ET Workstation ID: [id number] Transcribed By: Self Edit Transcribed Date: 04/19/2024 [...] on file documented as of this encounter Procedures Procedure Name Priority Date/Time Associated Diagnosis Comments ECG ANNOTATED 04/20/2024 ECG ANNOTATED 04/20/2024 CARDIAC HOLTER MONITOR (3RD DEMOCRAT REPORT GENERATED) Routine 04/19/2024 10:56 AM EST TROPONIN I HIGH SENSITIVITY STAT [...] in this encounter Results * ECG-Annotated (04/20/2024) Provider Onbase MD ECG ORDERABLES Final Result * ECG-Annotated (04/20/2024) Provider Onbase MD ECG ORDERABLES Final Result * CARDIAC HOLTER MONITOR (3RD DEMOCRAT REPORT GENERATED) (04/19/2024 10:56 AM EST) Anatomical [...] CARDIAC SERVICES PROCEDU RES Final Result * D-dimer, quantitative (04/19/2024 8:44 AM EST) [facility] D-Dimer, Quant (D-DU) <150 <=230 ng/mL DDU LAB COAGULATION METHOD 04/19/2024 9:09 AM EST [facility] Blood Venous blood specimen / Unknown Venipuncture / Unknown 04/19/2024 8:44 AM EST 04/19/2024 8:52 AM EST [facility] LAB - 04/19/2024 9:09 AM EST D-Dimer <230 ng/mL (D-Dimer units) is the threshold for exclusion of DVT/PE. D-Dimer may be elevated in: Critically ill, severely infected, trauma patients, DIC, acute CVA, acute IN, unstable angina, AF, old age, , and smoking. D-Dimer may be decreased with: Initiation of heparin therapy and oral anticoagulants. Kimani Vera MD LAB BLOOD ORDERABLES Final Result Performing Organization Address City/State/[facility] Co de Phone Number [facility] [address] [place] [address], [place] [phone] * Troponin I high sensitivity (04/19/2024 8:44 AM EST) [facility] High Sensitivity Troponin I 4 <=54 ng/L LAB CHEMISTRY METHOD 04/19/2024 9:20 AM EST [facility] Blood Venous blood specimen / Unknown Venipuncture / Unknown 04/19/2024 8:44 AM EST 04/19/2024 8:52 AM EST [facility] - 04/19/2024 9:20 AM EST High levels of biotin in samples may falsely decrease hsTroponin values. ??Use caution when interpreting hsTroponin results in patients taking biotin who exhibit renal impairment (eGFR <60) or in patients taking more than 20 mg/day of biotin. Prabhu SELLERS LAB BLOOD ORDERABLES Final Resul t Performing Organization Address City/State/[facility] Co de Phone Number [facility] [place] [facility] [address] [place] [address], * ECG 12 lead (04/19/2024 8:38 AM EST) Ventricular Rate ECG 75 BPM GEMUSE Atrial Rate 75 BPM GEMUSE P-R Interval 134 ms GEMUSE QRS Duration 82 ms GEMUSE Q-T Interval 388 ms GEMUSE QTc 433 ms GEMUSE P Wave [place] 40 degrees GEMUSE R [place] 64 degrees GEMUSE T [place] 59 degrees GEMUSE ECG Interpretation Normal sinus rhythm Normal ECG When compared with ECG of 19-APR-2024 06:46, (unconfirmed) No significant change was found Confirmed by Vanessa PARISH JAMES ([id number]) on 04/19/2024 6:31:57 PM GEMUSE 04/19/2024 8:38 AM EST 04/19/2024 6:31 PM EST Prabhu SELLERS ECG ORDERABLES Final Result Performing Organization Address [facility] Co de Phone Number GEMUSE * XR [...] Signed Date: 04/19/2024 07:47 ET Workstation ID: [id number] Transcribed By: Self Edit Transcribed Date: 04/19/2024 [...] Signed Date: 04/19/2024 07:47 ET Workstation ID: [id number] Transcribed By: Self Edit Transcribed Date: 04/19/2024 07:45 ET Prabhu SELLERS IMG XR PROCEDURES Final Result * (ABNORMAL) CBC auto differential (04/19/2024 7:18 AM EST) Pathologist [facility] WBC 6.5 4.8 - 10.8 K/mcL LAB HEMETOLOGY METHOD 04/19/2024 8:12 AM [facility] RBC 4.60 3.80 - 4.80 M/mcL LAB HEMETOLOGY METHOD 04/19/2024 8:12 AM [facility] Hemoglobin 12.4 11.5 - 16.0 g/dL LAB HEMETOLOGY METHOD 04/19/2024 8:12 AM [facility] Hematocrit 39.9 35.0 - 47.0 % LAB HEMETOLOGY METHOD 04/19/2024 8:12 AM [facility] MCV 87.3 79.0 - 98.0 FL LAB HEMETOLOGY METHOD 04/19/2024 8:12 AM [facility] MCH 27.1 27.0 - 32.0 pcg LAB HEMETOLOGY METHOD 04/19/2024 8:12 AM [facility] MCHC 31.1(L) 32.0 - 37.0 g/dL LAB HEMETOLOGY METHOD 04/19/2024 8:12 AM [facility] RDW 12.9 11.0 - 15.0 % LAB HEMETOLOGY METHOD 04/19/2024 8:12 AM [facility] Platelets 186 130 - 400 K/mcL LAB HEMETOLOGY METHOD 04/19/2024 8:12 AM [facility] MPV 11.8(H) 7.0 - 11.0 FL LAB HEMETOLOGY METHOD 04/19/2024 8:12 AM [facility] NRBC 0.0 <1.0 % LAB HEMETOLOGY METHOD 04/19/2024 8:12 AM [facility] NRBC Absolute 0.00 <0.10 K/mcL LAB HEMETOLOGY METHOD 04/19/2024 8:12 AM [facility] Neutrophils Relative 62.2 % LAB HEMETOLOGY METHOD 04/19/2024 8:12 AM [facility] Lymphocytes Relative 27.3 % LAB HEMETOLOGY METHOD 04/19/2024 8:12 AM [facility] Monocytes Relative 6.2 % LAB HEMETOLOGY METHOD 04/19/2024 8:12 AM [facility] Eosinophils Relative 3.3 % LAB HEMETOLOGY METHOD 04/19/2024 8:12 AM [facility] Basophils Relative 0.5 % LAB HEMETOLOGY METHOD 04/19/2024 8:12 AM [facility] Immature Granulocytes Relative 0.5 % LAB HEMETOLOGY METHOD 04/19/2024 8:12 AM EST [facility] Neutrophils Absolute 4.02 1.50 - 7.00 K/mcL LAB HEMETOLOGY METHOD 04/19/2024 8:12 AM EST [facility] Lymphocytes Absolute 1.76 1.00 - 5.00 K/mcL LAB HEMETOLOGY METHOD 04/19/2024 8:12 AM EST [facility] Monocytes Absolute 0.40 0.20 - 1.00 K/[facility] LAB HEMETOLOGY METHOD 04/19/2024 8:12 AM EST [facility] Eosinophils Absolute 0.21 0.00 - 0.50 K/mcL LAB HEMETOLOGY METHOD 04/19/2024 8:12 AM EST [facility] Basophils Absolute 0.03 0.00 - 0.20 K/mcL LAB HEMETOLOGY METHOD 04/19/2024 8:12 AM EST [facility] Immature Granulocytes Absolute 0.03 0.00 - 0.03 K/[facility] LAB HEMETOLOGY METHOD 04/19/2024 8:12 AM EST [facility] Blood Venous blood specimen / Unknown Venipuncture / Unknown 04/19/2024 7:18 AM EST 04/19/2024 8:05 AM EST Prabhu SELLERS LAB BLOOD ORDERABLES Final Resul t [facility] [address] [place] [address], * B-type natriuretic peptide (04/19/2024 7:18 AM EST) BNP <2 <=100 pcg/mL LAB CHEMISTRY METHOD 04/19/2024 8:44 AM EST [facility] Blood Venous blood specimen / Unknown Venipuncture / Unknown 04/19/2024 7:18 AM EST 04/19/2024 8:06 AM EST Prabhu SELLERS LAB BLOOD ORDERABLES Final Resul t Performing Organization Address [facility]/ZIP Co de Phone Number [facility] [address] [place] [address], [place] [phone] * Magnesium (04/19/2024 7:18 AM EST) Magnesium 1.9 1.9 - 2.6 mg/dL LAB CHEMISTRY METHOD 04/19/2024 8:36 AM EST [facility] Blood Venous blood specimen / Unknown Venipuncture / Unknown 04/19/2024 7:18 AM EST 04/19/2024 8:06 AM EST Prabhu SELLERS LAB BLOOD ORDERABLES Final Resul t Performing Organization Address [facility] de Phone Number [facility] [address] [place] [address], [place] [phone] * Lipase (04/19/2024 7:18 AM EST) Lipase 36 13 - 75 unit/L LAB CHEMISTRY METHOD 04/19/2024 8:36 AM EST [facility] Blood Venous blood specimen / Unknown Venipuncture / Unknown 04/19/2024 7:18 AM EST 04/19/2024 8:06 AM EST Prabhu SELLERS LAB BLOOD ORDERABLES Final Resul t Performing Organization Address City/[facility]/ZIP Co de Phone Number [facility] [address] [place] [address], [place] [phone] * Comprehensive metabolic panel (04/19/2024 7:18 AM EST) Sodium 139 133 - 145 mmol/L LAB CHEMISTRY METHOD 04/19/2024 8:36 AM EST [facility] Potassium 3.7 3.5 - 5.5 mmol/L LAB CHEMISTRY METHOD 04/19/2024 8:36 AM [facility] Chloride 109 96 - 110 mmol/L LAB CHEMISTRY METHOD 04/19/2024 8:36 AM [facility] CO2 25 21 - 32 mmol/L LAB CHEMISTRY METHOD 04/19/2024 8:36 AM [facility] Anion Gap 5 3 - 11 LAB CHEMISTRY METHOD 04/19/2024 8:36 AM [facility] Glucose 88 70 - 100 mg/dL LAB CHEMISTRY METHOD 04/19/2024 8:36 AM [facility] BUN 10 5 - 25 mg/dL LAB CHEMISTRY METHOD 04/19/2024 8:36 AM [facility] Creatinine 0.60 0.50 - 1.10 mg/dL LAB CHEMISTRY METHOD 04/19/2024 8:36 AM [facility] eGFR 122 >=60 mL/min/1. 73m2 LAB CHEMISTRY METHOD 04/19/2024 8:36 AM [facility] Comment:Calculation based on the??Chronic Kidney Disease Epidemiology Collaboration (CKD-EPI) equation refit??without adjustment for race. BUN/Creatinine Ratio 16.7 LAB CHEMISTRY METHOD 04/19/2024 8:36 AM [facility] Calcium 9.4 8.5 - 10.5 mg/dL LAB CHEMISTRY METHOD 04/19/2024 8:36 AM [facility] AST (SGOT) 11 10 - 42 unit/L LAB CHEMISTRY METHOD 04/19/2024 8:36 AM [facility] ALT (SGPT) 20 10 - 60 unit/L LAB CHEMISTRY METHOD 04/19/2024 8:36 AM [facility] Alkaline Phosphatase 78 42 - 121 unit/L LAB CHEMISTRY METHOD 04/19/2024 8:36 AM [facility] Total Protein 6.6 6.0 - 8.0 g/dL LAB CHEMISTRY METHOD 04/19/2024 8:36 AM [facility] Albumin 3.8 3.2 - 5.0 g/dL LAB CHEMISTRY METHOD 04/19/2024 8:36 AM EST [facility] Total Bilirubin 0.6 0.0 - 1.4 mg/dL LAB CHEMISTRY METHOD 04/19/2024 8:36 AM EST [facility] Blood Venous blood specimen / Unknown Venipuncture / Unknown 04/19/2024 7:18 AM EST 04/19/2024 8:06 AM EST Prabhu SELLERS LAB BLOOD ORDERABLES Final Resul t Performing Organization Address City/[facility]/ZIP Co de Phone Number [facility] [address] [place] [address], [place] [phone] * Troponin I high sensitivity (04/19/2024 7:18 AM EST) Pathologist [facility] High Sensitivity Troponin I 4 <=54 ng/L LAB CHEMISTRY METHOD 04/19/2024 8:30 AM EST [facility] Blood Venous blood specimen / Unknown Venipuncture / Unknown 04/19/2024 7:18 AM EST 04/19/2024 8:05 AM EST Narrative [facility] - 04/19/2024 8:30 AM EST High levels of biotin in samples may falsely decrease hsTroponin values. ??Use caution when interpreting hsTroponin results in patients taking biotin who exhibit renal impairment (eGFR <60) or in patients taking more than 20 mg/day of biotin. Prabhu SELLERS LAB BLOOD ORDERABLES Final Resul t [facility] [address] [place] [address], [place] [phone] * ECG 12 lead (04/19/2024 6:46 AM EST) Ventricular Rate ECG 85 BPM GEMUSE Atrial Rate 85 BPM GEMUSE P-R Interval 138 ms GEMUSE QRS Duration 70 ms GEMUSE Q-T Interval 352 ms GEMUSE QTc 418 ms GEMUSE P Wave [place] 49 degrees GEMUSE R [place] 59 degrees GEMUSE T [place] 54 degrees GEMUSE ECG Interpretation Normal sinus rhythm Nonspecific T wave abnormality Abnormal ECG No previous ECGs available Confirmed by Vanessa PARISH JAMES ([id number]) on 04/19/2024 6:30:47 PM GEMUSE 04/19/2024 6:46 AM EST 04/19/2024 6:30 PM EST us Prabhu SELLERS ECG ORDERABLES Final Result GEMUSE documented in this encounter Visit Diagnoses [...] RN) documented in this encounter Care Teams Court Bailiff Or Sheriff Relationship Specialty Start Date End Date Hailee Velazquez MD [address] [place] [phone] PCP - General Internal Medicine 04/19/24 documented as of this encounter
--- OUTSIDE RECORDS SUMMARY | 2024-05-10 10:42 | XMS_ITS ---
Author Organization [facility] Address [address] [place] [address] Phone Care Team Providers Care Mathematics Academic Chair Name Role Phone Hailee Velazquez MD Primary Care Provider +1- [phone] Community Health Worker Program Status:Closed (Closed) Start date:04/19/2024 Enrollment date:04/19/2024 Enrollment reason:Walk-in End date:04/26/2024 Close reason:Completed program Related service episodes:[facility] - Education (Closed), [facility] - Food Insecurity (Active), [facility] - Transportation (Active), [facility] - Behavioral Health (Closed) Overview Community Health Worker Program Continued Care and Services Coordination
--- OUTSIDE RECORDS SUMMARY | 2024-05-10 10:42 | XMS_ITS ---
Author Organization [facility] Address [address] [place] [address] Phone Care Team Providers Care Open Hearth Laborer Name Role Phone Hailee Velazquez MD Primary Care Provider +1- [phone] [facility] - Education Status:Closed (Closed) Start date:04/19/2024 Enrollment date:04/19/2024 Enrollment reason:Walk-in End date:04/26/2024 Close reason:Completed program Related program episode:Community Health Worker Program (Closed) Overview CHW Service Episode - Education supplied by a CHW. Continued Care and Services Coordination
--- OUTSIDE RECORDS SUMMARY | 2024-05-10 10:42 | XMS_ITS | Encounter Summary ---
Author Organization [facility] [place] [address] Care Team Providers Care Tableau Analyst Name Role Phone Hailee Velazquez MD Primary Care Provider +1- [phone] Encounter Details Date Type Department Care Team ([facility] st Contact Info) Description 04/26/2024 [facility] Community Health Worker Program [address] [place] [address] Stefan Dalal Social History Tobacco [...] for your loved ones. For example, child specialist or elderly care for an older adult? [...] encounter Progress Notes * Stefan Dalal - 04/26/2024 12:00 PM EST *Telephone Encounter* Reason For Encounter: CHW addressed patient for resources needed at this time. Outcome: CHW has referred patient to [facility], [facility] [employer], [facility], [facility], [facility], and [facility] Follow-Up: As Needed documented in this encounter Plan of Treatment Not on file documented as of this encounter Visit Diagnoses Not on filedocumented in this encounter Care Teams Tableau Analyst Relationship Specialty Start Date End Date Hailee Velazquez MD [address] [place] [phone] PCP - General Internal Medicine 04/19/24 documented as of this encounter
== END 2024-05-10 11:10 | disposition home or self-care (01) ==
PROVIDERS: PCP Internal Medicine; Visit Provider Nurse Practitioner Family
DX: J06.9 Acute upper respiratory infection, unspecified (principal)

== ENCOUNTER 2024-06-18 08:45 | Outpatient (REF) | payer OTHER, SELFPAY ==
[2024-06-18 11:47] LABS: Influenza A PCR NEGATIVE (Negative); Influenza B PCR NEGATIVE (Negative); Resp Syncy Virus RNA Qual PCR NEGATIVE (Negative); SARS COV2 PCR INHOUSE NEGATIVE (Negative)
--- OUTSIDE RECORDS SUMMARY | 2024-06-18 12:03 | XMS_ITS ---
Author Organization [facility] Address [address] [place] [phone] Phone Care Team Providers Care Business Manager [employer] Name Role Phone Hailee Velazquez MD Primary Care Provider +1- [phone] [facility] - Food Insecurity Status:Ongoing (Active) Start date:04/19/2024 Enrollment date:04/19/2024 Enrollment reason:Walk-in Related social drivers of health:Food Risk Related program episode:Community Health Worker Program (Closed) Overview Community Health Worker Program - Food Insecurity Service Episode Case Team Name Relationship Phone Stefan Dalal Community Health Worker(Respons ible Staff) Continued Care and Services Coordination
--- OUTSIDE RECORDS SUMMARY | 2024-06-18 12:03 | XMS_ITS ---
Author Organization [facility] Address [address] [place] [phone] Phone Care Team Providers Care Marketing Compliance Manager Name Role Phone Hailee Velazquez MD Primary Care Provider +1- [phone] [facility] - Transportation Status:Ongoing (Active) Start date:04/19/2024 Enrollment date:04/19/2024 Enrollment reason:Walk-in Related social drivers of health:Transportation Related program episode:Community Health Worker Program (Closed) Overview Community Health Worker Program - Transportation Service Episode Case Team Name Relationship Phone Stefan Dalal Community Health Worker(Respons ible Staff) Continued Care and Services Coordination
--- OUTSIDE RECORDS SUMMARY | 2024-06-18 12:04 | XMS_ITS | Clinical Summary ---
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 Name Role Phone Hailee Velazquez MD Primary Care Provider [phone] Allergies Active Allergy Reactions Criticality Noted Date [...] Noted Date Diagnosed Date Seizure (CMS/HCC V24, [facility] [place] 05/18/2024 Encounters Date Type Department Care Team Description 05/18/2024 1:30 PM EDT - 05/20/2024 6:23 PM EDT Emergency [facility] [address] [place] [phone] Kimani Vera MD Ishtiaq, Rizwan, MD Bell, Alistair A, MD Other migraine without status migrainosus, not intractable (Primary Dx); Absence seizure ([facility] V24, [facility] V28); Atypical seizure ([facility] V24, [facility] V28) Discharge Disposition: Home or Self Care 04/26/2024 Telephone [facility] [address] [place] [phone] Stefan Dalal 04/19/2024 6:35 AM EST - 04/19/2024 12:02 PM EST Emergency [facility] Emergency [address] [place] [phone] Kimani Vera MD Chest pain, unspecified type (Primary Dx); Palpitation Discharge Disposition: Home or Self Care 04/19/2024 Community Care Management [facility] [address] [place] [phone] Stefan Dalal from Last 3 Months Medical [...] for your loved ones. For example, child support officer or elderly care for an older adult? 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 on [...] Hemoglobin and hematocrit (05/20/2024 1:33 PM EDT) [facility] Hemoglobin 12.4 11.5 - 16.0 g/dL LAB HEMETOLOGY METHOD 05/20/2024 2:01 PM EDT [facility] Hematocrit 39.6 35.0 - 47.0 % LAB HEMETOLOGY METHOD 05/20/2024 2:01 PM EDT [facility] Blood Venous blood specimen / Unknown Venipuncture / Unknown 05/20/2024 1:33 PM EDT 05/20/2024 1:56 PM EDT Mick Ramirez MD LAB BLOOD ORDERABLES Final Re sult [facility] [address] [place] [address], * Troponin I high sensitivity (05/20/2024 6:42 AM EDT) Only the most recent of3 resultswithin the time period is included. [facility] High Sensitivity Troponin I 4 <=54 ng/L LAB CHEMISTRY METHOD 05/20/2024 7:33 AM EDT [facility] Blood Venous blood specimen / Unknown Venipuncture / Unknown 05/20/2024 6:42 AM EDT 05/20/2024 6:56 AM EDT Narrative [facility] - 05/20/2024 7:33 AM EDT High levels of biotin in samples may falsely decrease hsTroponin values. ??Use caution when interpreting hsTroponin results in patients taking biotin who exhibit renal impairment (eGFR <60) or in patients taking more than 20 mg/day of biotin. Magdy SELLERS LAB BLOOD ORDERABLES Final Res ult [facility] [address] [place] [address], [place] [phone] * POCT Glucose, blood (05/20/2024 4:03 AM EDT) [facility] Glucose POCT 91 70 - 100 mg/dL 05/20/2024 4:04 AM EDT [facility] Blood Capillary blood specimen / Unknown 05/20/2024 4:03 AM EDT 05/20/2024 4:05 AM EDT Mick Ramirez MD LAB POINT OF CARE TE ST DOCKED DEVICE UNSOLICITED RESULTS Final Result Performing Organization Address City/[facility]/ZIP Co de Phone Number [facility] [address] [place] [address], [place] [phone] * ECG 12 lead (05/20/2024 3:18 AM EDT) Only the most recent of5 resultswithin the time period is included. [facility] Signature Ventricular Rate ECG 67 BPM GEMUSE Atrial Rate 67 BPM GEMUSE P-R Interval 138 ms GEMUSE QRS Duration 82 ms GEMUSE Q-T Interval 412 ms GEMUSE QTc 435 ms GEMUSE P Wave Christopher 25 degrees GEMUSE R Christopher 59 degrees GEMUSE T Christopher 68 degrees GEMUSE ECG Interpretation Normal sinus [...] Mick Ramirez MD, 4 mg at 05/19/24 1082 Recording Techniques A digital video EEG was [...] a normal routine EEG recording in the sciob-[id number]-[id number] states. ??There were no seizures, periodic patterns, [...] Signed Date: 05/19/2024 15:09 ET Workstation ID: [id number] Transcribed By: Self Edit Transcribed Date: 05/19/2024 [...] Signed Date: 05/19/2024 15:09 ET Workstation ID: [id number] Transcribed By: Self Edit Transcribed Date: 05/19/2024 15:04 ET Mick Ramirez MD IMG MRI PROCEDURES Final Resu lt * ECG-Annotated (05/19/2024) Only the most recent of3 resultswithin the time period is included. us Provider Onbase ECG ORDERABLES Final Result * (ABNORMAL) Drug abuse screen 8a panel, urine (05/18/2024 11:36 PM EDT) Amphetamine Screen, Ur Negative Negative LAB CHEMISTRY METHOD 5 12:44 AM EDT [facility] Comment:Certain OTC medicati ons containing ephedrine, phenylephrine, pseudoephedrine and phenylpropanolamine can cause false positive results. Barbiturate Screen, Ur Positive(A ) Negative LAB CHEMISTRY METHOD 5 12:44 AM EDT [facility] Benzodiazepine Screen, Ur Negative Negative LAB CHEMISTRY METHOD 5 12:44 AM [facility] Cocaine Screen, Ur Negative Negative LAB CHEMISTRY METHOD 5 12:44 AM T [facility] Opiate Screen, Ur Negative Negative LAB CHEMISTRY METHOD 5 12:44 AM EDT [facility] Cannabinoid (THC) Screen, Ur Positive(A ) Negative LAB CHEMISTRY METHOD 5 12:44 AM EDT [facility] Comment:Specimens from patie nts taking pantoprazole sodium (Protonix) have been shown to produce false positive results. Oxycodone Screen, Ur Negative Negative LAB CHEMISTRY METHOD 5 12:44 AM EDT [facility] Fentanyl, Ur Negative Negative LAB CHEMISTRY METHOD 5 12:44 AM EDT [facility] Urine Urine specimen obtained by clean catch procedure / Unknown Non-blood Collection / Unknown 05/18/2024 11:36 PM EDT 05/18/2024 11:41 PM EDT Narrative [facility] - 05/19/2024 12:44 AM [...] Vera MD LAB URINE ORDERABLES Final Result [facility] [address] [place] [address], * Yellow urine no additive (05/18/2024 11:36 PM EDT) Extra Tube Hold for add-ons. 05/19/2024 1:02 AM EDT [facility] Comment:Auto resulted. Urine Urine specimen obtained by clean catch procedure / Unknown Non-blood Collection / Unknown 05/18/2024 11:36 PM EDT 05/18/2024 11:41 PM EDT us Alexandr Mayers MD LAB URINE ORDERABLES Final Res ult [facility] [address] [place] [address], [place] [phone] * Urinalysis with reflex microscopic (05/18/2024 3:15 PM EDT) Specific [place] Urine 1.029 1.003 - 1.030 LAB URINALYSIS - AUTOMATED METHOD 05/18/2024 4:03 PM [facility] pH, Urine 6.0 5.0 - 8.0 pH LAB URINALYSIS - AUTOMATED METHOD 05/18/2024 4:03 PM [facility] Leukocytes, Urine Negative Negative LAB URINALYSIS - AUTOMATED METHOD 05/18/2024 4:03 PM [facility] Nitrite, Urine Negative Negative LAB URINALYSIS - AUTOMATED METHOD 05/18/2024 4:03 PM [facility] Protein, Urine Negative <=Trace mg/dL LAB URINALYSIS - AUTOMATED METHOD 05/18/2024 4:03 PM [facility] Glucose, Urine Negative Negative mg/dL LAB URINALYSIS - AUTOMATED METHOD 05/18/2024 4:03 PM [facility] Ketones, Urine Negative Negative mg/dL LAB URINALYSIS - AUTOMATED METHOD 05/18/2024 4:03 PM [facility] Urobilinogen, Urine 0.2 0.2 - 1.0 mg/dL LAB URINALYSIS - AUTOMATED METHOD 05/18/2024 4:03 PM [facility] Bilirubin, Urine Negative Negative LAB URINALYSIS - AUTOMATED METHOD 05/18/2024 4:03 PM EDT [facility] Blood, Urine Negative Negative LAB URINALYSIS - AUTOMATED METHOD 05/18/2024 4:03 PM EDT [facility] Urine Urine specimen obtained by clean catch procedure / Unknown Non-blood Collection / Unknown 05/18/2024 3:15 PM EDT 05/18/2024 3:39 PM EDT Kimani Vera MD LAB URINE ORDERABLES Final Result [facility] [address] [place] [address], [place] [phone] * Chlamydia trachomatis and Neisseria gonorrhoeae molecular study (05/18/2024 3:15 PM EDT) Neisseria gonorrhoeae PCR Negative Negative LAB MOLECULAR DIAGNOSTICS METHOD 05/19/2024 9:41 AM EDT [facility] Chlamydia trachomatis PCR Negative Negative LAB MOLECULAR DIAGNOSTICS METHOD 05/19/2024 9:41 AM EDT [facility] Swab Urine specimen obtained by clean catch procedure / Unknown Non-blood Collection / Unknown 05/18/2024 3:15 PM EDT 05/18/2024 3:38 PM EDT Kimani Vera MD LAB MICROBIOLOGY - GENERAL ORDERABLES Final Result [facility] [address] [place] [address], [place] [phone] * CT Head wo Contrast (05/18/2024 3:10 PM EDT) Anatomical Region Laterality Modality Head and Neck Computed Tomogra phy 05/18/2024 3:21 PM EDT Impressions 05/18/2024 3:22 PM EDT NO ACUTE INTRACRANIAL ABNORMALITY. -------- FINAL REPORT -------- Dictated By: Bulmaro Harper Dictated Date: 05/18/2024 15:21 ET Assigned Physician: Bulmaro Harper Reviewed and Electronically Signed By: Bulmaro Harper Signed Date: 05/18/2024 15:22 ET Workstation ID: [id number] Transcribed By: Self Edit Transcribed Date: 05/18/2024 [...] Signed Date: 05/18/2024 15:22 ET Workstation ID: [id number] Transcribed By: Self Edit Transcribed Date: 05/18/2024 15:21 ET us Kimani Vera MD IM CT PROCEDURES Final Res ult * POC , urine manually resulted (05/18/2024 2:00 PM EDT) HCG, Ur POC Negative Negative POC hCG Int QC Pass? Yes Yes EXPIRATION DATE POC 2025-08-05 LOT NUMBER POC [id number] Urine Urine specimen obtained by clean catch procedure / Unknown 05/18/2024 2:00 PM EDT Kimani Vera MD POINT OF CARE TEST ENTER/ED IT ORDERABLES Final Result * (ABNORMAL) CBC auto differential (05/18/2024 1:24 PM EDT) Only the most recent of2 resultswithin the time period is included. WBC 8.8 4.8 - 10.8 K/mcL LAB [facility] RBC 4.80 3.80 - 4.80 M/mcL LAB HEMETOLOGY METHOD 05/18/2024 2:01 PM [facility] Hemoglobin 13.3 11.5 - 16.0 g/dL LAB HEMETOLOGY METHOD 05/18/2024 2:01 PM [facility] Hematocrit 42.8 35.0 - 47.0 % LAB HEMETOLOGY METHOD 05/18/2024 2:[facility] MCV 88.4 79.0 - 98.0 FL LAB HEMETOLOGY METHOD 05/18/2024 2:01 PM [facility] MCH 27.5 27.0 - 32.0 pcg LAB HEMETOLOGY METHOD 05/18/2024 2:01 PM [facility] MCHC 31.1(L) 32.0 - 37.0 g/dL LAB HEMETOLOGY METHOD 05/18/2024 2:01 PM [facility] RDW 13.2 11.0 - 15.0 % LAB HEMETOLOGY METHOD 05/18/2024 2:01 PM [facility] Platelets 211 130 - 400 K/mcL LAB HEMETOLOGY METHOD 05/18/2024 2:01 PM [facility] MPV 12.0(H) 7.0 - 11.0 FL LAB HEMETOLOGY METHOD 05/18/2024 2:01 PM [facility] NRBC 0.0 <1.0 % LAB HEMETOLOGY METHOD 05/18/2024 2:01 PM [facility] NRBC Absolute 0.00 <0.10 K/mcL LAB HEMETOLOGY METHOD 05/18/2024 2:01 PM [facility] Neutrophils Relative 69.3 % LAB HEMETOLOGY METHOD 05/18/2024 2:01 PM [facility] Lymphocytes Relative 19.6 % LAB HEMETOLOGY METHOD 05/18/2024 2:01 PM [facility] Monocytes Relative 5.8 % LAB HEMETOLOGY METHOD 05/18/2024 2:01 PM [facility] Eosinophils Relative 4.2 % LAB HEMETOLOGY METHOD 05/18/2024 2:01 PM [facility] Basophils Relative 0.6 % LAB HEMETOLOGY METHOD 05/18/2024 2:01 PM [facility] Immature Granulocytes Relative 0.5 % LAB HEMETOLOGY METHOD 05/18/2024 2:01 PM [facility] Neutrophils Absolute 6.08 1.50 - 7.00 K/mcL LAB HEMETOLOGY METHOD 05/18/2024 2:01 PM [facility] Lymphocytes Absolute 1.72 1.00 - 5.00 K/mcL LAB HEMETOLOGY METHOD 05/18/2024 2:01 PM [facility] Monocytes Absolute 0.51 0.20 - 1.00 K/mcL LAB HEMETOLOGY METHOD 05/18/2024 2:01 PM [facility] Eosinophils Absolute 0.37 0.00 - 0.50 K/mcL LAB HEMETOLOGY METHOD 05/18/2024 2:01 PM EDT [facility] Basophils Absolute 0.05 0.00 - 0.20 K/mcL LAB HEMETOLOGY METHOD 05/18/2024 2:01 PM EDT [facility] Immature Granulocytes Absolute 0.04(H) 0.00 - 0.03 K/mcL LAB HEMETOLOGY METHOD 05/18/2024 2:01 PM EDT [facility] Blood Venous blood specimen / Unknown Venipuncture / Unknown 05/18/2024 1:24 PM EDT 05/18/2024 1:52 PM EDT Kimani Vera MD LAB BLOOD ORDERABLES Final Result Performing Organization Address [facility] de Phone Number [facility] [address] [place] [address], [place] [phone] * Prolactin (05/18/2024 1:24 PM EDT) Pathologist [facility] Prolactin 11.80 See Comment ng/mL LAB CHEMISTRY METHOD 05/18/2024 2:50 PM EDT [facility] Comment: Prolactin Reference Ranges (ng/mL) ??Non ?2.2 - ??30.3 ? 8.1 - 347.6 ??Postmenopausal 0.7 - ??31.5 Blood Venous blood specimen / Unknown Venipuncture / Unknown 05/18/2024 1:24 PM EDT 05/18/2024 1:52 PM EDT Kimani Vera MD LAB BLOOD ORDERABLES Final Result Performing Organization Address [facility]/ZIP Co de Phone Number [facility] [address] [place] [address], [place] [phone] * Magnesium (05/18/2024 1:24 PM EDT) Only the most recent of2 resultswithin the time period is included. Magnesium 1.9 1.9 - 2.6 mg/dL LAB CHEMISTRY METHOD 05/18/2024 2:31 PM EDT [facility] Blood Venous blood specimen / Unknown Venipuncture / Unknown 05/18/2024 1:24 PM EDT 05/18/2024 1:52 PM EDT Kimani Vera MD LAB BLOOD ORDERABLES Final Result Performing Organization Address City/[facility] Co de Phone Number [facility] [address] [place] [address], [place] [phone] * Ethanol (05/18/2024 1:24 PM EDT) [facility] Ethanol Level 3 0 - 10 mg/dL LAB CHEMISTRY METHOD 05/18/2024 5:38 PM EDT [facility] Blood Venous blood specimen / Unknown Venipuncture / Unknown 05/18/2024 1:24 PM EDT 05/18/2024 1:52 PM EDT Kimani Vera MD LAB BLOOD ORDERABLES Final Result Performing Organization Address [facility] de Phone Number [facility] [address] [place] [address], [place] [phone] * Basic metabolic panel (05/18/2024 1:24 PM EDT) [facility] Sodium 143 133 - 145 mmol/L LAB CHEMISTRY METHOD 05/18/2024 2:31 PM EDT [facility] Potassium 4.0 3.5 - 5.5 mmol/L LAB CHEMISTRY METHOD 05/18/2024 2:31 PM EDT [facility] Chloride 109 96 - 110 mmol/L LAB CHEMISTRY METHOD 05/18/2024 2:31 PM EDT [facility] CO2 26 21 - 32 mmol/L LAB CHEMISTRY METHOD 05/18/2024 2:31 PM EDT [facility] Anion [place] 8 3 - 11 LAB CHEMISTRY METHOD 05/18/2024 2:31 PM EDT [facility] Glucose 88 70 - 100 mg/dL LAB CHEMISTRY METHOD 05/18/2024 2:31 PM EDT [facility] BUN 9 5 - 25 mg/dL LAB CHEMISTRY METHOD 05/18/2024 2:31 PM EDT [facility] Creatinine 0.57 0.50 - 1.10 mg/dL LAB CHEMISTRY METHOD 05/18/2024 2:31 PM EDT [facility] eGFR 123 >=60 mL/min/1. 73m2 LAB CHEMISTRY METHOD 05/18/2024 2:31 PM EDT [facility] Comment:Calculation based on the??Chronic Kidney Disease Epidemiology Collaboration (CKD-EPI) equation refit??without adjustment for race. BUN/Creatinine Ratio 15.8 LAB CHEMISTRY METHOD 05/18/2024 2:31 PM EDT [facility] Calcium 8.9 8.5 - 10.5 mg/dL LAB CHEMISTRY METHOD 05/18/2024 2:31 PM EDT [facility] Blood Venous blood specimen / Unknown Venipuncture / Unknown 05/18/2024 1:24 PM EDT 05/18/2024 1:52 PM EDT us Kimani Vera MD LAB BLOOD ORDERABLES Final Result [facility] [address] [place] [address], * CARDIAC HOLTER MONITOR (3RD DEMOCRAT REPORT [...] LAB COAGULATION METHOD 04/19/2024 9:09 AM EST [facility] Blood Venous blood specimen / Unknown Venipuncture / Unknown 04/19/2024 8:44 AM EST 04/19/2024 8:52 AM EST Narrative [facility] - 04/19/2024 9:09 AM [...] Vera MD LAB BLOOD ORDERABLES Final Result [facility] [address] [place] [address], * XR Chest 2 Views (04/19/2024 7:37 AM EST) Anatomical Region Laterality Modality Body Radiographic Annabelle ging 04/19/2024 7:45 AM EST Impressions 04/19/2024 7:47 AM EST No acute chest disease -------- FINAL REPORT -------- Dictated By: Waylon Zhang Dictated Date: 04/19/2024 07:45 ET Assigned Physician: Waylon Zhang Reviewed and Electronically Signed By: Waylon Zhang Signed Date: 04/19/2024 07:47 ET Workstation ID: [id number] Transcribed By: Self Edit Transcribed Date: 04/19/2024 [...] some artifact in the apex. Procedure Note Waylno Zhang MD - 04/19/2024 EXAMINATION: CHEST CLINICAL [...] Signed Date: 04/19/2024 07:47 ET Workstation ID: [id number] Transcribed By: Self Edit Transcribed Date: 04/19/2024 07:45 ET Prabhu SELLERS IMG XR PROCEDURES Final Result * B-type natriuretic peptide (04/19/2024 7:18 AM EST) BNP <2 <=100 pcg/mL LAB CHEMISTRY METHOD 04/19/2024 8:44 AM EST [facility] Blood Venous blood specimen / Unknown Venipuncture / Unknown 04/19/2024 7:18 AM EST 04/19/2024 8:06 AM EST us Prabhu SELLERS LAB BLOOD ORDERABLES Final Resul t Performing Organization Address City/[facility]/ZIP Co de Phone Number [facility] [address] [place] [address], [place] [phone] * Lipase (04/19/2024 7:18 AM EST) Pathologist [facility] Lipase 36 13 - 75 unit/L LAB CHEMISTRY METHOD 04/19/2024 8:36 AM [facility] Blood Venous blood specimen / Unknown Venipuncture / Unknown 04/19/2024 7:18 AM EST 04/19/2024 8:06 AM EST Prabhu SELLERS LAB BLOOD ORDERABLES Final Resul t Performing Organization Address City/[facility]/ZIP Co de Phone Number [facility] [address] [place] [address], [place] [phone] * Comprehensive metabolic panel (04/19/2024 7:18 AM EST) [facility] Sodium 139 133 - 145 mmol/L LAB CHEMISTRY METHOD 04/19/2024 8:36 AM [facility] Potassium 3.7 3.5 - 5.5 mmol/L LAB CHEMISTRY METHOD 04/19/2024 8:36 AM [facility] Chloride 109 96 - 110 mmol/L LAB CHEMISTRY METHOD 04/19/2024 8:36 AM [facility] CO2 25 21 - 32 mmol/L LAB CHEMISTRY METHOD 04/19/2024 8:36 AM [facility] Anion Gap 5 3 - 11 LAB CHEMISTRY METHOD 04/19/2024 8:36 AM [facility] Glucose 88 70 - 100 mg/dL LAB CHEMISTRY METHOD 04/19/2024 8:36 AM [facility] BUN 10 5 - 25 mg/dL LAB CHEMISTRY METHOD 04/19/2024 8:36 AM [facility] Creatinine 0.60 0.50 - 1.10 mg/dL LAB CHEMISTRY METHOD 04/19/2024 8:36 AM [facility] eGFR 122 >=60 mL/min/1. 73m2 LAB CHEMISTRY METHOD 04/19/2024 8:36 AM [facility] Comment:Calculation based on the??Chronic Kidney Disease Epidemiology Collaboration (CKD-EPI) equation refit??without adjustment for race. BUN/Creatinine Ratio 16.7 LAB CHEMISTRY METHOD 04/19/2024 8:36 AM [facility] Calcium 9.4 8.5 - 10.5 mg/dL LAB CHEMISTRY METHOD 04/19/2024 8:36 AM [facility] AST (SGOT) 11 10 - 42 unit/L LAB CHEMISTRY METHOD 04/19/2024 8:36 AM [facility] ALT (SGPT) 20 10 - 60 unit/L LAB CHEMISTRY METHOD 04/19/2024 8:36 AM [facility] Alkaline Phosphatase 78 42 - 121 unit/L LAB CHEMISTRY METHOD 04/19/2024 8:36 AM [facility] Total Protein 6.6 6.0 - 8.0 g/dL LAB CHEMISTRY METHOD 04/19/2024 8:36 AM [facility] Albumin 3.8 3.2 - 5.0 g/dL LAB CHEMISTRY METHOD 04/19/2024 8:36 AM [facility] Total Bilirubin 0.6 0.0 - 1.4 mg/dL LAB CHEMISTRY METHOD 04/19/2024 8:36 AM [facility] Blood Venous blood specimen / Unknown Venipuncture / Unknown 04/19/2024 7:18 AM EST 04/19/2024 8:06 AM EST Prabhu SELLERS LAB BLOOD ORDERABLES Final Resul t [facility] [address] [place] [address], from Last 3 Months Insurance [facility] MEDICARE Member Subscriber Plan / Payer (Ef fective 2023-Present) Name:Linda Oliveros Relation to Subscriber:Self Name:Linda Oliveros Payer ID:[id number] Group ID:[id number] Type:Not on file Address: [place] [address] [address] [id number] Advance Directives Documents on File Type Date Recorded Patient Security Clerk Expl anation Advance Directives and Living Will 05/20/2024 2:05 PM Kathyajoe Tuttle [facility] Care Proxy * Full Code - Default [...] Relationshi p Communication Kathya Tuttle [facility] Care Agent Care Teams Glass Wool Blanket Machine Feeder Relationship Specialty Start Date End Date Hailee Velazquez MD [address] [place] [address] [phone] PCP - General Internal Medicine 04/19/24
== END 2024-06-18 08:46 | disposition home or self-care (01) ==
LOC: HO.LNP 08:45
PROVIDERS: PCP Internal Medicine; Visit Provider Nurse Practitioner Family
DX: J06.9 Acute upper respiratory infection, unspecified (principal); T78.40XA Allergy, unspecified, initial encounter
CPT/HCPCS: 0241U; 99212

== ENCOUNTER 2024-06-18 08:45 | Outpatient (AMB) | payer OTHER, SELFPAY ==
--- OUTSIDE RECORDS SUMMARY | 2024-06-18 08:54 | XMS_ITS | Clinical Summary ---
Author Organization [facility] Address [address] [place] [address] Phone Care Team Providers Care Slasher Tender Name Role Phone Hailee Velazquez MD Primary Care Provider [phone] Allergies Active Allergy Reactions Criticality Noted Date Comments Penicillins Rash 05/18/2024 Medications tiZANidine (ZANAFLEX) 4 mg tablet Take 1 tablet (4 mg total) by mouth every 8 (eight) hours if needed for muscle spasms for up to 10 days. 30 tablet 5 Active LORazepam (ATIVAN) 0.5 mg tablet Take 0.5 tablets (0.25 mg total) by mouth 1 (one) time each day if needed for anxiety. for anxiety Max Daily Amount: 0.25 mg 5 Active lamoTRIgine (LaMICtal) 25 mg tablet Take 1 tablet (25 mg total) by mouth 2 (two) times a day. 60 each 2 5 08/19/19 25 Active butalbital-kelsi taminophen-caf feine (FIORICET, ESGIC) 50-325-40 mg per tablet Take 1 tablet by mouth every 4 (four) hours if needed for headaches. 15 tablet 5 Active lamoTRIgine (LaMICtal) 25 mg tablet Take 1 tablet (25 mg total) by mouth 1 (one) time each day. 30 each 2 5 05/21/19 25 Discontinued Active Problems Problem Noted Date Diagnosed Date Seizure (CMS/HCC V24, [facility] V28) 05/18/2024 Encounters Date Type Department Care Team Description 05/18/2024 1:30 PM EDT - 05/20/2024 6:23 PM EDT Emergency [facility] [address] [place] [phone] Kimani Vera MD Ishtiaq, Rizwan, MD Bell, Alistair A, MD Other migraine without status migrainosus, not intractable (Primary Dx); Absence seizure ([facility] V24, [facility] V28); Atypical seizure ([facility] V24, [facility] V28) Discharge Disposition: Home or Self Care 04/26/2024 Telephone [facility] [address] [place] [phone] Stefan Dalal 04/19/2024 6:35 AM EST - 04/19/2024 12:02 PM EST Emergency [facility] Emergency [address] [place] [phone] Kimani Vera MD Chest pain, unspecified type (Primary Dx); Palpitation Discharge Disposition: Home or Self Care 04/19/2024 Community Care Management [facility] [address] [place] [phone] Stefan Dalal from Last 3 Months Medical History Medical History Date Comments Anxiety Depression Asthma Fibromyalgia Migraine aura occurring with 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 No 05/18/2024 Food Access & Nutrition Answer Date Rec orded Do you have access to a vari ety of food including fruits and vegetables? Yes 05/18/2024 Access to Healthcare Answer Date Record ed Within the last 3 months, ho w many times did you visit the emergency department for your medical care? 10 04/19/2024 Health Literacy Answer Date Recorded How often do you need to hav e someone help you when you read instructions, pamphlets, or other written material from your doctor or pharmacy? Sometimes 05/18/2024 Caregiver: How often do you need to have someone help you when you read instructions, pamphlets, or other written material from your doctor or pharmacy? Not on file 05/18/2024 Financial Risk Answer Date Recorded How hard is it for you to pa y for the very basics like food, housing, medical care, and air conditioning / heating? Somewhat hard 05/18/2024 Transportation Answer Date Recorded Has the lack of transportati on kept you from meetings, work, or from getting things needed for daily living? Yes Has the lack of transportati on kept you from medical appointments or from getting medications? Yes 05/18/2024 Social Isolation Answer Date Recorded How often do you feel lonely or isolated from those around you? Sometimes 05/18/2024 Food Risk Answer Date Recorded Within the past 12 months we worried whether our food would run out before we got money to buy more. Sometimes true 025 Within the past 12 months th e food we bought just didn't last and we didn't have money to get more. Sometimes true 05/18/2024 Dependent Care Answer Date Recorded Do you need help finding or paying for care for your loved ones. For example, director of early childhood education or elderly care for an older adult? Yes 05/18/2024 Education Answer Date Recorded Do you think completing more education or training, like finishing a GED, going to college, or learning a trade, would be helpful for you? Yes 05/18/2024 Employment and Income Answer Date Recor ded During the last four weeks, have you been actively looking for work? No 05/18/2024 Living Situation Answer Date Recorded What is your living situation? 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 file Not on file Not on file Obstetrics History Last Filed Vital Signs Vital Sign Reading Time Taken Comments Blood Pressure 107/67 05/20/2024 3:26 PM EDT Pulse 69 05/20/2024 3:26 PM EDT Temperature 36.6 ??C (97.9 ??F) 05/20/2024 3:26 PM ED T Respiratory Rate 16 05/20/2024 3:26 PM EDT Oxygen Saturation 100% 05/20/2024 3:26 PM EDT Inhaled Oxygen Concentration - - Weight 61.2 kg (135 lb) 05/18/2024 1:15 PM EDT Height 154.9 cm (5' 1 ) 05/18/2024 1:15 PM EDT Body Mass Index 25.51 05/18/2024 1:15 PM EDT Plan of Treatment Health Maintenance Due Date Last Done Comments Pneumococcal Vaccine: Pediatrics (0 to 5 Years) and At-Risk Patients (6 to 64 Years) (1 of 2 - PCV) 2009 Cervical Cancer Screening: Pap Smear 07/02/2011 Depression Screening 04/08/2023 HIV Screening 04/08/2023 Hepatitis C Screening 04/08/2023 Medicare Annual Wellness Visit 04/08/2023 COVID-19 Vaccine ( season) 2023 01/14/2021, 12/23/2020 Influenza Vaccine (Season Ended) 2024 12/27/2022, 03/19/2021, 01/19/2018, Additional history exists Social Influencers of Health Screening 05/18/2025 05/18/2024 DTaP,Tdap,and Td Vaccines (5 - Td or Tdap) 05/05/2033 05/05/2023, 05/08/2021, 05/14/2018, Additional history exists MMR Vaccines Completed 09/18/2015, 07/02/1991 Hepatitis B Vaccines Completed 12/04/2016, 09/18/2015, 1990 HPV Vaccines Completed 02/25/2019, 12/09, 09/18/2015 HIB Vaccines Aged Out No longer eligi [...] age to complete this topic Meningococcal B Vaccine Aged Out No l onger eligible based on patient's age to complete this topic RSV Immunization Patients Under 20 months Aged Out No longer eligible based on patient's age to complete this topic Varicella Vaccines Aged Out No longer eligible based on patient's age to complete this topic Procedures Procedure Name Priority Date/Time Associated Diagnosis Comments HEMOGLOBIN AND HEMATOCRIT Routine 05/20/2024 1:33 PM EDT TROPONIN I HIGH SENSITIVITY STAT 05/20/2024 6:42 AM EDT POCT GLUCOSE BLOOD Routine 05/20/2024 4: 03 AM EDT ECG 12-LEAD Routine 05/20/2024 3:18 AM EDT ROUTINE EEG Routine 05/19/2024 4:34 PM EDT MR BRAIN WO AND W CONTRAST Routine 05/19/2024 2:53 PM EDT ECG 12-LEAD STAT 05/19/2024 9:51 AM EDT ECG ANNOTATED 05/19/2024 YELLOW URINE NO ADDITIVE Routine 05/18/2024 11:36 PM EDT EXTRA TUBES Routine 05/18/2024 11:36 PM EDT DRUG ABUSE SCREEN 8A PANEL, URINE STAT 05/18/2024 11:36 PM EDT URINALYSIS WITH REFLEX MICROSCOPIC STAT 05/18/2024 3:15 PM EDT URINALYSIS WITH REFLEX MICROSCOPIC STAT 05/18/2024 3:15 PM EDT CHLAMYDIA TRACHOMATIS AND NEISSERIA GONORRHOEAE PCR STAT 05/18/2024 3:[address] HEAD WO CONTRAST STAT 05/18/2024 3 :10 PM EDT POC , URINE DIAGNOSTIC STAT 05/18/2024 2:00 PM EDT ECG 12-LEAD STAT 05/18/2024 1:28 PM EDT ETHANOL Add-On 05/18/2024 1:24 PM EDT CBC WITH AUTO DIFFERENTIAL STAT 05/18/2024 1:24 PM EDT PROLACTIN STAT 05/18/2024 1:24 PM EDT MAGNESIUM STAT 05/18/2024 1:24 PM EDT BASIC METABOLIC PANEL STAT 05/18/2024 1:24 PM EDT CBC AND DIFFERENTIAL STAT 05/18/2024 1:24 PM EDT ECG ANNOTATED 04/20/2024 ECG ANNOTATED 04/20/2024 CARDIAC [...] EST from Last 3 Months Results * Hemoglobin and hematocrit (05/20/2024 1:33 PM EDT) [facility] Hemoglobin 12.4 11.5 - 16.0 g/dL LAB HEMETOLOGY METHOD 05/20/2024 2:01 PM EDT [facility] Hematocrit 39.6 35.0 - 47.0 % LAB HEMETOLOGY METHOD 05/20/2024 2:01 PM EDT [facility] Blood Venous blood specimen / Unknown Venipuncture / Unknown 05/20/2024 1:33 PM EDT 05/20/2024 1:56 PM EDT Mick Ramirez MD LAB BLOOD ORDERABLES Final Re sult [facility] [address] [place] [address], * Troponin I high sensitivity (05/20/2024 6:42 AM EDT) Only the most recent of3 resultswithin the time period is included. [facility] High Sensitivity Troponin I 4 <=54 ng/L LAB CHEMISTRY METHOD 05/20/2024 7:33 AM EDT [facility] Blood Venous blood specimen / Unknown Venipuncture / Unknown 05/20/2024 6:42 AM EDT 05/20/2024 6:56 AM EDT Narrative [facility] - 05/20/2024 7:33 AM EDT High levels of biotin in samples may falsely decrease hsTroponin values. ??Use caution when interpreting hsTroponin results in patients taking biotin who exhibit renal impairment (eGFR <60) or in patients taking more than 20 mg/day of biotin. [facility] LAB BLOOD ORDERABLES Final Res ult [facility] [address] [place] [address], [place] [phone] * POCT Glucose, blood (05/20/2024 4:03 AM EDT) [facility] Glucose POCT 91 70 - 100 mg/dL 05/20/2024 4:04 AM EDT [facility] Blood Capillary blood specimen / Unknown 05/20/2024 4:03 AM EDT 05/20/2024 4:05 AM EDT Mick Ramirez MD LAB POINT OF CARE TE ST DOCKED DEVICE UNSOLICITED RESULTS Final Result Performing Organization Address City/[facility]/ZIP Co de Phone Number [facility] [address] [place] [address], [place] [phone] * ECG 12 lead (05/20/2024 3:18 AM EDT) Only the most recent of5 resultswithin the time period is included. [facility] Signature Ventricular Rate ECG 67 BPM GEMUSE Atrial Rate 67 BPM GEMUSE P-R Interval 138 ms GEMUSE QRS Duration 82 ms GEMUSE Q-T Interval 412 ms GEMUSE QTc 435 ms GEMUSE P Wave [place] 25 degrees GEMUSE R [place] 59 degrees GEMUSE T [place] 68 degrees GEMUSE ECG Interpretation Normal sinus rhythm with sinus arrhythmia Normal ECG When compared with ECG of 19-MAY-2024 09:51, Nonspecific T wave abnormality no longer evident in Anterolateral leads Confirmed by MD Godoy Christopher ([id number]) on 05/20/2024 10:15:31 PM GEMUSE 05/20/2024 3:18 AM EDT 05/20/2024 10:15 PM EDT us Bandar Pompa MD ECG ORDERABLES Final Result GEMUSE * Routine EEG (05/19/2024 4:34 PM EDT) Narrative Santi Steen MD - 05/19/2024 11:45 PM EDT Santi Steen MD ? 05/20/2024 12:32 PM ROUTINE ELECTROENCEPHALOGRAPHY (EEG) REPORT Study Date: 05/19/2024 Clinical Information History: Linda Oliveros is a 33 y.o. woman presented with NG and multiple absence like seizures in the past 24 hrs. Medications: Current Facility-Administered Medications: ??lamoTRIgine (LaMICtal) tablet 25 mg, 25 mg, oral, Daily, Mick Ramirez MD, 25 mg at 05/20/24 08 ??LORazepam (ATIVAN) tablet 0.25 mg, 0.25 mg, oral, Daily PRN, Mick Ramirez MD, 0.25 mg at 05/20/24 08 ??ondansetron (PF) (ZOFRAN) injection 4 mg, 4 mg, intravenous, q6h PRN, Mick Ramirez MD, 4 mg at 05/20/24 0817 ??tiZANidine (ZANAFLEX) tablet 4 mg, 4 mg, oral, q8h PRN, Mick Ramirez MD, 4 mg at 05/19/24 7598 Recording Techniques A digital video EEG was performed using the standard international 10-20 electrode placement and single channel EKG electrode. ?? Total Recording Time: 26 minutes Montages: Standard 10-20 system montages Type of Study: Routine EEG Video recorded: Yes Conditions of Recording: Awake - drowsy - asleep Results Background: The record was well organized. The waking EEG was characterized by a symmetrical, well-formed and modulated 11 Hz posterior dominant rhythm, with medium amplitude (20-70 uV) and reactive to eye opening. The background over the rest of the head consisted of a mixture of alpha and beta frequencies. Sleep: During drowsiness, the alpha rhythm attenuated and diffuse background slowing appeared. Stage 2 sleep was characterized by the appearance of sleep spindles and vertex waves. Focal slowing: There were no focal abnormalities or persistent asymmetries. Epileptiform discharges: None Activation Procedures: Hyperventilation: Hyperventilation for 3 minutes produced generalized slowing Photic Simulation: Produced an occipital driving response at some frequencies, but did not result in any abnormal discharges. Clinical events: None Heart Rate: Normal sinus rhythm Classification of the findings: ?? Normal Impression This is a normal routine EEG recording in the [id number] states. ??There were no seizures, periodic patterns, or epileptiform discharges. There is no focal slowing or persistent focal asymmetries of the background rhythms. However, a normal EEG does not rule out epilepsy or seizure. Clinical correlation is advised. CC No ref. provider found Santi Steen MD Epileptologist/Staff neurologist us Alexandr Mayers MD NEUROLOGY ORDERABLES Final Res ult * MR Brain wo and w Contrast (05/19/2024 2:53 PM EDT) Anatomical Region Laterality Modality Head and Neck Magnetic Resonan ce 05/19/2024 3:04 PM EDT Impressions 05/19/2024 3:09 PM EDT Normal study. -------- FINAL REPORT -------- Dictated By: Bulmaro Harper Dictated Date: 05/19/2024 15:04 ET Assigned Physician: Bulmaro Harper Reviewed and Electronically Signed By: Bulmaro Harper Signed Date: 05/19/2024 15:09 ET Workstation ID: [id number] Transcribed By: Self Edit Transcribed Date: 05/19/2024 15:04 ET Narrative 05/19/2024 3:09 PM EDT HISTORY: ??Seizure, nontraumatic (Age 18-40y). TECHNIQUE: Routine MRI of the brain with and without contrast. ?? Contrast: ?? 12mL Dotarem COMPARISON: ??None available. FINDINGS: No acute territorial infarct, mass effect, or intracranial hemorrhage. No significant white matter disease No hydrocephalus. Visualized paranasal sinuses are clear. Mastoid air cells are clear. No calvarial fracture. Orbits unremarkable. Procedure Note Bulmaro Harper MD - 05/19/2024 HISTORY: Seizure, nontraumatic (Age 18-40y). TECHNIQUE: Routine MRI of the brain with and without contrast. Contrast: 12mL Dotarem COMPARISON: None available. FINDINGS: No acute territorial infarct, mass effect, or intracranial hemorrhage. No significant white matter disease No hydrocephalus. Visualized paranasal sinuses are clear. Mastoid air cells are clear. No calvarial fracture. Orbits unremarkable. IMPRESSION: Normal study. -------- FINAL REPORT -------- Dictated By: Bulmaro Harper Dictated Date: 05/19/2024 15:04 ET Assigned Physician: Bulmaro Harper Reviewed and Electronically Signed By: Bulmaro Harper Signed Date: 05/19/2024 15:09 ET Workstation ID: [id number] Transcribed By: Self Edit Transcribed Date: 05/19/2024 15:04 ET Mick Ramirez MD IMG MRI PROCEDURES Final Resu lt * ECG-Annotated (05/19/2024) Only the most recent of3 resultswithin the time period is included. us Provider Onbase ECG ORDERABLES Final Result * (ABNORMAL) Drug abuse screen 8a panel, urine (05/18/2024 11:36 PM EDT) Amphetamine Screen, Ur Negative Negative LAB CHEMISTRY METHOD 5 12:44 AM EDT [facility] Comment:Certain OTC medicati ons containing ephedrine, phenylephrine, pseudoephedrine and phenylpropanolamine can cause false positive results. Barbiturate Screen, Ur Positive(A ) Negative LAB CHEMISTRY METHOD 5 12:44 AM EDT [facility] Benzodiazepine Screen, Ur Negative Negative LAB CHEMISTRY METHOD 5 12:44 AM [facility] Cocaine Screen, Ur Negative Negative LAB CHEMISTRY METHOD 5 12:44 AM T [facility] Opiate Screen, Ur Negative Negative LAB CHEMISTRY METHOD 5 12:44 AM EDT [facility] Cannabinoid (THC) Screen, Ur Positive(A ) Negative LAB CHEMISTRY METHOD 5 12:44 AM EDT [facility] Comment:Specimens from patie nts taking pantoprazole sodium (Protonix) have been shown to produce false positive results. Oxycodone Screen, Ur Negative Negative LAB CHEMISTRY METHOD 5 12:44 AM EDT [facility] Fentanyl, Ur Negative Negative LAB CHEMISTRY METHOD 5 12:44 AM EDT [facility] Urine Urine specimen obtained by clean catch procedure / Unknown Non-blood Collection / Unknown 05/18/2024 11:36 PM EDT 05/18/2024 11:41 PM EDT Narrative [facility] - 05/19/2024 12:44 AM EDT Assay cutoffs: Amphetamines ? 1000 ng/mL Barbiturates ?200 ng/mL Benzodiazepines ?? 200 ng/mL Cocaine ? 300 ng/mL Fentanyl ?1 ng/mL Opiates ? 300 ng/mL Oxycodone ? 100 ng/mL THC ?50 ng/mL Semi-quantitative assay for screening purposes only. Unconfirmed screening result should not be used for non-medical purposes. *ALTERNATE METHOD CONFIRMATION DONE UPON REQUEST ONLY* us Kimani Vera MD LAB URINE ORDERABLES Final Result [facility] [address] [place] [address], * Yellow urine no additive (05/18/2024 11:36 PM EDT) Extra Tube Hold for add-ons. 05/19/2024 1:02 AM EDT [facility] Comment:Auto resulted. Urine Urine specimen obtained by clean catch procedure / Unknown Non-blood Collection / Unknown 05/18/2024 11:36 PM EDT 05/18/2024 11:41 PM EDT us Alexandr Mayers MD LAB URINE ORDERABLES Final Res ult [facility] [address] [place] [address], [place] [phone] * Urinalysis with reflex microscopic (05/18/2024 3:15 PM EDT) Specific [place] Urine 1.029 1.003 - 1.030 LAB URINALYSIS - AUTOMATED METHOD 05/18/2024 4:03 PM [facility] pH, Urine 6.0 5.0 - 8.0 pH LAB URINALYSIS - AUTOMATED METHOD 05/18/2024 4:03 PM [facility] Leukocytes, Urine Negative Negative LAB URINALYSIS - AUTOMATED METHOD 05/18/2024 4:03 PM [facility] Nitrite, Urine Negative Negative LAB URINALYSIS - AUTOMATED METHOD 05/18/2024 4:03 PM [facility] Protein, Urine Negative <=Trace mg/dL LAB URINALYSIS - AUTOMATED METHOD 05/18/2024 4:03 PM [facility] Glucose, Urine Negative Negative mg/dL LAB URINALYSIS - AUTOMATED METHOD 05/18/2024 4:03 PM [facility] Ketones, Urine Negative Negative mg/dL LAB URINALYSIS - AUTOMATED METHOD 05/18/2024 4:03 PM [facility] Urobilinogen, Urine 0.2 0.2 - 1.0 mg/dL LAB URINALYSIS - AUTOMATED METHOD 05/18/2024 4:03 PM [facility] Bilirubin, Urine Negative Negative LAB URINALYSIS - AUTOMATED METHOD 05/18/2024 4:03 PM EDT [facility] Blood, Urine Negative Negative LAB URINALYSIS - AUTOMATED METHOD 05/18/2024 4:03 PM EDT [facility] Urine Urine specimen obtained by clean catch procedure / Unknown Non-blood Collection / Unknown 05/18/2024 3:15 PM EDT 05/18/2024 3:39 PM EDT Kimani Vera MD LAB URINE ORDERABLES Final Result [facility] [address] [place] [address], [place] [phone] * Chlamydia trachomatis and Neisseria gonorrhoeae molecular study (05/18/2024 3:15 PM EDT) Neisseria gonorrhoeae PCR Negative Negative LAB MOLECULAR DIAGNOSTICS METHOD 05/19/2024 9:41 AM EDT [facility] Chlamydia trachomatis PCR Negative Negative LAB MOLECULAR DIAGNOSTICS METHOD 05/19/2024 9:41 AM EDT [facility] Swab Urine specimen obtained by clean catch procedure / Unknown Non-blood Collection / Unknown 05/18/2024 3:15 PM EDT 05/18/2024 3:38 PM EDT Kimani Vera MD LAB MICROBIOLOGY - GENERAL ORDERABLES Final Result [facility] [address] [place] [address], [place] [phone] * CT Head wo Contrast (05/18/2024 3:10 PM EDT) Anatomical Region Laterality Modality Head and Neck Computed Tomogra phy 05/18/2024 3:21 PM EDT Impressions 05/18/2024 3:22 PM EDT NO ACUTE INTRACRANIAL ABNORMALITY. -------- FINAL REPORT -------- Dictated By: Bulmaro Harper Dictated Date: 05/18/2024 15:21 ET Assigned Physician: Bulmaro Harper Reviewed and Electronically Signed By: Bulmaro Harper Signed Date: 05/18/2024 15:22 ET Workstation ID: [id number] Transcribed By: Self Edit Transcribed Date: 05/18/2024 15:21 ET Narrative 05/18/2024 3:22 PM EDT PROCEDURE: HEAD CT INDICATION: Mental status change, unknown cause TECHNIQUE: CT of the head without intravenous contrast. Multiplanar reformats. The examination was performed utilizing dose reduction techniques. Total DLP 937 COMPARISON: ??No priors available. FINDINGS: ?? No acute territorial infarct, mass effect, or intracranial hemorrhage. No significant white matter disease No hydrocephalus. Visualized paranasal sinuses are clear. Mastoid air cells are clear. No calvarial fracture. Procedure Note Bulmaro Harper MD - 05/18/2024 PROCEDURE: HEAD CT INDICATION: Mental status change, unknown cause TECHNIQUE: CT of the head without intravenous contrast. Multiplanarreformats. The examination was performed utilizing dose reductiontechniques. Total DLP 937 COMPARISON: No priors available. FINDINGS: No acute territorial infarct, mass effect, or intracranial hemorrhage. No significant white matter disease No hydrocephalus. Visualized paranasal sinuses are clear. Mastoid air cells are clear. No calvarial fracture. IMPRESSION: NO ACUTE INTRACRANIAL ABNORMALITY. -------- FINAL REPORT -------- Dictated By: Bulmaro Harper Dictated Date: 05/18/2024 15:21 ET Assigned Physician: Bulmaro Harper Reviewed and Electronically Signed By: Bulmaro Harper Signed Date: 05/18/2024 15:22 ET Workstation ID: [id number] Transcribed By: Self Edit Transcribed Date: 05/18/2024 15:21 ET us Kimani Vera MD IM CT PROCEDURES Final Res ult * POC , urine manually resulted (05/18/2024 2:00 PM EDT) HCG, Ur POC Negative Negative POC hCG Int QC Pass? Yes Yes EXPIRATION DATE POC 2025-08-05 LOT NUMBER POC [id number] Urine Urine specimen obtained by clean catch procedure / Unknown 05/18/2024 2:00 PM EDT Kimani Vera MD POINT OF CARE TEST ENTER/ED IT ORDERABLES Final Result * (ABNORMAL) CBC auto differential (05/18/2024 1:24 PM EDT) Only the most recent of2 resultswithin the time period is included. WBC 8.8 4.8 - 10.8 K/mcL LAB HEMETOLOGY [facility]/18[facility]2024 [facility] RBC 4.80 3.80 - 4.80 M/mcL LAB HEMETOLOGY METHOD 05/18/2024 2:01 PM [facility] Hemoglobin 13.3 11.5 - 16.0 g/dL LAB HEMETOLOGY METHOD 05/18/2024 2:01 PM [facility] Hematocrit 42.8 35.0 - 47.0 % LAB HEMETOLOGY METHOD 05/18/2024 2:01 PM [facility] MCV 88.4 79.0 - 98.0 FL LAB HEMETOLOGY METHOD 05/18/2024 2:01 PM [facility] MCH 27.5 27.0 - 32.0 pcg LAB HEMETOLOGY METHOD 05/18/2024 2:01 PM [facility] MCHC 31.1(L) 32.0 - 37.0 g/dL LAB HEMETOLOGY METHOD 05/18/2024 2:01 PM [facility] RDW 13.2 11.0 - 15.0 % LAB HEMETOLOGY METHOD 05/18/2024 2:01 PM [facility] Platelets 211 130 - 400 K/mcL LAB HEMETOLOGY METHOD 05/18/2024 2:01 PM [facility] MPV 12.0(H) 7.0 - 11.0 FL LAB HEMETOLOGY METHOD 05/18/2024 2:01 PM [facility] NRBC 0.0 <1.0 % LAB HEMETOLOGY METHOD 05/18/2024 2:01 PM [facility] NRBC Absolute 0.00 <0.10 K/mcL LAB HEMETOLOGY METHOD 05/18/2024 2:01 PM [facility] Neutrophils Relative 69.3 % LAB HEMETOLOGY METHOD 05/18/2024 2:01 PM [facility] Lymphocytes Relative 19.6 % LAB HEMETOLOGY METHOD 05/18/2024 2:01 PM [facility] Monocytes Relative 5.8 % LAB HEMETOLOGY METHOD 05/18/2024 2:01 PM [facility] Eosinophils Relative 4.2 % LAB HEMETOLOGY METHOD 05/18/2024 2:01 PM [facility] Basophils Relative 0.6 % LAB HEMETOLOGY METHOD 05/18/2024 2:01 PM [facility] Immature Granulocytes Relative 0.5 % LAB HEMETOLOGY METHOD 05/18/2024 2:01 PM [facility] Neutrophils Absolute 6.08 1.50 - 7.00 K/mcL LAB HEMETOLOGY METHOD 05/18/2024 2:01 PM [facility] Lymphocytes Absolute 1.72 1.00 - 5.00 K/mcL LAB HEMETOLOGY METHOD 05/18/2024 2:01 PM [facility] Monocytes Absolute 0.51 0.20 - 1.00 K/mcL LAB HEMETOLOGY METHOD 05/18/2024 2:01 PM [facility] Eosinophils Absolute 0.37 0.00 - 0.50 K/mcL LAB HEMETOLOGY METHOD 05/18/2024 2:01 PM EDT [facility] Basophils Absolute 0.05 0.00 - 0.20 K/mcL LAB HEMETOLOGY METHOD 05/18/2024 2:01 PM EDT [facility] Immature Granulocytes Absolute 0.04(H) 0.00 - 0.03 K/mcL LAB HEMETOLOGY METHOD 05/18/2024 2:01 PM EDT [facility] Blood Venous blood specimen / Unknown Venipuncture / Unknown 05/18/2024 1:24 PM EDT 05/18/2024 1:52 PM EDT Kimani Vera MD LAB BLOOD ORDERABLES Final Result Performing Organization Address [facility] de Phone Number [facility] [address] [place] [address], [place] [phone] * Prolactin (05/18/2024 1:24 PM EDT) Pathologist [facility] Prolactin 11.80 See Comment ng/mL LAB CHEMISTRY METHOD 05/18/2024 2:50 PM EDT [facility] Comment: Prolactin Reference Ranges (ng/mL) ??Non ?2.2 - ??30.3 ? 8.1 - 347.6 ??Postmenopausal 0.7 - ??31.5 Blood Venous blood specimen / Unknown Venipuncture / Unknown 05/18/2024 1:24 PM EDT 05/18/2024 1:52 PM EDT Kimani Vera MD LAB BLOOD ORDERABLES Final Result Performing Organization Address [facility]/ZIP Co de Phone Number [facility] [address] [place] [address], [place] [phone] * Magnesium (05/18/2024 1:24 PM EDT) Only the most recent of2 resultswithin the time period is included. Magnesium 1.9 1.9 - 2.6 mg/dL LAB CHEMISTRY METHOD 05/18/2024 2:31 PM EDT [facility] Blood Venous blood specimen / Unknown Venipuncture / Unknown 05/18/2024 1:24 PM EDT 05/18/2024 1:52 PM EDT Kimani Vera MD LAB BLOOD ORDERABLES Final Result Performing Organization Address City/[facility] Co de Phone Number [facility] [address] [place] [address], [place] [phone] * Ethanol (05/18/2024 1:24 PM EDT) [facility] Ethanol Level 3 0 - 10 mg/dL LAB CHEMISTRY METHOD 05/18/2024 5:38 PM EDT [facility] Blood Venous blood specimen / Unknown Venipuncture / Unknown 05/18/2024 1:24 PM EDT 05/18/2024 1:52 PM EDT Kimani Vera MD LAB BLOOD ORDERABLES Final Result Performing Organization Address [facility] de Phone Number [facility] [address] [place] [address], [place] [phone] * Basic metabolic panel (05/18/2024 1:24 PM EDT) [facility] Sodium 143 133 - 145 mmol/L LAB CHEMISTRY METHOD 05/18/2024 2:31 PM EDT [facility] Potassium 4.0 3.5 - 5.5 mmol/L LAB CHEMISTRY METHOD 05/18/2024 2:31 PM EDT [facility] Chloride 109 96 - 110 mmol/L LAB CHEMISTRY METHOD 05/18/2024 2:31 PM EDT [facility] CO2 26 21 - 32 mmol/L LAB CHEMISTRY METHOD 05/18/2024 2:31 PM EDT [facility] Anion Gap 8 3 - 11 LAB CHEMISTRY METHOD 05/18/2024 2:31 PM EDT [facility] Glucose 88 70 - 100 mg/dL LAB CHEMISTRY METHOD 05/18/2024 2:31 PM EDT [facility] BUN 9 5 - 25 mg/dL LAB CHEMISTRY METHOD 05/18/2024 2:31 PM EDT [facility] Creatinine 0.57 0.50 - 1.10 mg/dL LAB CHEMISTRY METHOD 05/18/2024 2:31 PM EDT [facility] eGFR 123 >=60 mL/min/1. 73m2 LAB CHEMISTRY METHOD 05/18/2024 2:31 PM EDT [facility] Comment:Calculation based on the??Chronic Kidney Disease Epidemiology Collaboration (CKD-EPI) equation refit??without adjustment for race. BUN/Creatinine Ratio 15.8 LAB CHEMISTRY METHOD 05/18/2024 2:31 PM EDT [facility] Calcium 8.9 8.5 - 10.5 mg/dL LAB CHEMISTRY METHOD 05/18/2024 2:31 PM EDT [facility] Blood Venous blood specimen / Unknown Venipuncture / Unknown 05/18/2024 1:24 PM EDT 05/18/2024 1:52 PM EDT us Kimani Vera MD LAB BLOOD ORDERABLES Final Result [facility] [address] [place] [address], * CARDIAC HOLTER MONITOR (3[employer] PARTY [...] LAB COAGULATION METHOD 04/19/2024 9:09 AM EST [facility] Blood Venous blood specimen / Unknown Venipuncture / Unknown 04/19/2024 8:44 AM EST 04/19/2024 8:52 AM EST Narrative [facility] - 04/19/2024 9:09 AM EST D-Dimer <230 ng/mL (D-Dimer units) is the threshold for exclusion of DVT/PE. D-Dimer may be elevated in: Critically ill, severely infected, trauma patients, DIC, acute CVA, acute [place], unstable angina, AF, old age, , and smoking. D-Dimer may be decreased with: Initiation of heparin therapy and oral anticoagulants. Kimani Vera MD LAB BLOOD ORDERABLES Final Result [facility] [address] [place] [address], * XR Chest 2 Views (04/19/2024 7:37 AM EST) Anatomical Region Laterality Modality Body Radiographic Annabelle ging 04/19/2024 7:45 AM EST Impressions 04/19/2024 7:47 AM EST No acute chest disease -------- FINAL REPORT -------- Dictated By: Waylon Zhang Dictated Date: 04/19/2024 07:45 ET Assigned Physician: Waylon Zhang Reviewed and Electronically Signed By: Waylon Zhang Signed Date: 04/19/2024 07:47 ET Workstation ID: [id number] Transcribed By: Self Edit Transcribed Date: 04/19/2024 [...] Signed Date: 04/19/2024 07:47 ET Workstation ID: [id number] Transcribed By: Self Edit Transcribed Date: 04/19/2024 07:45 ET Prabhu SELLERS IMG XR PROCEDURES Final Result * B-type natriuretic peptide (04/19/2024 7:18 AM EST) BNP <2 <=100 pcg/mL LAB CHEMISTRY METHOD 04/19/2024 8:44 AM EST [facility] Blood Venous blood specimen / Unknown Venipuncture / Unknown 04/19/2024 7:18 AM EST 04/19/2024 8:06 AM EST us Prabhu SELLERS LAB BLOOD ORDERABLES Final Resul t Performing Organization Address City/[facility]/ZIP Co de Phone Number [facility] [address] [place] [address], [place] [phone] * Lipase (04/19/2024 7:18 AM EST) Pathologist [facility] Lipase 36 13 - 75 unit/L LAB CHEMISTRY METHOD 04/19/2024 8:36 AM [facility] Blood Venous blood specimen / Unknown Venipuncture / Unknown 04/19/2024 7:18 AM EST 04/19/2024 8:06 AM EST Prabhu SELLERS LAB BLOOD ORDERABLES Final Resul t Performing Organization Address City/[facility]/ZIP Co de Phone Number [facility] [address] [place] [address], [place] [phone] * Comprehensive metabolic panel (04/19/2024 7:18 AM EST) [facility] Sodium 139 133 - 145 mmol/L LAB CHEMISTRY METHOD 04/19/2024 8:36 AM [facility] Potassium 3.7 3.5 - 5.5 mmol/L LAB CHEMISTRY METHOD 04/19/2024 8:36 AM [facility] Chloride 109 96 - 110 mmol/L LAB CHEMISTRY METHOD 04/19/2024 8:36 AM [facility] CO2 25 21 - 32 mmol/L LAB CHEMISTRY METHOD 04/19/2024 8:36 AM [facility] Anion Gap 5 3 - 11 LAB CHEMISTRY METHOD 04/19/2024 8:36 AM [facility] Glucose 88 70 - 100 mg/dL LAB CHEMISTRY METHOD 04/19/2024 8:36 AM [facility] BUN 10 5 - 25 mg/dL LAB CHEMISTRY METHOD 04/19/2024 8:36 AM [facility] Creatinine 0.60 0.50 - 1.10 mg/dL LAB CHEMISTRY METHOD 04/19/2024 8:36 AM [facility] eGFR 122 >=60 mL/min/1. 73m2 LAB CHEMISTRY METHOD 04/19/2024 8:36 AM [facility] Comment:Calculation based on the??Chronic Kidney Disease Epidemiology Collaboration (CKD-EPI) equation refit??without adjustment for race. BUN/Creatinine Ratio 16.7 LAB CHEMISTRY METHOD 04/19/2024 8:36 AM [facility] Calcium 9.4 8.5 - 10.5 mg/dL LAB CHEMISTRY METHOD 04/19/2024 8:36 AM [facility] AST (SGOT) 11 10 - 42 unit/L LAB CHEMISTRY METHOD 04/19/2024 8:36 AM [facility] ALT (SGPT) 20 10 - 60 unit/L LAB CHEMISTRY METHOD 04/19/2024 8:36 AM [facility] Alkaline Phosphatase 78 42 - 121 unit/L LAB CHEMISTRY METHOD 04/19/2024 8:36 AM [facility] Total Protein 6.6 6.0 - 8.0 g/dL LAB CHEMISTRY METHOD 04/19/2024 8:36 AM [facility] Albumin 3.8 3.2 - 5.0 g/dL LAB CHEMISTRY METHOD 04/19/2024 8:36 AM [facility] Total Bilirubin 0.6 0.0 - 1.4 mg/dL LAB CHEMISTRY METHOD 04/19/2024 8:36 AM [facility] Blood Venous blood specimen / Unknown Venipuncture / Unknown 04/19/2024 7:18 AM EST 04/19/2024 8:06 AM EST Prabhu SELLERS LAB BLOOD ORDERABLES Final Resul t [facility] [address] [place] [address], from Last 3 Months Insurance [facility] MEDIC[facility] Member Subscriber Plan / Payer (Ef fective 2023-Present) Name:Linda Oliveros Relation to Subscriber:Self Name:Linda Oliveros Payer ID:[id number] Group ID:[id number] Type:Not on file Address: [place] [address] [address] [id number] Advance Directives Documents on File Type Date Recorded 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 Do not modify or discontinue any currently active code status orders. Healthcare Agents on File Name Relationship Healthcare Agent Relationshi p Communication Kathya Tuttle [facility] Health Care Agent Care Teams Slasher Tender Relationship Specialty Start Date End Date Hailee Velazquez MD [address] [place] [phone] PCP - General Internal Medicine 04/19/24
--- OUTSIDE RECORDS SUMMARY | 2024-06-18 08:54 | XMS_ITS ---
Author Organization [facility] Address [address] [place] [phone] Phone Care Team Providers Care Mailing Clerk Name Role Phone Hailee Velazquez MD Primary Care Provider +1- [phone] [facility] - Transportation Status:Ongoing (Active) Start date:04/19/2024 Enrollment date:04/19/2024 Enrollment reason:Walk-in Related social drivers of health:Transportation Related program episode:Community Health Worker Program (Closed) Overview Community Health Worker Program - Transportation Service Episode Case Team Name Relationship Phone Stefan Dalal Community Health Worker(Respons ible Staff) Continued Care and Services Coordination
--- OUTSIDE RECORDS SUMMARY | 2024-06-18 08:54 | XMS_ITS ---
Author Organization [facility] Address [address] [place] [phone] Phone Care Team Providers Care Body And Fender Worker Name Role Phone Hailee Velazquez MD Primary Care Provider +1- [phone] [facility] - Food Insecurity Status:Ongoing (Active) Start date:04/19/2024 Enrollment date:04/19/2024 Enrollment reason:Walk-in Related social drivers of health:Food Risk Related program episode:Community Health Worker Program (Closed) Overview Community Health Worker Program - Food Insecurity Service Episode Case Team Name Relationship Phone Stefan Dalal Community Health Worker(Respons ible Staff) Continued Care and Services Coordination
--- NOTE | 2024-06-18 08:58 | MHC.OFFWIV ---
Intake Vital Signs 06/18/24 08:59 Height 5 ft 1 in Weight 129 lb 6 oz BMI 24.4 BP 108/70 Blood Pressure Location Lt brachial Position Sitting Pulse 78 Pulse Source Pulse Oximeter Temp 97.5 F Temp Source Temporal Artery Scan Pulse Oximetry (%) 99 Oxygen Delivery Method Room Air Intake Visit Reasons: EP ?Allergic reaction/not sure Intake Note: Pt presents to the office today for c/o lightheadedness, dizziness. Pt states when she woke up this morning she was nauseous, and felt like her throat was swelling. Patient Tobacco Use Status: Never used Tobacco Allergies ceftriaxone [CEFTRIAXONE] Allergy (Intermediate, Verified 06/18/24 09:01) HIVES amoxicillin [AMOXICILLIN] Allergy (Mild, Verified 06/18/24 09:01) RASH SEASONAL ALLERGIES Allergy (Unknown, Uncoded 06/18/24 09:01) UNKNOWN HPI EP ?Allergic reaction/not sure HPI Details This is a 33-year-old female patient who presents to the walk-in clinic today with report of allergic type symptoms in face, including itchy face/eyes, lips, and throat. She states that she used a new facial cream that she purchased yesterday, and may be having a reaction to it. She also reports a several day history of feeling fatigued, headache, and at times lightheaded. She states that her 1-year-old daughter recently had a virus but it was more GI-specific. She denies any fevers, however states that she has been feeling hot/cold. Denies shortness of breath, chest pain, palpitations. [facility] Medical History Acute respiratory disease Depression Anxiety PTSD (post-traumatic stress disorder) Social History Alcohol intake: never Patient Tobacco Use Status: Never used Tobacco Substance Use Type: Marijuana Review of Systems Const All systems reviewed & are unremarkable except as noted in HPI and below Physical Exam Vital Signs: Last Vital Signs Temp 97.5 F 06/18/24 08:59 Pulse 78 06/18/24 08:59 BP 108/70 06/18/24 08:59 Pulse Ox 99 06/18/24 08:59 Oxygen Delivery Method Room Air 06/18/24 08:59 BMI result Body Mass Index 24.4 Const General: cooperative, no acute distress and anxious Orientation/consciousness: patient oriented x3 Limitations: no limitations HEENT Head: Yes normal to inspection Ears: hearing grossly normal bilaterally General nose exam: Normal external nose present, Normal nares present and Normal nasal mucous membranes and turbinates present Face and sinus: Yes normal facial exam and Yes sinuses nontender Mouth: Normal oral and palatal mucosa present, tongue normal, oropharynx normal and lip abnormal (lips are mildly swollen) Throat: Yes posterior oropharynx normal Neck Neck: Yes no lymphadenopathy Resp Effort & Inspection: normal respiratory effort Auscultation: clear to auscultation bilaterally Cardio Rate: regular rate Rhythm: regular rhythm Skin General skin exam: no rashes or lesions noted Neuro General: patient oriented x3 and moves all extremities Extrem General: Yes normal to inspection, Yes capillary refill normal and Yes no clubbing, cyanosis or edema Psych Appearance: grossly normal Mental Status: mental status grossly normal Speech and movement: Normal speech and movement present Affect: Anxious affect present Attitude: cooperative Insight: Fair insight present (Psych) Assessment & Plan Assessment & Plan (1) Allergic reaction: Code(s): T78.40XA - Allergy, unspecified, initial encounter Qualifiers: Encounter type: initial encounter Qualified Code(s): T78.40XA - Allergy, unspecified, initial encounter Plan: Possible allergic reaction to makeup product. Advised patient to stop using this. She does have an EpiPen available, and we reviewed indications for use of this if these symptoms were to arise. At this point, I will prescribe her a short course of prednisone to see if this alleviates her allergic symptoms. We reviewed indications, use, possible side effects of this medication. If she does not improve, or symptoms worsen, patient should go to the emergency department for evaluation. She verbalizes understanding and agrees to plan. (2) Upper respiratory infection: Code(s): J06.9 - Acute upper respiratory infection, unspecified Qualifiers: URI type: unspecified viral URI Qualified Code(s): J06.9 - Acute upper respiratory infection, unspecified Plan: She also has viral URI symptoms. Cov/flu/RSV swab was obtained today in the office, and patient aware she will be notified of these results once they are available. I encouraged adequate rest, hydration, healthy food intake. May take [id number] Tylenol/Mucinex as needed. Of note, patient appeared very stressed/anxious at today's visit. States that she is a single mother, and is having a hard time balancing everything. Additionally, her phone line was disconnected. I had community RN Dain visit with patient to discuss resources available to her. They discussed establishing care with a PCP and resources available through her insurance [employer]. Orders: Orders SARS-CoV2/FLU/RSV Today J06.9 - Acute upper respiratory infection, unspecified Medications: New prednisone Take 2 tabs daily for 3 days. 40 mg (2 x 20 mg) PO DAILY 3 days 6 tabs 0RF T78.40XA - Allergy, unspecified, initial encounter Coding Level of Care Code Est Pt Level 4 (66516) Diagnoses Allergic reaction, initial encounter T78.40XA Encounter type: initial encounter Viral upper respiratory tract infection J06.9 URI type: unspecified viral URI
[2024-06-18 08:59] VITALS: BP 108/70; PULSE 78; TEMP 36.4; O2SAT 99; BMI 24.4
== END 2024-06-18 09:43 | disposition home or self-care (01) ==
PROVIDERS: PCP Internal Medicine; Visit Provider Nurse Practitioner Family
DX: T78.40XA Allergy, unspecified, initial encounter (principal); J06.9 Acute upper respiratory infection, unspecified

== ENCOUNTER 2024-06-21 10:27 | Outpatient (AMB) | payer OTHER, SELFPAY ==
--- NOTE | 2024-06-21 10:29 | AM.OFFWIN_ITS ---
Intake Vital Signs 06/21/24 10:37 Height 5 ft 1 in Weight 127 lb BMI 24.0 BP 118/70 Blood Pressure Location Rt brachial Position Sitting Pulse 92 Pulse Source Pulse Oximeter Pulse Oximetry (%) 98 Oxygen Delivery Method Room Air Intake Visit Reasons: EP Allergies not better, bilat calf swelling Intake Note: Patient here for allergies that have not improved, she is also having bilat swelling/numbness in calf area that started 2 days ago. Patient Tobacco Use Status: Never used Tobacco Allergies ceftriaxone [CEFTRIAXONE] Allergy (Intermediate, Verified 06/21/24 10:38) HIVES amoxicillin [AMOXICILLIN] Allergy (Mild, Verified 06/21/24 10:38) RASH SEASONAL ALLERGIES Allergy (Unknown, Uncoded 06/21/24 10:38) UNKNOWN Do you need a note to return to daycare/school/sports/work: No HPI HPI Comments History of Present Illness Details 33 y/o Female patient who presents to [facility] walk in clinic with c/o Allergic rhinitis symptoms that started few days ago. She was seen here 06/18 for similar concern and was given Prednisone. Pt reports no much improvement. Today Pt c/o B/L swelling and pain. Reports pain with walking. FOR[facility]LY [facility], [facility] Medical History (Updated 06/21/24 @ 11:03 by Rhoda Barrera NP) Allergic rhinitis Acute respiratory disease Depression Anxiety PTSD (post-traumatic stress disorder) Social History Alcohol intake: never Patient Tobacco Use Status: Never used Tobacco Substance Use Type: Marijuana Review of Systems Const All systems reviewed & are unremarkable except as noted in HPI and below Physical Exam Vital Signs: Last Vital Signs Pulse 92 06/21/24 10:37 BP 118/70 06/21/24 10:37 Pulse Ox 98 06/21/24 10:37 Oxygen Delivery Method Room Air 06/21/24 10:37 BMI result Body Mass Index 24.0 Const General: no acute distress Orientation/consciousness: patient oriented x3 HEENT Head: Yes normocephalic Ears: external ears normal and TM abnormal with fluid behind the TM General nose exam: Abnormal mucous membranes and turbinates present boggy and erythematous Face and sinus: Yes sinuses nontender Mouth: moist mucous membranes Throat: Yes uvula midline Resp Effort & Inspection: normal respiratory effort Auscultation: clear to auscultation bilaterally Cardio Heart sounds: S1 normal heart sound present and S2 normal heart sound present Neuro General: patient oriented x3, gait normal and moves all extremities Extrem Right lower extremity: lower leg Details: no edema; no erythema, no tenderness, no ecchymosis and no crepitus Left lower extremity: lower leg Details: no edema; no erythema, no tenderness, no ecchymosis and no crepitus Psych Speech and movement: Normal speech and movement present Affect: Anxious affect present Attitude: cooperative Insight: Fair insight present (Psych) Assessment & Plan Assessment & Plan (1) Allergic rhinitis: Code(s): J30.9 - Allergic rhinitis, unspecified Qualifiers: Allergic rhinitis seasonality: unspecified Allergic rhinitis trigger: unspecified Qualified Code(s): J30.9 - Allergic rhinitis, unspecified Plan: Ordered Zyrtec, Possibly Seasonal allergies No evidence of swelling in the lower extremities. Medications: New cetirizine (Zyrtec) 10 mg PO DAILY 30 tabs 0RF J30.9 - Allergic rhinitis, unspecified Coding Level of Care Code Est Pt Level 4 (11966) Diagnoses Allergic rhinitis, unspecified seasonality, unspecified trigger J30.9 Allergic rhinitis seasonality: unspecified Allergic rhinitis trigger: unspecified Time Spent (min) 20
[2024-06-21 10:37] VITALS: BP 118/70; PULSE 92; O2SAT 98; BMI 24.0
--- OUTSIDE RECORDS SUMMARY | 2024-06-21 11:57 | XMS_ITS ---
Author Organization [facility] Address [address] [place] [id number] Phone Care Team Providers Care Psychologist Social Name Role Phone Hailee Velazquez MD Primary Care Provider [phone] [facility] - Transportation Status:Ongoing (Active) Start date:04/19/2024 Enrollment date:04/19/2024 Enrollment reason:Walk-in Related social drivers of health:Transportation Related program episode:Community Health Worker Program (Closed) Overview Community Health Worker Program - Transportation Service Episode Case Team Name Relationship Phone Stefan Dalal Community Health Worker(Respons ible Staff) Continued Care and Services Coordination
--- OUTSIDE RECORDS SUMMARY | 2024-06-21 11:57 | XMS_ITS | Clinical Summary ---
Author Organization [facility] Address [address] [place] [address] Phone Care Team Providers Care Herb Grower Name Role Phone Hailee Velazquez MD Primary Care Provider [phone] Allergies Active Allergy Reactions Criticality Noted Date Comments Penicillins Rash 05/18/2024 Medications tiZANidine (ZANAFLEX) 4 mg tablet Take 1 tablet (4 mg total) by mouth every 8 (eight) hours if needed for muscle spasms for up to 10 days. 30 tablet 05/19/2024 Active LORazepam (ATIVAN) 0.5 mg tablet Take 0.5 tablets (0.25 mg total) by mouth 1 (one) time each day if needed for anxiety. for anxiety Max Daily Amount: 0.25 mg 05/19/2024 Active lamoTRIgine (LaMICtal) 25 mg tablet Take 1 tablet (25 mg total) by mouth 2 (two) times a day. 60 each 2 05/20/2024 Active butalbital-acet aminophen-caffe ine (FIORICET, ESGIC) 50-325-40 mg per tablet Take 1 tablet by mouth every 4 (four) hours if needed for headaches. 15 tablet 05/20/2024 Active Active Problems Problem Noted Date Diagnosed Date Seizure (CMS/HCC V24, CMS/HCC V28) 05/18/2024 Encounters Date Type Department Care Team Description 05/18/2024 1:30 PM EDT - 05/20/2024 6:23 PM EDT Hospital Encounter [facility] Intermediate Care Unit [address] [place] [phone] Kimani Vera MD Ishtiaq, Rizwan, MD Bell, Alistair A, MD Other migraine without status migrainosus, not intractable (Primary Dx); Absence seizure (CMS/HCC V24, CMS/HCC V28); Atypical seizure (CMS/HCC V24, CMS/HCC V28) Discharge Disposition: Home or Self Care 04/26/2024 Telephone [facility] [address] [place] [address] Katlin, Ekellson 04/19/2024 6:35 AM EST - 04/19/2024 12:[address] [facility] Emergency [address] [place] [address] Kimani Vera MD Chest pain, unspecified type (Primary Dx); Palpitation Discharge Disposition: Home or Self Care 04/19/2024 Community Care Management [facility] [address] [place] [address] Katlin, Ekellson from Last 3 Months Medical History Medical [...] Record ed Within the last 3 months, tobin w many times did you visit the [...] care for your loved ones. For example, caregivers homecare or elderly care for an older adult? 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 Not on file Not [...] Hemoglobin and hematocrit (05/20/2024 1:33 PM EDT) [facility] Hemoglobin 12.4 11.5 - 16.0 g/dL LAB HEMETOLOGY METHOD 05/20/2024 2:01 PM EDT [facility] Hematocrit 39.6 35.0 - 47.0 % LAB HEMETOLOGY METHOD 05/20/2024 2:01 PM EDT [facility] Blood Venous blood specimen / Unknown Venipuncture / Unknown 05/20/2024 1:33 PM EDT 05/20/2024 1:56 PM EDT us Mick Ramirez MD LAB BLOOD ORDERABLES Final Re sult [facility] [address] [place] [address], * Troponin I high sensitivity (05/20/2024 6:42 AM EDT) Only the most recent of3 resultswithin the time period is included. [facility] High Sensitivity Troponin I 4 <=54 ng/L LAB CHEMISTRY METHOD 05/20/2024 7:33 AM EDT [facility] Blood Venous blood specimen / Unknown Venipuncture / Unknown 05/20/2024 6:42 AM EDT 05/20/2024 6:56 AM EDT Narrative [facility] - 05/20/2024 7:33 AM EDT High levels of biotin in samples may falsely decrease hsTroponin values. ??Use caution when interpreting hsTroponin results in patients taking biotin who exhibit renal impairment (eGFR <60) or in patients taking more than 20 mg/day of biotin. Magdy SELLERS LAB BLOOD ORDERABLES Final Res ult [facility] [address] [place] [address], [place] [phone] * POCT Glucose, blood (05/20/2024 4:03 AM EDT) [facility] Glucose POCT 91 70 - 100 mg/dL 05/20/2024 4:04 AM EDT [facility] Blood Capillary blood specimen / Unknown 05/20/2024 4:03 AM EDT 05/20/2024 4:05 AM EDT Mick Ramirez MD LAB POINT OF CARE TE ST DOCKED DEVICE UNSOLICITED RESULTS Final Result Performing Organization Address [facility]/ZIP Co de Phone Number [facility] [address] [place] [address], [place] [phone] * ECG 12 lead (05/20/2024 3:18 AM EDT) Only the most recent of5 resultswithin the time period is included. [facility] Ventricular Rate ECG 67 BPM GEMUSE Atrial Rate 67 BPM GEMUSE P-R Interval 138 ms GEMUSE QRS Duration 82 ms GEMUSE Q-T Interval 412 ms GEMUSE QTc 435 ms GEMUSE P Wave [place] 25 degrees GEMUSE R [place] 59 degrees GEMUSE T [place] 68 degrees GEMUSE ECG Interpretation Normal sinus rhythm with sinus arrhythmia Normal ECG When compared with ECG of 19-MAY-2024 09:51, Nonspecific T wave abnormality no longer evident in Anterolateral leads Confirmed by MD Walt, [place] ([id number]) on 05/20/2024 10:15:31 PM GEMUSE 05/20/2024 3:18 AM EDT 05/20/2024 10:15 PM EDT Bandar Pompa MD ECG ORDERABLES Final Result GEMUSE * Routine EEG (05/19/2024 4:34 PM EDT) Santi Cummings MD - 05/19/2024 11:45 PM EDT Santi [...] PRN, Mick Ramirez MD, 4 mg at 05/20/[address] ??tiZANidine (ZANAFLEX) tablet 4 mg, 4 mg, oral, q8h PRN, Mick Ramirez MD, 4 mg at 05/19/24 1378 Recording Techniques A digital video EEG was [...] a normal routine EEG recording in the ubkzy-[id number] states. ??There were no seizures, periodic patterns, [...] Signed Date: 05/19/2024 15:09 ET Workstation ID: [id number] Transcribed By: Self Edit Transcribed Date: 05/19/2024 [...] Signed Date: 05/19/2024 15:09 ET Workstation ID: [id number] Transcribed By: Self Edit Transcribed Date: 05/19/2024 15:04 ET Mick Ramirez MD IMG MRI PROCEDURES Final Resu lt * ECG-Annotated (05/19/2024) Only the most recent of3 resultswithin the time period is included. us Provider Onbase ECG ORDERABLES Final Result * (ABNORMAL) Drug abuse screen 8a panel, urine (05/18/2024 11:36 PM EDT) Amphetamine Screen, Ur Negative Negative [facility] Comment:Certain OTC medicati ons containing ephedrine, phenylephrine, pseudoephedrine and phenylpropanolamine can cause false positive results. Barbiturate Screen, Ur Positive(A ) Negative LAB CHEMISTRY METHOD 5 12:44 AM EDT [facility] Benzodiazepine Screen, Ur Negative Negative LAB CHEMISTRY METHOD 5 12:44 AM [facility] Cocaine Screen, Ur Negative Negative LAB CHEMISTRY METHOD 12:44 AM [facility] Opiate Screen, Ur Negative Negative LAB CHEMISTRY METHOD 12:44 AM [facility] Cannabinoid (THC) Screen, Ur Positive(A ) Negative LAB CHEMISTRY METHOD 03/12/202 5 12:44 AM EDT [facility] Comment:Specimens from patie nts taking pantoprazole sodium (Protonix) have been shown to produce false positive results. Oxycodone Screen, Ur Negative Negative LAB CHEMISTRY METHOD 5 12:44 AM EDT [facility] Fentanyl, Ur Negative Negative LAB CHEMISTRY METHOD 5 12:44 AM EDT [facility] Urine Urine specimen obtained by clean catch procedure / Unknown Non-blood Collection / Unknown 05/18/2024 11:36 PM EDT 05/18/2024 11:41 PM EDT Narrative [facility] - 05/19/2024 12:44 AM EDT Assay cutoffs: Amphetamines ? 1000 ng/mL Barbiturates ?200 ng/mL Benzodiazepines ?? 200 ng/mL Cocaine ? 300 ng/mL Fentanyl ?1 ng/mL Opiates ? 300 ng/mL Oxycodone ? 100 ng/mL THC ?50 ng/mL Semi-quantitative assay for screening purposes only. Unconfirmed screening result should not be used for non-medical purposes. *ALTERNATE METHOD CONFIRMATION DONE UPON REQUEST ONLY* Kimani Vera MD LAB URINE ORDERABLES Final Result [facility] [address] [place] [address], * Yellow urine no additive (05/18/2024 11:36 PM EDT) Extra Tube Hold for add-ons. 05/19/2024 1:02 AM EDT [facility] Comment:Auto resulted. Urine Urine specimen obtained by clean catch procedure / Unknown Non-blood Collection / Unknown 05/18/2024 11:36 PM EDT 05/18/2024 11:41 PM EDT us Alexandr Mayers MD LAB URINE ORDERABLES Final Res ult [facility] [address] [place] [address], [place] [phone] * Urinalysis with reflex microscopic (05/18/2024 3:15 PM EDT) Specific [place] Urine 1.029 1.003 - 1.030 LAB URINALYSIS - AUTOMATED METHOD 05/18/2024 4:03 PM [facility] pH, Urine 6.0 5.0 - 8.0 pH LAB URINALYSIS - AUTOMATED METHOD 05/18/2024 4:03 PM [facility] Leukocytes, Urine Negative Negative LAB URINALYSIS - AUTOMATED METHOD 05/18/2024 4:03 PM [facility] Nitrite, Urine Negative Negative LAB URINALYSIS - AUTOMATED METHOD 05/18/2024 4:03 PM [facility] Protein, Urine Negative <=Trace mg/dL LAB URINALYSIS - AUTOMATED METHOD 05/18/2024 4:03 PM [facility] Glucose, Urine Negative Negative mg/dL LAB URINALYSIS - AUTOMATED METHOD 05/18/2024 4:03 PM [facility] Ketones, Urine Negative Negative mg/dL LAB URINALYSIS - AUTOMATED METHOD 05/18/2024 4:03 PM [facility] Urobilinogen, Urine 0.2 0.2 - 1.0 mg/dL LAB URINALYSIS - AUTOMATED METHOD 05/18/2024 4:03 PM [facility] Bilirubin, Urine Negative Negative LAB URINALYSIS - AUTOMATED METHOD 05/18/2024 4:03 PM [facility] Blood, Urine Negative Negative LAB URINALYSIS - AUTOMATED METHOD 05/18/2024 4:03 PM EDT [facility] Urine Urine specimen obtained by clean catch procedure / Unknown Non-blood Collection / Unknown 05/18/2024 3:15 PM EDT 05/18/2024 3:39 PM EDT Kimani Vera MD LAB URINE ORDERABLES Final Result Performing Organization Address [facility]/ZIP Co de Phone Number [facility] [address] [place] [address], [place] [phone] * Chlamydia trachomatis and Neisseria gonorrhoeae molecular study (05/18/2024 3:15 PM EDT) Neisseria gonorrhoeae PCR Negative Negative LAB MOLECULAR DIAGNOSTICS METHOD 05/19/2024 9:41 AM EDT [facility] Chlamydia trachomatis PCR Negative Negative LAB MOLECULAR DIAGNOSTICS METHOD 05/19/2024 9:41 AM EDT [facility] Swab Urine specimen obtained by clean catch procedure / Unknown Non-blood Collection / Unknown 05/18/2024 3:15 PM EDT 05/18/2024 3:38 PM EDT Kimani Vera MD LAB MICROBIOLOGY - GENERAL ORDERABLES Final Result Performing Organization Address [facility] de Phone Number [facility] [address] [place] [address], [place] [phone] * CT Head wo Contrast (05/18/2024 3:10 PM EDT) Anatomical Region Laterality Modality Head and Neck Computed Tomogra phy 05/18/2024 3:21 PM EDT Impressions 05/18/2024 3:22 PM EDT NO ACUTE INTRACRANIAL ABNORMALITY. -------- FINAL REPORT -------- Dictated By: Bulmaro Harper Dictated Date: 05/18/2024 15:21 ET Assigned Physician: Bulmaro Harper Reviewed and Electronically Signed By: Bulmaro Harper Signed Date: 05/18/2024 15:22 ET Workstation ID: [id number] Transcribed By: Self Edit Transcribed Date: 05/18/2024 [...] Signed Date: 05/18/2024 15:22 ET Workstation ID: [id number] Transcribed By: Self Edit Transcribed Date: 05/18/2024 15:21 ET Kimani Vera MD IMG CT PROCEDURES Final Res ult * POC , urine manually resulted (05/18/2024 2:00 PM EDT) HCG, Ur POC Negative Negative POC hCG Int QC Pass? Yes Yes EXPIRATION DATE POC 2025-08-05 LOT NUMBER POC [id number] Urine Urine specimen obtained by clean catch procedure / Unknown 05/18/2024 2:00 PM EDT us Kimani Vera MD POINT OF CARE TEST ENTER/ED IT ORDERABLES Final Result * (ABNORMAL) CBC auto differential (05/18/2024 1:24 PM EDT) Only the most recent of2 resultswithin the time period is included. [facility] Signature WBC 8.8 4.8 - 10.8 K/mcL LAB HEMETOLOGY METHOD 05/18/2024 2:[facility] RBC 4.80 3.80 - 4.80 M/mcL LAB HEMETOLOGY METHOD 05/18/2024 2:[facility] Hemoglobin 13.3 11.5 - 16.0 g/dL LAB HEMETOLOGY METHOD 05/18/2024 2:01 [facility] Hematocrit 42.8 35.0 - 47.0 % LAB HEMETOLOGY METHOD 05/18/2024 2:01 [facility] MCV 88.4 79.0 - 98.0 FL LAB HEMETOLOGY METHOD 05/18/2024 2:01 [facility] MCH 27.5 27.0 - 32.0 pcg LAB HEMETOLOGY METHOD 05/18/2024 2:01 PM [facility] MCHC 31.1(L) 32.0 - 37.0 g/dL LAB HEMETOLOGY METHOD 05/18/2024 2:01 PM [facility] RDW 13.2 11.0 - 15.0 % LAB HEMETOLOGY METHOD 05/18/2024 2:01 PM [facility] Platelets 211 130 - 400 K/mcL LAB HEMETOLOGY METHOD 05/18/2024 2:01 PM [facility] MPV 12.0(H) 7.0 - 11.0 FL LAB HEMETOLOGY METHOD 05/18/2024 2:01 [facility] NRBC 0.0 <1.0 % LAB HEMETOLOGY METHOD 05/18/2024 2:01 PM [facility] NRBC Absolute 0.00 <0.10 K/mcL LAB HEMETOLOGY METHOD 05/18/2024 2:01 PM [facility] Neutrophils Relative 69.3 % LAB HEMETOLOGY METHOD 05/18/2024 2:01 PM [facility] Lymphocytes Relative 19.6 % LAB HEMETOLOGY METHOD 05/18/2024 2:01 PM [facility] Monocytes Relative 5.8 % LAB HEMETOLOGY METHOD 05/18/2024 2:01 PM [facility] Eosinophils Relative 4.2 % LAB HEMETOLOGY METHOD 05/18/2024 2:01 PM [facility] Basophils Relative 0.6 % LAB HEMETOLOGY METHOD 05/18/2024 2:01 PM [facility] Immature Granulocytes Relative 0.5 % LAB HEMETOLOGY METHOD 05/18/2024 2:01 PM [facility] Neutrophils Absolute 6.08 1.50 - 7.00 K/mcL LAB HEMETOLOGY METHOD 05/18/2024 2:01 PM [facility] Lymphocytes Absolute 1.72 1.00 - 5.00 K/mcL LAB HEMETOLOGY METHOD 05/18/2024 2:01 PM [facility] Monocytes Absolute 0.51 0.20 - 1.00 K/mcL LAB HEMETOLOGY METHOD 05/18/2024 2:01 PM [facility] Eosinophils Absolute 0.37 0.00 - 0.50 K/mcL LAB HEMETOLOGY METHOD 05/18/2024 2:01 PM [facility] Basophils Absolute 0.05 0.00 - 0.20 K/mcL LAB HEMETOLOGY METHOD 05/18/2024 2:01 PM EDT [facility] Immature Granulocytes Absolute 0.04(H) 0.00 - 0.03 K/mcL LAB HEMETOLOGY METHOD 05/18/2024 2:01 PM EDT [facility] Blood Venous blood specimen / Unknown Venipuncture / Unknown 05/18/2024 1:24 PM EDT 05/18/2024 1:52 PM EDT Kimani Vera MD LAB BLOOD ORDERABLES Final Result Performing Organization Address [facility] de Phone Number [facility] [address] [place] [address], * Prolactin (05/18/2024 1:24 PM EDT) Prolactin 11.80 See Comment ng/mL LAB CHEMISTRY METHOD 05/18/2024 2:50 PM EDT [facility] Comment: Prolactin Reference Ranges (ng/mL) ??Non ?2.2 - ??30.3 ? 8.1 - 347.6 ??Postmenopausal 0.7 - ??31.5 Blood Venous blood specimen / Unknown Venipuncture / Unknown 05/18/2024 1:24 PM EDT 05/18/2024 1:52 PM EDT Kimani Vera MD LAB BLOOD ORDERABLES Final Result Performing Organization Address [facility] de Phone Number [facility] [address] [place] [address], * Magnesium (05/18/2024 1:24 PM EDT) Only the most recent of2 resultswithin the time period is included. Magnesium 1.9 1.9 - 2.6 mg/dL LAB CHEMISTRY METHOD 05/18/2024 2:31 PM EDT [facility] Blood Venous blood specimen / Unknown Venipuncture / Unknown 05/18/2024 1:24 PM EDT 05/18/2024 1:52 PM EDT Kimani Vera MD LAB BLOOD ORDERABLES Final Result Performing Organization Address City/[facility]/ZIP Co de Phone Number [facility] [address] [place] [address], [place] [phone] * Ethanol (05/18/2024 1:24 PM EDT) Pathologist [facility] Ethanol Level 3 0 - 10 mg/dL LAB CHEMISTRY METHOD 05/18/2024 5:38 PM EDT [facility] Blood Venous blood specimen / Unknown Venipuncture / Unknown 05/18/2024 1:24 PM EDT 05/18/2024 1:52 PM EDT Kimani Vera MD LAB BLOOD ORDERABLES Final Result Performing Organization Address City/[facility]/ZIP Co de Phone Number [facility] [address] [place] [address], [place] [phone] * Basic metabolic panel (05/18/2024 1:24 PM EDT) Sodium 143 133 - 145 mmol/L LAB CHEMISTRY METHOD 05/18/2024 2:31 PM EDT [facility] Potassium 4.0 3.5 - 5.5 mmol/L LAB CHEMISTRY METHOD 05/18/2024 2:31 PM EDT [facility] Chloride 109 96 - 110 mmol/L LAB CHEMISTRY METHOD 05/18/2024 2:31 PM EDT [facility] CO2 26 21 - 32 mmol/L LAB CHEMISTRY METHOD 05/18/2024 2:31 PM EDT [facility] Anion Gap 8 3 - 11 LAB CHEMISTRY METHOD 05/18/2024 2:31 PM EDT [facility] Glucose 88 70 - 100 mg/dL LAB CHEMISTRY METHOD 05/18/2024 2:31 PM EDT [facility] BUN 9 5 - 25 mg/dL LAB CHEMISTRY METHOD 05/18/2024 2:31 PM EDT [facility] Creatinine 0.57 0.50 - 1.10 mg/dL LAB CHEMISTRY METHOD 05/18/2024 2:31 PM EDT [facility] eGFR 123 >=60 mL/min/1. 73m2 LAB CHEMISTRY METHOD 05/18/2024 2:31 PM EDT [facility] Comment:Calculation based on the??Chronic Kidney Disease Epidemiology Collaboration (CKD-EPI) equation refit??without adjustment for race. BUN/Creatinine Ratio 15.8 LAB CHEMISTRY METHOD 05/18/2024 2:31 PM EDT [facility] Calcium 8.9 8.5 - 10.5 mg/dL LAB CHEMISTRY METHOD 05/18/2024 2:31 PM EDT [facility] Blood Venous blood specimen / Unknown Venipuncture / Unknown 05/18/2024 1:24 PM EDT 05/18/2024 1:52 PM EDT us Kimani Vera MD LAB BLOOD ORDERABLES Final Result [facility] [address] [place] [address], * CARDIAC HOLTER MONITOR (3RD DEMOCRAT REPORT [...] LAB COAGULATION METHOD 04/19/2024 9:09 AM EST [facility] Blood Venous blood specimen / Unknown Venipuncture / Unknown 04/19/2024 8:44 AM EST 04/19/2024 8:52 AM EST Narrative [facility] - 04/19/2024 9:09 AM EST D-Dimer <230 ng/mL (D-Dimer units) is the threshold for exclusion of DVT/PE. D-Dimer may be elevated in: Critically ill, severely infected, trauma patients, DIC, acute CVA, acute MD, unstable angina, AF, old age, , and smoking. D-Dimer may be decreased with: Initiation of heparin therapy and oral anticoagulants. Kimani Vera MD LAB BLOOD ORDERABLES Final Result [facility] [address] [place] [address], * XR Chest 2 Views (04/19/2024 7:37 AM EST) Anatomical Region Laterality Modality Body Radiographic Annabelle ging 04/19/2024 7:45 AM EST Impressions 04/19/2024 7:47 AM EST No acute chest disease -------- FINAL REPORT -------- Dictated By: Waylon Zhang Dictated Date: 04/19/2024 07:45 ET Assigned Physician: Waylon Zhang Reviewed and Electronically Signed By: Waylon Zhang Signed Date: 04/19/2024 07:47 ET Workstation ID: [id number] Transcribed By: Self Edit Transcribed Date: 04/19/2024 [...] Signed Date: 04/19/2024 07:47 ET Workstation ID: [id number] Transcribed By: Self Edit Transcribed Date: 04/19/2024 07:45 ET us Prabhu SELLERS IMG XR PROCEDURES Final Result * B-type natriuretic peptide (04/19/2024 7:18 AM EST) BNP <2 <=100 pcg/mL LAB CHEMISTRY METHOD 04/19/2024 8:44 AM EST [facility] Blood Venous blood specimen / Unknown Venipuncture / Unknown 04/19/2024 7:18 AM EST 04/19/2024 8:06 AM EST us Prabhu SELLERS LAB BLOOD ORDERABLES Final Resul t Performing Organization Address [facility]/ZIP Co de Phone Number [facility] [address] [place] [address], [place] [phone] * Lipase (04/19/2024 7:18 AM EST) Lipase 36 13 - 75 unit/L LAB CHEMISTRY METHOD 04/19/2024 8:36 AM [facility] Blood Venous blood specimen / Unknown Venipuncture / Unknown 04/19/2024 7:18 AM EST 04/19/2024 8:06 AM EST Prabhu SELLERS LAB BLOOD ORDERABLES Final Resul t Performing Organization Address [facility]/ZIP Co de Phone Number [facility] [address] [place] [address], [place] [phone] * Comprehensive metabolic panel (04/19/2024 7:18 AM EST) Sodium 139 133 - 145 mmol/L LAB CHEMISTRY METHOD 04/19/2024 8:36 AM [facility] Potassium 3.7 3.5 - [...] AM [facility] Total Bilirubin 0.6 0.0 - 1.4 mg/dL LAB CHEMISTRY METHOD 04/19/2024 8:36 AM [facility] Blood Venous blood specimen / Unknown Venipuncture / Unknown 04/19/2024 7:18 AM EST 04/19/2024 8:06 AM EST us Prabhu SELLERS LAB BLOOD ORDERABLES Final Resul t [facility] [address], [place] [address] [phone] from Last 3 Months Insurance [facility] MEDIC[facility] Member Subscriber Plan / Payer (Ef fective 2023-Present) Name:Linda Oliveros Relation to Subscriber:Self Name:Linda Oliveros Payer ID:[id number] Group ID:[id number] Type:Not on file Address: [address] [place] [id number] Advance Directives Documents on File Type Date Recorded 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
--- OUTSIDE RECORDS SUMMARY | 2024-06-21 11:57 | XMS_ITS ---
Author Organization [facility] Address [address] [place] [phone] Phone Care Team Providers Care Right Of Way Maintenance Supervisor Name Role Phone Hailee Velazquez MD Primary Care Provider [phone]- [phone] [facility] - Food Insecurity Status:Ongoing (Active) Start date:04/19/2024 Enrollment date:04/19/2024 Enrollment reason:Walk-in Related social drivers of health:Food Risk Related program episode:Community Health Worker Program (Closed) Overview Community Health Worker Program - Food Insecurity Service Episode Case Team Name Relationship Phone Stefan Dalal Community Health Worker(Respons ible Staff) Continued Care and Services Coordination
== END 2024-06-21 11:16 | disposition home or self-care (01) ==
PROVIDERS: PCP Internal Medicine; Visit Provider Nurse Practitioner Family
DX: J30.9 Allergic rhinitis, unspecified (principal)

== ENCOUNTER → 2024-06-21 10:27 | Outpatient (BNVA) | payer OTHER, SELFPAY | PROVIDERS: PCP Internal Medicine; Visit Provider Nurse Practitioner Family | DX: J30.9 Allergic rhinitis, unspecified (principal) | CPT/HCPCS: 99212 ==

== ENCOUNTER 2024-11-24 09:58 | Outpatient (AMB) | payer OTHER, SELFPAY ==
[2024-11-24 10:02] VITALS: BP 118/68; PULSE 95; TEMP 36.2; O2SAT 99; BMI 23.8
--- NOTE | 2024-11-24 10:02 | MHC.PC.OV ---
Vital Signs 11/24/24 10:02 Height 5 ft 1 in Weight 126 lb BMI 23.8 BP 118/68 Blood Pressure Location Rt brachial Position Sitting Pulse 95 Pulse Source Pulse Oximeter Temp 97.1 F Temp Source Temporal Artery Scan Pulse Oximetry (%) 99 Oxygen Delivery Method Room Air Intake Visit Reasons: new patient Allergies ceftriaxone (CEFTRIAXONE) Allergy (Intermediate, Verified 11/24/24 10:09) HIVES amoxicillin (AMOXICILLIN) Allergy (Mild, Verified 11/24/24 10:09) RASH SEASONAL ALLERGIES Allergy (Unknown, Uncoded 11/24/24 10:09) UNKNOWN Medication List - Last Reconciled 11/24/24 by Hector Rodriguez MD cetirizine (Zyrtec) 10 mg PO DAILY epinephrine (EpiPen 2-Zachary) 0.3 mg (0.3 mL) IM Q10M PRN ibuprofen 600 mg PO Q8H PRN lorazepam mg PO Tobacco use date assessed: 11/24/24 Dental Screening Dental Screen Date: 11/24/24 Did you have a dental visit in the last 12 months?: Yes Did you have a dental problem in the last 6 months where you did not have access to dental care?: No Was dental information given to patient?: Patient has dentist HPI HPI Comments History of Present Illness Details The patient is a 34-year-old female presenting for a checkup and to address concerns related to her ongoing medical conditions, including anxiety and panic disorders, and to discuss medication management. The patient has a history of severe anxiety disorder and panic disorder, which have been managed with medications such as Ativan and Klonopin in the past. She reports that these medications have been effective in controlling her symptoms, but she has been without them for three months, leading to increased anxiety and panic attacks. She describes episodes of panic attacks that can be debilitating, causing her to feel nauseous and lose her appetite. The patient also reports symptoms consistent with Attention Deficit Hyperactivity Disorder (ADHD), including difficulty focusing and completing tasks. She has not been formally treated for ADHD but has considered medications like Adderall based on recommendations from others with similar symptoms. Additionally, the patient has a history of fibromyalgia, which causes severe pain and has been managed with opiods in the past. She also experiences migraines with aura, which are triggered by bright lights and can cause nausea. The patient has a history of seizures, for which she was evaluated and treated with medication temporarily. She has not had recent seizures but remains concerned about this condition. She reports insomnia, which she attributes to her anxiety, and states that her thoughts are excessively active, preventing restful sleep. Gastrointestinal issues include gastroesophageal reflux disease (GERD) and peptic ulcer disease, which have been problematic in the past. She has undergone a colonoscopy due to dietary issues, such as rice getting stuck in her intestines. [facility] Medical History Allergic rhinitis Acute respiratory disease Depression Anxiety PTSD (post-traumatic stress disorder) Family History (Updated 11/24/24 @ 10:15 by Tiana Armando CMA) Paternal Grandmother Breast cancer Father Substance abuse Mental health disorder Social History (Updated 11/24/24 @ 10:13 by Tiana Armando CMA) Household Members: Children Housing: Apartment Alcohol intake: current Alcohol intake frequency: holidays/special occasions only Patient Tobacco Use Status: Current someday Tobacco user e-Cigarette/Vaping Use: Never Used Substance Use Type: Marijuana service: No Current occupational status: employed Cognitive needs: No Hearing needs: No Vision needs: Yes Questionnaire PHQ-9 Over the last 2 weeks, how often have you been bothered by any of the following problems? 1. Little interest or pleasure in doing things: not at all 2. Feeling down, depressed, or hopeless: more than half the days 3. Trouble falling or staying asleep, or sleeping too much: several days 4. Feeling tired or having little energy: several days 5. Poor appetite or overeating: more than half the days 6. Feeling bad about yourself - or that you are a failure or have let yourself or your family down: not at all 7. Trouble concentrating on things, such as reading the newspaper or watching television: more than half the days 8. Moving or speaking so slowly that other people could have noticed. Or the opposite - being so fidgety or restless that you have been moving around a lot more than usual: not at all 9. Thoughts that you would be better off or of hurting yourself in some way: not at all Total score: 8 Depression Screening Interpretation: Positive Depression Screening Done: Yes 09870 - PHQ-9 Billing: Yes Source: Developed by Leni HaneyW. Michele, Mejia Vicente and colleagues, with an educational christine from [employer]. Thrive Questionnaire Date Thrive assessed: 11/24/24 I am a: Patient What is your living situation today?: I have a steady place to live Within the past 12 months, did the food you bought not last and you didn't have the money to get more?: Never true Within the past 12 months, did you worry whether your food would run out before you got money to buy more?: Never true Do you have trouble paying for medicines?: No Do you have trouble getting transportation to medical appointments?: No Do you have trouble paying your heating and electricity bill?: Yes Do you have trouble taking care of your child, family member or friend?: No Do you have trouble with day-to-day activities such as bathing, preparing meals, shopping, managing finances, etc.?: No Are you currently unemployed and looking for a job?: No Are you interested in more education?: Yes Please select the resources that you would like help with: Job search/training Currently or been in a relationship where the following occur: No concerns reported THRIVE Score: 1 AUDIT C Alcohol Use Questionnaire (AUDIT-C) 1. How often do you have a drink containing alcohol?: 2-4 times a month 2. How many drinks containing alcohol do you have on a typical day when you are drinking?: 1 or 2 3. How often do you have six or more drinks on one occasion?: Never Total Score: 2 VIKAS-7 AMB Questionnaire VIKAS-7 Date VIKAS - 7 assessed: 11/24/24 Feeling nervous, anxious, or on edge: 1 = Several days Not being able to stop or control worryin = More than half the days Worrying too much about different things: 2 = More than half the days Trouble relaxin = More than half the days Being so restless that it is hard to sit still: 2 = More than half the days Becoming easily annoyed or irritable: 2 = More than half the days Feeling afraid as if something awful might happen: 0 = Not at all Total VIKAS-7 score (0-4 normal; 5-9 mild; 10-14 moderate; 15-21 severe): 11 Source: Developed by Drs. Kartik Lainez, Leni Bautista, Mejia Vicente and colleagues, with an educational christine from [employer] VIKAS-7 Assessment Billing VIKAS-7 Assessment Tool: VIKAS-7 Assessment 52721 Review of Systems Const Details: Positives besides what was mentioned in HPI are in BOLD Constitutional: No Weight Change, No Fever, No Chills, No Night Sweats, No Fatigue, No Malaise ENT/Mouth: No Hearing Changes, No Ear Pain, No Nasal Congestion, No Sinus Pain, No Hoarseness, No sore throat, No Rhinorrhea, No Swallowing Difficulty Eyes: No Eye Pain, No Swelling, No Redness, No Foreign Body, No Discharge, No Vision Changes Cardiovascular: No Chest Pain, No SOB, No PND, No Dyspnea on Exertion, No Orthopnea, No Claudication, No Edema, No Palpitations Respiratory: No Cough, No Sputum, No Wheezing, No Smoke Exposure, No Dyspnea Gastrointestinal: No Nausea, No Vomiting, No Diarrhea, No Constipation, No Pain, No Heartburn, No Anorexia, No Dysphagia, No Hematochezia, No Melena, No Flatulence, No Jaundice Genitourinary: No Dysmenorrhea, No DUB, No Dyspareunia, No Dysuria, No Urinary Frequency, No Hematuria, No Urinary Incontinence, No Urgency, No Flank Pain, No Urinary Flow Changes, No Hesitancy Musculoskeletal: No Arthralgias, No Myalgias, No Joint Swelling, No Joint Stiffness, No Back Pain, No Neck Pain, No Injury History Skin: No Skin Lesions, No Pruritis, No Hair Changes, No Breast/Skin Changes, No Nipple Discharge Neuro: No Weakness, No Numbness, No Paresthesias, No Loss of Consciousness, No Syncope, No Dizziness, No Headache, No Coordination Changes, No Recent Falls Psych: No Anxiety/Panic, No Depression, No Insomnia, No Personality Changes, No Delusions, No Rumination, No SI/HI/AH/VH, No Social Issues, No Memory Changes, No Violence/Abuse Hx., No Eating Concerns Heme/Lymph: No Bruising, No Bleeding, No Transfusions History, No Lymphadenopathy Endocrine: No Polyuria, No Polydipsia, No Temperature Intolerance Physical exam (Primary Care) Vital Signs: Last Vital Signs Temp 97.1 F 11/24/24 10:02 Pulse 95 11/24/24 10:02 BP 118/68 11/24/24 10:02 Pulse Ox 99 11/24/24 10:02 Oxygen Delivery Method Room Air 11/24/24 10:02 BMI result Body Mass Index 23.8 Tobacco/Smoking Status: Tobacco use Status Tobacco use date assessed 11/24/24 11/24/24 10:15 Patient Tobacco Use Status Current someday Tobacco 11/24/24 10:15 e-Cigarette/Vaping Use Never Used 11/24/24 10:15 PHQ-9: PHQ-9 Score PHQ-9: Total score 8 11/24/24 12:00 Depression Screening Interpretation: Positive Thrive Assessment: Date of Thrive Assessment Date Thrive assessed 11/24/24 11/24/24 10:15 Currently or been in a relationship where the following occur: No concerns reported Const Other: Pertinent findings are in BOLD GENERAL APPEARANCE NAD, activity normal for age, well developed/ well nourished, no cyanosis, pallor, or diaphoresis. EYES lids/conjunctiva normal. EARS/NOSE/THROAT Mucous membranes moist, nares normal, lips/teeth normal uvula midline without oral pharyngeal erythema, exudate or swelling TMs normal bilaterally. No lymphangitis/lymphedema. HEAD/NECK normocephalic atraumatic, no facial trauma, neck is supple. RESPIRATORY respiratory effort normal, speaks in full sentences, no tripod position, no accessory muscle use. Lungs clear to auscultation without rhonchi, wheezes, rales CARDIAC Regular rate and rhythm, no edema. ABDOMINAL Soft, ND/NT. No evidence of fluid wave. No pulsatile masses on exam, rebound tenderness, Mancilla sign or pain over Mcburney's point. MUSCLES/EXTREMITIES No abnormal range of motion, no swelling. SKIN Warm, pink and dry. No rashes, dermatoses, petechiae or lesions. NEUROLOGICAL Speech is clear and appropriate. Normal level of consciousness. Gait and coordination are normal. 5/5 strength in all extremities. PSYCH Normal mood and affect. Judgement/competence is appropriate Coding Level of Care Code New Pt Level 5 (08085) Diagnoses Allergic rhinitis, unspecified seasonality, unspecified trigger J30.9 Allergic rhinitis seasonality: unspecified Allergic rhinitis trigger: unspecified Healthcare maintenance Z00.00 MDD (major depressive disorder) F32.9 VIKAS (generalized anxiety disorder) F41.1 Allergy T78.40XA Migraine with aura G43.109 Additional Codes VIKAS-7 Assessment Billing - VIKAS-7 Assessment Tool: VIKAS-7 Assessment 89308 ([id number]) PHQ-9 - 76873 - PHQ-9 Billing: Yes ([id number]) Time Spent (min) 45 Comment Time spent on discussing lifestyle changes, adherence to medications, and chart review. Assessment & Plan Assessment & Plan (1) Allergic rhinitis: Code(s): J30.9 - Allergic rhinitis, unspecified Category: Medical Qualifiers: Allergic rhinitis seasonality: unspecified Allergic rhinitis trigger: unspecified Qualified Code(s): J30.9 - Allergic rhinitis, unspecified Plan: Flonase and Zyrtec. Continue to avoid triggers. (2) Healthcare maintenance: Code(s): Z00.00 - Encounter for general adult medical examination without abnormal findings Category: Medical Plan: Dexa NI CBC, CMP, Lipid panel, A1C, TSH w T4. Will order next visit. We will discuss her vaccines status with next visit. Colonoscopy: 45-75 AAA: NI Ct lung: NI Mammogram: NI HPV: SALON/SPA MANAGER referral placed. HIV: Next visit. HBV: Next visit. HCV: Next visit. (3) MDD (major depressive disorder): Code(s): F32.9 - Major depressive disorder, single episode, unspecified Category: Medical Plan: Patient reports taking Ativan in the past which helps her anxiety. Ativan prescribed. Wellbutrin prescribed but patient will think about it. Patient will consider behavioral therapy. She will call and schedule and appointment with her therapist. (4) VIKAS (generalized anxiety disorder): Code(s): F41.1 - Generalized anxiety disorder Category: Medical Plan: Same as under MDD. (5) Allergy: Code(s): T78.40XA - Allergy, unspecified, initial encounter Category: Medical Plan: Flonase and Zyrtec. (6) Migraine with aura: Code(s): G43.109 - Migraine with aura, not intractable, without status migrainosus Category: Medical Plan: Well controlled with caffeine intake. Plan During the visit, we discussed the patient's history of severe anxiety disorder and panic disorder, emphasizing the importance of medication management to control symptoms. We explored the possibility of reintroducing Ativan or Klonopin, which have been effective in the past, and considered other therapeutic options. We also addressed the patient's concerns about ADHD, fibromyalgia, migraines, and gastrointestinal issues, discussing potential management strategies for each condition. Orders: Referrals RADIO REPAIR TEACHER Referral Z00.00 - Encounter for general adult medical examination without abnormal findings Medications: New fluticasone propionate 50 mcg/actuation (Flonase Allergy Relief) administer into each nostril 1 spray intranasal DAILY 16 grams 0RF bupropion HCl XL (Wellbutrin XL) 150 mg PO QAM 30 tabs 3RF Changed From lorazepam PO To lorazepam 0.5 mg PO DAILY PRN 30 tabs 3RF anxiety 30 days Refilled cetirizine (Zyrtec) 10 mg PO DAILY 30 tabs 0RF J30.9 - Allergic rhinitis, unspecified
--- OUTSIDE RECORDS SUMMARY | 2024-11-24 11:57 | XMS_ITS | Clinical Summary ---
Author Organization [facility] Address [address] [place] [address] Phone Care Team Providers Care Diamond Sizer Name Role Phone Hailee Velazquez MD Primary Care Provider [phone]- [phone] Allergies Active Allergy Reactions Criticality Noted Date [...] Date Seizure (CMS/HCC V24, CMS/HCC V28) 05/18/2024 Medical History Medical History Date Comments Anxiety [...] your loved ones. For example, early childhood educator aide or elderly care for an older adult? 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 Not on file Not on file Obstetrics History Last Filed Vital Signs Vital Sign Reading Time Taken Comments Blood Pressure 107/67 05/20/2024 3:26 PM EDT Pulse 69 05/20/2024 3:26 PM EDT Temperature 36.6 C (97.9 F) 05/20/2024 3:26 PM EDT Respiratory Rate 16 05/20/2024 3:26 PM EDT [...] 5 Years) and At-Risk Patients (6 to 49 Years) (1 of 2 - PCV) 2009 Cervical Cancer Screening: Pap Smear 07/02/2011 HIV Screening 04/08/2023 Hepatitis C Screening 04/08/2023 Medicare Annual Wellness Visit 04/08/2023 Depression Screening 03/10/2024 COVID-19 Vaccine ( season) 2024 01/14/2021, 12/23/2020 Influenza Vaccine (#1) 2024 3, 03/19/2021, 01/19/2018, Additional history exists Social Influencers [...] on patient's age to complete this topic Insurance MEDICARE Member Subscriber Plan / Payer (Ef fective 2023-Present) Name:Linda Oliveros Relation to Subscriber:Self Name:Linda Oliveros Payer ID:[id number] Group ID:[id number] Type:Not on file Address: [place] [address] [id number] Advance Directives Documents on File Type Date Recorded Patient Stator Tester Expl anation Advance Directives and Living Will 05/20/2024 2:05 PM [facility] Care Proxy * Full Code - [...] Agents on File Name Relationship Healthcare Agent [facility] p Communication Kathya Tuttle [facility] Health Care Agent Care Teams Diamond Sizer Relationship Specialty Start Date End Date Hailee Velazquez MD [address] [place] [id number] PCP - General Internal Medicine 04/19/24
--- OUTSIDE RECORDS SUMMARY | 2024-11-24 11:57 | XMS_ITS ---
Author Organization [facility] Address [address] [place] [phone] Phone Care Team Providers Care Screening Unit Registered Nurse Name Role Phone Hailee Velazquez MD Primary Care Provider [phone]- [phone] [facility] - Food Insecurity Status:Ongoing (Active) Start date:04/19/2024 Enrollment date:04/19/2024 Enrollment reason:Walk-in Related social drivers of health:Food Risk Related program episode:Community Health Worker Program (Closed) Overview Community Health Worker Program - Food Insecurity Service Episode Case Team Name Relationship Phone Stefan Dalal Community Health Worker(Respons ible Staff) Continued Care and Services Coordination
--- OUTSIDE RECORDS SUMMARY | 2024-11-24 11:57 | XMS_ITS ---
Author Organization [facility] Address [address] [place] [id number] Phone Care Team Providers Care Supervisor [employer] Name Role Phone Hailee Velazquez MD Primary Care Provider +1- [phone] [facility] - Transportation Status:Ongoing (Active) Start date:04/19/2024 Enrollment date:04/19/2024 Enrollment reason:Walk-in Related social drivers of health:Transportation Related program episode:Community Health Worker Program (Closed) Overview Community Health Worker Program - Transportation Service Episode Case Team Name Relationship Phone Stefan Dalal Community Health Worker(Respons ible Staff) Continued Care and Services Coordination
== END 2024-11-24 11:45 | disposition home or self-care (01) ==
LOC: HO.HMCH 09:58
PROVIDERS: PCP Internal Medicine; Visit Provider Internal Medicine
DX: J30.9 Allergic rhinitis, unspecified (principal); F32.9 Major depressive disorder, single episode, unspecified; F41.1 Generalized anxiety disorder; T78.40XA Allergy, unspecified, initial encounter; G43.109 Migraine with aura, not intractable, without status migrainosus

== ENCOUNTER → 2024-11-24 09:58 | Outpatient (BNVA) | payer OTHER, SELFPAY | PROVIDERS: PCP Internal Medicine; Visit Provider Internal Medicine | DX: Z00.00 Encounter for general adult medical examination without abnormal findings (principal); R56.9 Unspecified convulsions; F90.9 Attention-deficit hyperactivity disorder, unspecified type; F41.0 Panic disorder [episodic paroxysmal anxiety]; F41.1 Generalized anxiety disorder; M79.7 Fibromyalgia; K21.9 Gastro-esophageal reflux disease without esophagitis; J30.9 Allergic rhinitis, unspecified; F32.9 Major depressive disorder, single episode, unspecified; G43.109 Migraine with aura, not intractable, without status migrainosus; Z91.09 Other allergy status, other than to drugs and biological substances | CPT/HCPCS: 96127; 99212 ==

== ENCOUNTER 2025-03-04 16:01 | Outpatient (AMB) | payer OTHER, SELFPAY ==
--- OUTSIDE RECORDS SUMMARY | 2025-02-28 23:59 | XMS_ITS | Continuity of Care Document ---
Author Organization [facility] antony Address [address] [place] [address] Dr ve [id number] Care Team Providers Care Check Embosser Name Role Phone Not on Staff, PCP Primary Care Physician Unavail able Encounter [facility] [place] Date(s): 02/21/25 - 02/28/25 [facility] [address] [place] [id number] Attending Physician: Derrell Gerardo MD Referring Physician: Not on Staff, Referring MD Encounter Type: Office Visit Allergies, Adverse Reactions, Alerts Substance Criticality Severity Reaction Reaction Severity Status amoxicillin Rash, swelling Act celi Pollen Active penicillin Active Latex Active Egg Allergy Active Bananas Active Avocado Active [place] Active Immunizations Given and Recorded Vaccine Date Status Refusal Reason tetanus/diphtheria/pertussis, acel(Tdap) 05/05/23 Given tetanus/diphtheria/pertussis, acel(Tdap) 1 05/08/21 Given tetanus/diphtheria/pertussis, acel(Tdap) 05/14/18 Given tetanus/diphtheria/pertussis, acel(Tdap) 01/01/12 Recorded influenza virus vaccine, inactivated 12/27/22 Willy rded influenza virus vaccine, inactivated 2 03/19/21 Gi dewayne influenza virus vaccine, inactivated 3 01/19/18 Gi dewayne SARS-CoV-2 (COVID-19) mRNA BNT-162b2 vac 01/14/21 Recorded SARS-CoV-2 (COVID-19) mRNA BNT-162b2 vac 12/23/20 Recorded Human Papillomavirus Vaccine 4 02/25/19 Recorded Human Papillomavirus Vaccine 5 12/30/16 Given Human Papillomavirus Vaccine 09/18/15 Recorded hepatitis B adult vaccine 12/04/16 Recorded Measles/Mumps/Rubella Virus Vaccine 09/18/15 Recor ded Measles/Mumps/Rubella Virus Vaccine 07/02/91 Recor ded Hepatitis B Vaccine (old term) 09/18/15 Recorded Hepatitis B Vaccine (old term) 90 Recorded 1Result Comment: [facility] [id number] 2Result Comment: [id number] 3Result Comment: [01/19/2018] [facility] [id number] 4Result Comment: pt given 3rd dose of hpv vaccine in [place]. 5Result Comment: [12/30/2016] [id number] Medications AfterPill 1.5 mg oral tablet 1 tablet = 1.5 mg, By Mouth, Once, # 1 tablet, 1 Refills, Soft Stop, 09/20/24 7:46:00 PM EDT, [facility]/pharmacy #[id number], Partial fill upon patient request if the prescription is for a schedule II opioid drug., 155, cm, 07/26/24 10:38:00 EDT, Height, 58.7, kg, 06/18/24 20:01:00 EDT, Dry Weight Start Date: 09/20/24 Status: Ordered Medication Dispense Status: Completed Quantity: 1.0 Unit: tablet Total Allowed Fills: 2 Fills Dispensed: 0 AfterPill 1.5 mg oral tablet 1 tablet = 1.5 mg, By Mouth, Once, # 1 tablet, 0 Refills, Soft Stop, 07/19/24 2:41:00 PM EDT, [facility]/pharmacy #[id number], Partial fill upon patient request if the prescription is for a schedule II opioid drug., 155, cm, 07/15/24 14:17:00 EDT, Height, 58.7, kg, 06/18/24 20:01:00 EDT, Dry Weight Start Date: 07/19/24 Status: Ordered Medication Dispense Status: Completed Quantity: 1.0 Unit: tablet Total Allowed Fills: 1 Fills Dispensed: 0 albuterol CFC free 90 mcg/inh inhalation aerosol 2, puffs, Inhalation, Every 4 hours, PRN, # 8.5 Gm, Refills 3, Tot. Refills 3, Maintenance, 04/13/24 8:51:00 AM EST, Aerosol, Route to Pharmacy Electronically, [id number], [id number], 155, cm, 04/12/24 16:13:00 EST, Height, 53.1, kg, 04/12/24 16:13:00 EST, Dry Weight Start Date: 04/13/24 Stop Date: 08/11/24 Status: Ordered Medication Dispense Status: Completed Quantity: 8.5 Unit: g Total Allowed Fills: 4 Fills Dispensed: 0 Ativan 0.5 mg oral tablet 1 tablet = 0.5 mg, By Mouth, Daily, PRN as needed for anxiety, # 30 tablet, 0 Refills, Maintenance,05/15/24 8:11:00 AM EST, [facility]/pharmacy #[id number], Partial fill upon patient request if the prescription isfor a schedule II opioid drug., 155, cm, 04/19/24 13:34:00 EST, Height, 53.1, kg, 04/12/24 16:13:00EST, Dry Weight Start Date: 05/15/24 Status: Ordered Medication Dispense Status: Completed Quantity: 30.0 Unit: tablet Total Allowed Fills: 1 Fills Dispensed: 0 Angella 30 mg oral tablet 1 tablet = 30 mg, By Mouth, Once, # 1 tablet, 2 Refills, Soft Stop, 06/08/24 10:26:00 AM EDT, Tablet,[facility]/pharmacy #[id number], Partial fill upon patient request if the prescription is for a schedule II opioid drug., 155, cm, 05/28/24 16:29:00 EDT, Height, 59.1, kg, 05/28/24 16:29:00 EDT, Dry Weight Start Date: 06/08/24 Status: Ordered Medication Dispense Status: Completed Quantity: 1.0 Unit: tablet Total Allowed Fills: 3 Fills Dispensed: 0 Golytely - oral powder for reconstitution See Instructions, Follow instructions from GI, # 4,000 mL, 0 Refills, Maintenance, 07/26/24 11:10:00AM EDT, [facility]/pharmacy #[id number], Partial fill upon patient request if the prescription is for a scheduleII opioid drug., Follow instructions from GI, 155, cm, 07/26/24 10:38:00 EDT, Height, 58.7, kg, 06/18/24 20:01:00 EDT, Dry Weight Start Date: 07/26/24 Status: Ordered Medication Dispense Status: Completed Quantity: 4000.0 Unit: mL Total Allowed Fills: 1 Fills Dispensed: 0 Indications: Encounter for other preprocedural examination; ibuprofen 800 mg oral tablet 800 mg, 1, tablet, By Mouth, 3 times a day, PRN, # 30 tablet, Refills 0, Tot. Refills 0, Maintenance, for pain, 01/26/25 11:50:00 PM EST, Route to Pharmacy Electronically, [facility]/pharmacy #[id number], Partialfill upon patient request if the prescription is for a schedule II opioid drug., 155, cm, 01/26/25 22:46:00 EST, Height, 58.7, kg, 06/18/24 20:01:00 EDT, Dry Weight Start Date: 01/26/25 Status: Ordered Medication Dispense Status: Completed Quantity: 30.0 Unit: tablet Total Allowed Fills: 1 Fills Dispensed: 0 ibuprofen 800 mg oral tablet 800 mg, 1, tablet, By Mouth, 3 times a day, # 60 tablet, Refills 0, Tot. Refills 0, Acute 03/14/25 2:26:00 PM EST, 02/21/25 2:25:00 PM EST, Route to Pharmacy Electronically, [facility]/pharmacy #[id number], Partialfill upon patient request if the prescription is for a schedule II opioid drug., 155, cm, 02/21/25 14:03:00 EST, Height, 58.7, kg, 06/18/24 20:01:00 EDT, Dry Weight Start Date: 02/21/25 Stop Date: 03/14/25 Status: Ordered Medication Dispense Status: Completed Quantity: 60.0 Unit: tablet Total Allowed Fills: 1 Fills Dispensed: 0 Lamotrigine By Mouth, Refills 0, Maintenance, 05/28/24 4:29:00 PM EDT, Partial fill upon patient request if the prescription is for a schedule II opioid drug. Start Date: 05/28/24 Status: Ordered Medication Dispense Status: Completed Total Allowed Fills: 1 Fills Dispensed: 0 lidocaine 4% topical gel See Instructions, PRN Pain , Mild, apply small amount of gel topically to affected area three timesa day as needed for pain, # 15 Gm, 1 Refills, Maintenance, 07/12/24 1:48:00 PM EDT, [facility]/pharmacy #[id number], Partial fill upon patient request if the prescription is for a schedule II opioid drug., apply sma ll amount of gel topically to affected area three times a day as needed for pain,PRN:Pain , Mild, 155, cm, 06/18/24 20:11:00 EDT, Height, 58.7, kg, 06/18/24 20:01:00 EDT, Dry Weight Start Date: 07/12/24 Status: Ordered Medication Dispense Status: Completed Quantity: 15.0 Unit: g Total Allowed Fills: 2 Fills Dispensed: 0 oxyCODONE 5 mg oral tablet 5 mg, 1, tablet, By Mouth, Daily, PRN, # 7 tablet, Refills 0, Tot. Refills 0, Maintenance, Pain , Severe, 04/19/24 4:28:00 PM EST, Route to Pharmacy Electronically, [facility]/pharmacy #[id number], Partial fill upon patient request if the prescription is for a schedule II opioid drug., 155, cm, 04/19/24 13:34:00EST, Height, 53.1, kg, 04/12/24 16:13:00 EST, Dry Weight Start Date: 04/19/24 Status: Ordered Medication Dispense Status: Completed Quantity: 7.0 Unit: tablet Total Allowed Fills: 1 Fills Dispensed: 0 pantoprazole 20 mg oral delayed release tablet 1 tablet = 20 mg, By Mouth, Daily, Please take on an empty stomach 30 mins before breakfast, # 30 tablet, 4 Refills, Maintenance, 07/26/24 11:07:00 AM EDT, CR Tablet, 155, cm, 07/26/24 10:38:00 EDT, Height, 58.7, kg, 06/18/24 20:01:00 EDT, Dry Weight Start Date: 07/26/24 Status: Ordered Medication Dispense Status: Completed Quantity: 30.0 Unit: tablet Total Allowed Fills: 5 Fills Dispensed: 0 Indications: Gastro-esophageal reflux disease without esophagitis; Tylenol Extra Strength 500 mg oral tablet 1 tablet = 500 mg, By Mouth, Every 4 hours, PRN as needed for pain, # 24 tablet, 0 Refills, Maintenance, 01/26/25 11:51:00 PM EST, Tablet, [facility]/pharmacy #[id number], Partial fill upon patient request if theprescription is for a schedule II opioid drug., 155, cm, 01/26/25 22:46:00 EST, Height, 58.7, kg, 06/18/24 20:01:00 EDT, Dry Weight Start Date: 01/26/25 Status: Ordered Medication Dispense Status: Completed Quantity: 24.0 Unit: tablet Total Allowed Fills: 1 Fills Dispensed: 0 Problem List Condition Confirmation Course Effective Dates Status H ealth Status Informant Anxiety Confirmed Active Asthma Confirmed Active Constipation Confirmed Active Environmental allergies Confirmed Active Fibromyalgia Confirmed Active GERD (gastroesophageal reflux disease) Confirmed Active History of Helicobacter pylori infection Confirmed Active Migraine with aura Confirmed Active Major depression, recurrent Confirmed Active Ureteral stenosis Confirmed Active Vital Signs Most recent to oldest [Reference Range]: 1 Height 155 cm (02/21/25 2:03 PM) Weight 58.6 kg (02/21/25 2:03 PM) Oxygen Saturation [94-100 %] 99 % (02/21/25 2:03 PM) Pulse Rate [55-90 bpm] 94 bpm *H* (02/21/25 2:03 PM) Body Mass Index [18.5-24.99 kg/m2] 24.39 kg/m2 (02/21/25 2:03 PM) Blood Pressure [90-138/55-84 mm Hg] 114/ 59mm Hg (02/21/25 2:03 PM) Temperature [96.8-100.4 DegF] 98.4 DegF (02/21/25 2:03 PM) Blood pressure sites Arm, right (02/21/25 2:03 PM) Temperature Route Temporal (02/21/25 2:03 PM) Weight Obtained Via Standing scale (02/21/25 2:03 PM) Social History Social History Type Response Smoking Status Former smoker, quit more than 30 days ago entered on: 07/03/23 Sexual Orientation Self described orien tation: ; Straight or heterosexual Sex Female Sex Representation Female (finding) Patient Care team information Care Team Personnel Name: Not on Staff, PCP Position: S Physician (General Medicine) Member Role: PCP Care Team Related Persons Name: CHRISTINA ALONZO Name: HOLLY BAIG Name: JOVANNY MOORE Name: MAICOL DUCKWORTH Name: MAICOL LARA Insurance Providers Guarantor name: LEON MOORE KDS Plan Information #: [address] [facility] Payer Identifier: NA Member Number: [id number] Group Number: [id number] Subscriber Identifier: [id number] Relationship to Subscriber: self Coverage Type: Medicare Managed Care (Includes Medicare Advantage Plans) Coverage Verification Date: NA Telecom: NA Address: NA
[2025-03-04 16:03] VITALS: BP 108/62; PULSE 83; TEMP 36.1; O2SAT 99; BMI 24.3
--- NOTE | 2025-03-04 16:03 | MHC.PC.OV ---
Vital Signs 03/04/25 16:03 Height 5 ft 1 in Weight 128 lb 6 oz BMI 24.3 BP 108/62 Blood Pressure Location Rt brachial Position Sitting Pulse 83 Pulse Source Pulse Oximeter Temp 97.0 F Temp Source Temporal Artery Scan Pulse Oximetry (%) 99 Oxygen Delivery Method Room Air Intake Visit Reasons: forms to be filled Allergies ceftriaxone (CEFTRIAXONE) Allergy (Intermediate, Verified 03/04/25 16:04) HIVES amoxicillin (AMOXICILLIN) Allergy (Mild, Verified 03/04/25 16:04) RASH SEASONAL ALLERGIES Allergy (Unknown, Uncoded 03/04/25 16:04) UNKNOWN Medication List - Last Reconciled 03/04/25 by Hector Rodriguez MD cephalexin 500 mg PO QID cetirizine (Zyrtec) 10 mg PO DAILY epinephrine (EpiPen 2-Zachary) 0.3 mg (0.3 mL) IM Q10M PRN fluticasone propionate 50 mcg/actuation (Flonase Allergy Relief) 1 spray intranasal DAILY ibuprofen 600 mg PO Q8H PRN lorazepam 0.5 mg PO DAILY PRN 30 days Tobacco use date assessed: 03/04/25 Dental Screening Dental Screen Date: 03/04/25 Did you have a dental visit in the last 12 months?: Yes Did you have a dental problem in the last 6 months where you did not have access to dental care?: No Was dental information given to patient?: Patient has dentist HPI HPI Comments History of Present Illness Details The patient is a 34 year old female presenting for management of chronic conditions, a recent injury, and assistance with disability paperwork. She has a long-standing history of fibromyalgia, PTSD, and anxiety disorder with panic attacks, for which she reports she has been on disability for many years. I explained to the patient that we did not receive her prior records to confirm these diagnosis prior to her visit. We were able to access some of the patient's records. As per her [facility] records the patient has documented diagnosis of anxiety, PTSD, Migraine with aura and MDD. She was seeing a therapist in the past but she stopped due to frustration related to her care. I explained to the patient that the best treatment for her anxiety and PTSD would be SSRI or Trazadone. The patient declined the treatment. She reported history of Fibromyalgia and she was requesting a medication for it although she did not know which medication this would be. I explained to her the medications indicated for fibromyaligia are SSRI and that we need to try them initially before escalating care. She reports she does not want to try SSRI. The patient reports worsening ADHD due to increased responsibilities. I explained to the patient that a formal assessment would need to be conducted by a psychiatrist prior to diagnosing her with ADHD as this is outside the scope of my expertise. She declined psychiatry referral. The patient also reported history of migraine with aura as reported by her [facility] records. She asked for a medication that starts with the letter B, most likely referring to Butalbital. Based on the neurology note we have access to the patient was on Sumatriptan and Nortryptiline. (note by Veronica Carballo and verified by Miguel Angel from 01/17/2022 [facility] neurology). Approximately two weeks ago, she sustained a puncture wound to her left hand with a knife. She was evaluated at [facility] where surgery was considered but not performed, and she was left with three internal stitches. She reports ongoing symptoms including reduced vp mobile products strength, decreased mobility, and pain, particularly with writing, as she is left-handed. The patient is taking cephalexin prophylaxis for a suspected tissue infection but reports taking only two pills a day instead of the prescribed four due to exhaustion. Her psychiatric history includes treatment with lorazepam 0.5 mg, which was prescribed by her prior physician. She reports the recent hand injury has triggered her PTSD, causing insomnia, nightmares, and nocturnal panic attacks. She has previously engaged in therapy on and off for many years but finds it can be re-triggering. Additional medical history includes scoliosis and migraines with aura, for which she previously saw a neurologist and received physical therapy. She also reports a remote history of seizures which have since resolved. [facility] Medical History (Updated 03/04/25 @ 18:38 by Hector Rodriguez MD) Allergic rhinitis Acute respiratory disease Depression Anxiety PTSD (post-traumatic stress disorder) Family History Paternal Grandmother Breast cancer Father Substance abuse Mental health disorder Social History Household Members: Children Housing: Apartment Alcohol intake: current Alcohol intake frequency: holidays/special occasions only Patient Tobacco Use Status: Current someday Tobacco user Cigarettes Per Day: 3 e-Cigarette/Vaping Use: Never Used Substance Use Type: Marijuana service: No Current occupational status: employed Cognitive needs: No Hearing needs: No Vision needs: Yes Questionnaire PHQ-9 Over the last 2 weeks, how often have you been bothered by any of the following problems? 1. Little interest or pleasure in doing things: not at all 2. Feeling down, depressed, or hopeless: more than half the days 3. Trouble falling or staying asleep, or sleeping too much: several days 4. Feeling tired or having little energy: several days 5. Poor appetite or overeating: more than half the days 6. Feeling bad about yourself - or that you are a failure or have let yourself or your family down: not at all 7. Trouble concentrating on things, such as reading the newspaper or watching television: more than half the days 8. Moving or speaking so slowly that other people could have noticed. Or the opposite - being so fidgety or restless that you have been moving around a lot more than usual: not at all 9. Thoughts that you would be better off or of hurting yourself in some way: not at all Total score: 8 Depression Screening Interpretation: Positive Depression Screening Done: Yes Source: Developed by Drs. Kartik Lainez, Leni Bautista, Mejia Vicente and colleagues, with an educational christine from [employer]. Thrive Questionnaire Date Thrive assessed: 11/24/24 I am a: Patient What is your living situation today?: I have a steady place to live Within the past 12 months, did the food you bought not last and you didn't have the money to get more?: Never true Within the past 12 months, did you worry whether your food would run out before you got money to buy more?: Never true Do you have trouble paying for medicines?: No Do you have trouble getting transportation to medical appointments?: No Do you have trouble paying your heating and electricity bill?: Yes Do you have trouble taking care of your child, family member or friend?: No Do you have trouble with day-to-day activities such as bathing, preparing meals, shopping, managing finances, etc.?: No Are you currently unemployed and looking for a job?: No Are you interested in more education?: Yes Currently or been in a relationship where the following occur: No concerns reported THRIVE Score: 1 AUDIT C Alcohol Use Questionnaire (AUDIT-C) 1. How often do you have a drink containing alcohol?: 2-4 times a month 2. How many drinks containing alcohol do you have on a typical day when you are drinking?: 1 or 2 3. How often do you have six or more drinks on one occasion?: Never Total Score: 2 VIKAS-7 AMB Questionnaire VIKAS-7 Date VIKAS - 7 assessed: 11/24/24 Feeling nervous, anxious, or on edge: 1 = Several days Not being able to stop or control worryin = More than half the days Worrying too much about different things: 2 = More than half the days Trouble relaxin = More than half the days Being so restless that it is hard to sit still: 2 = More than half the days Becoming easily annoyed or irritable: 2 = More than half the days Feeling afraid as if something awful might happen: 0 = Not at all Total VIKAS-7 score (0-4 normal; 5-9 mild; 10-14 moderate; 15-21 severe): 11 Source: Developed by Drs. Kartik Lainez, Leni Bautista, Mejia Vicente and colleagues, with an educational christine from [employer]. Review of Systems Const Details: As per HPI. Physical exam (Primary Care) Vital Signs: Last Vital Signs Temp 97.0 F 03/04/25 16:03 Pulse 83 03/04/25 16:03 BP 108/62 03/04/25 16:03 Pulse Ox 99 03/04/25 16:03 Oxygen Delivery Method Room Air 03/04/25 16:03 BMI result Body Mass Index 24.3 Tobacco/Smoking Status: Tobacco use Status Tobacco use date assessed 03/04/25 03/04/25 16:10 Patient Tobacco Use Status Current someday Tobacco 03/04/25 16:10 e-Cigarette/Vaping Use Never Used 03/04/25 16:10 PHQ-9: PHQ-9 Score PHQ-9: Total score 8 03/04/25 16:10 Depression Screening Interpretation: Positive Thrive Assessment: Date of Thrive Assessment Date Thrive assessed 11/24/24 03/04/25 16:10 Currently or been in a relationship where the following occur: No concerns reported Const Other: Pertinent findings are in BOLD GENERAL APPEARANCE NAD, activity normal for age, well developed/ well nourished, no cyanosis, pallor, or diaphoresis. EYES lids/conjunctiva normal. EARS/NOSE/THROAT Mucous membranes moist, nares normal, lips/teeth normal uvula midline without oral pharyngeal erythema, exudate or swelling TMs normal bilaterally. No lymphangitis/lymphedema. HEAD/NECK normocephalic atraumatic, no facial trauma, neck is supple. RESPIRATORY respiratory effort normal, speaks in full sentences, no tripod position, no accessory muscle use. Lungs clear to auscultation without rhonchi, wheezes, rales CARDIAC Regular rate and rhythm, no edema. ABDOMINAL Soft, ND/NT. No evidence of fluid wave. No pulsatile masses on exam, rebound tenderness, Mancilla sign or pain over Mcburney's point. MUSCLES/EXTREMITIES No abnormal range of motion, no swelling. Left hand vp mobile products weakness due to pain. SKIN Warm, pink and dry. No rashes, dermatoses, petechiae or lesions. LEft arm wrapped with vikas. NEUROLOGICAL Speech is clear and appropriate. Normal level of consciousness. Gait and coordination are normal. 5/5 strength in all extremities. PSYCH Normal mood and affect. Judgement/competence is appropriate Coding Level of Care Code Est Pt Level 5 (98333) Diagnoses Arm weakness R29.898 Migraine with aura G43.109 PTSD (post-traumatic stress disorder) F43.10 Disability examination Z02.71 Arm laceration S41.119A VIKAS (generalized anxiety disorder) F41.1 Time Spent (min) 60 Assessment & Plan Assessment & Plan (1) Arm weakness: Comment: s/p Puncture wound. Code(s): R29.898 - Other symptoms and signs involving the musculoskeletal system Category: Medical Plan: OT referral for left arm weakness. (2) Migraine with aura: Code(s): G43.109 - Migraine with aura, not intractable, without status migrainosus Category: Medical Plan: Neurology referral as requested by the patient. - She reported being previously on a medication that starts with the letter B without being able to remember the full name. -- As per the patient's records she was previously on Sumatriptan and Amitryptilin. (3) PTSD (post-traumatic stress disorder): Code(s): F43.10 - Post-traumatic stress disorder, unspecified Category: Medical Plan: - The patient reports worsening PTSD symptoms, including insomnia and nightmares, triggered by her recent hand injury. - Discussed referral to a psychiatrist for expert management, but the patient is hesitant due to past negative experiences and logistical burdens. - Offered Trazodone 50 mg at bedtime for sleep and nightmares, which the patient declined. - At the patient's request, a prescription for melatonin 5 mg will be sent, as she finds it helpful for sleep. (4) Disability examination: Code(s): Z02.71 - Encounter for disability determination Category: Medical Plan: - The patient requires completion of disability paperwork for a review scheduled for March 24. - Advised the patient that paperwork cannot be completed without supporting documentation from her previous providers. - The office will attempt to contact the prior clinic ([facility]) to request the urgent faxing of records. - The patient was also advised to go to her former clinic in person to obtain a printed copy of her records. - The office was able to access some records of the patient from [facility] and these include Neurology, behavioral health, and general medicine notes. The patient problem list at [facility] included PTSD, VIKAS, Migraine with aura whcih were added to her chart. (5) Arm laceration: Code(s): S41.119A - Laceration without foreign body of unspecified upper arm, initial encounter Category: Medical Plan: - Patient is recovering from a recent puncture wound with reported tendon injury, causing pain and functional limitation. - She is taking Cephalexin with decreased adherence due to side effects. - A referral to occupational therapy will be placed to address hand function. (6) VIKAS (generalized anxiety disorder): Code(s): F41.1 - Generalized anxiety disorder Category: Medical Plan: - Will continue her lorazepam as previously prescribed pending record review. - Patient declined Wellbutrin, SSRI, psychiatry referral. Plan I addressed the patient's primary concern regarding her disability paperwork, explaining that I cannot complete the forms without supporting medical records from her previous providers. We agreed that she would attempt to obtain a printed copy of her records directly from her former clinic. After the patientleft we were able to access some of her records which will be uploaded to our system. The problem list was updated to include the same problems at [facility] which are VIKAS, PTSD, Migraine with Aura and arm laceration. We discussed her recent hand injury and its impact on her function, and I will place a referral to occupational therapy. We also addressed her request for evaluation of her migraines with aura by placing a referral to neurology. I discussed management options for her worsening PTSD and insomnia, including a psychiatry referral and Trazodone, both of which she declined. As an alternative, I will prescribe melatonin for sleep as requested. I also updated her contact information in her chart and scheduled a follow-up visit in four weeks to review the records and adjust her care plan accordingly. Time spent 60 minutes: long discussion with the patient as she was declining most of my suggestions and I tried counseling her regarding the best approach to get her records, documentation and treatmetn plan. Orders: Orders OT Evaluation and Treatment Today R29.898 - Other symptoms and signs involving the musculoskeletal system Referrals Neurology Referral G43.109 - Migraine with aura, not intractable, without status migrainosus Medications: New melatonin 5 mg PO .Bedtime PRN 30 caps 3RF
--- OUTSIDE RECORDS SUMMARY | 2025-03-04 16:04 | XMS_ITS ---
Author Organization [facility] Address [address] [place] [phone] Phone Care Team Providers Care Blender Name Role Phone Hailee Velazquez MD Primary Care Provider [phone]- [phone] [facility] - Food Insecurity Status:Ongoing (Active) Start date:04/19/2024 Enrollment date:04/19/2024 Enrollment reason:Walk-in Related social drivers of health:Food Risk Related program episode:Community Health Worker Program (Closed) Overview Community Health Worker Program - Food Insecurity Service Episode Case Team Name Relationship Phone Stefan Dalal(Responsible Staff) Community He alth Worker Continued Care and Services Coordination
--- OUTSIDE RECORDS SUMMARY | 2025-03-04 16:04 | XMS_ITS | Clinical Summary ---
Author Organization [facility] Address [address] [place] [address] Phone Care Team Providers Care Silo Filler Name Role Phone Hailee Velazquez MD Primary Care Provider +1- [phone] Allergies Active Allergy Reactions Criticality Noted Date [...] Problems Problem Noted Date Diagnosed Date Seizure 05/18/2024 Medical History Medical History Date Comments [...] care for your loved ones. For example, home child care provider or elderly care for an older adult? [...] Date Recorded What is your living situation? 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 Not on file Not on file Not on file Last Filed Vital Signs [...] Health Maintenance Due Date Last Done Comments Non-Opioid Controlled Substance Agreement 1990 Pneumococcal Vaccine: Pediatrics (0 to 5 Years) and At-Risk Patients (6 to 49 Years) (1 of 2 - PCV) 2009 Cervical Cancer Screening: Pap Smear 07/02/2011 HIV Screening 04/08/2023 Hepatitis C Screening 04/08/2023 Medicare Annual Wellness Visit 04/08/2023 Depression Screening 03/10/2024 COVID-19 Vaccine ( season) 2024 01/14/2021, 12/23/2020 Influenza Vaccine (#1) 2024 3, 03/19/2021, 01/19/2018, Additional history exists Drug Screen 05/18/2025 05/18/2024 Social Influencers of Health Screening 05/18/2025 05/18/2024 DTaP,Tdap,and Td Vaccines (5 - Td or Tdap) 05/05/2033 05/05/2023, 05/08/2021, 05/14/2018, Additional history exists RSV Immunization Adult Patients (1 - 1-dose 75+ series) 2065 MMR Vaccines Completed 09/18/2015, 07/02/1991 Hepatitis B [...] Procedure Name Priority Date/Time Associated Diagnosis Comments DRUG ABUSE SCREEN 8A PANEL, URINE STAT 05/18/2024 11:36 PM EDT from Last 3 Months or Most Recently Relevant to Health Maintenance Results * (ABNORMAL) Drug abuse screen 8a panel, urine (05/18/2024 11:36 PM EDT) Amphetamine Screen, Ur Negative Negative LAB CHEMISTRY METHOD 5 12:44 AM EDT [facility] Comment:Certain OTC medicati ons containing ephedrine, phenylephrine, pseudoephedrine and phenylpropanolamine can cause false positive results. Barbiturate Screen, Ur Positive(A ) Negative LAB CHEMISTRY METHOD 5 12:44 AM EDT [facility] Benzodiazepine Screen, Ur Negative Negative LAB CHEMISTRY METHOD 5 12:44 AM T [facility] Cocaine Screen, Ur Negative Negative LAB CHEMISTRY METHOD 5 12:44 AM EDT [facility] Opiate Screen, Ur Negative Negative LAB CHEMISTRY METHOD 12:44 AM EDT [facility] Cannabinoid (THC) Screen, Ur Positive(A ) Negative LAB CHEMISTRY METHOD 12:44 AM EDT [facility] Comment:Specimens from patie nts taking pantoprazole sodium (Protonix) have been shown to produce false positive results. Oxycodone Screen, Ur Negative Negative LAB CHEMISTRY METHOD 5 12:44 AM EDT [facility] Fentanyl, Ur Negative Negative LAB CHEMISTRY METHOD 5 12:44 AM T [facility] Urine Urine specimen obtained by clean catch procedure / Unknown Non-blood Collection / Unknown 05/18/2024 11:36 PM EDT 05/18/2024 11:41 PM EDT Narrative [facility] - 05/19/2024 12:44 AM EDT Assay cutoffs: Amphetamines 1000 ng/mL Barbiturates 200 ng/mL Benzodiazepines 200 ng/mL Cocaine 300 ng/mL Fentanyl 1 ng/mL Opiates 300 ng/mL Oxycodone 100 ng/mL THC 50 ng/mL Semi-quantitative assay for screening purposes only. Unconfirmed screening result should not be used for non-medical purposes. *ALTERNATE METHOD CONFIRMATION DONE UPON REQUEST ONLY* Kimani Vera MD LAB URINE ORDERABLES Final Result [facility] [address] [place] [address], from Last 3 Months or Most Recently Relevant to Health Maintenance [place] [address] MEDICARE Member Subscriber Plan / Payer (Ef fective 2023-Present) Name:Lidna Oliveros Relation to Subscriber:Self Name:Linda Oliveros Payer ID:[id number] Group ID:[id number] Type:Not on file Address: [place] [address] [id number] Advance Directives Documents on File Type Date Recorded Patient Paver Layer Expl anation Advance Directives and Living Will 05/20/2024 2:05 PM Kathya Tuttle [facility] Care Proxy * Full Code [...] Healthcare Agent Relationshi p Communication Kathya Tuttle [facility] Health Care Agent Care Teams Silo Filler Relationship Specialty Start Date End Date Hailee Velazquez MD [address] [place] [phone] PCP - General Internal Medicine 04/19/24
--- OUTSIDE RECORDS SUMMARY | 2025-03-04 16:04 | XMS_ITS ---
Author Organization [facility] Address [address] [place] [phone] Phone Care Team Providers Care Tow Motor Operator Name Role Phone Hailee Velazquez MD Primary Care Provider [phone]- [phone] [facility] - Transportation Status:Ongoing (Active) Start date:04/19/2024 Enrollment date:04/19/2024 Enrollment reason:Walk-in Related social drivers of health:Transportation Related program episode:Community Health Worker Program (Closed) Overview Community Health Worker Program - Transportation Service Episode Case Team Name Relationship Phone Stefan Dalal(Responsible Staff) Community He alth Worker Continued Care and Services Coordination
== END 2025-03-04 17:12 | disposition home or self-care (01) ==
LOC: HO.HMCH 16:01
PROVIDERS: PCP Internal Medicine; Visit Provider Internal Medicine
DX: R29.898 Other symptoms and signs involving the musculoskeletal system (principal); G43.109 Migraine with aura, not intractable, without status migrainosus; F43.10 Post-traumatic stress disorder, unspecified; Z02.71 Encounter for disability determination; S41.119A Laceration without foreign body of unspecified upper arm, initial encounter; F41.1 Generalized anxiety disorder

== ENCOUNTER → 2025-03-04 16:01 | Outpatient (BNVA) | payer MEDICAID, SELFPAY | PROVIDERS: PCP Internal Medicine; Visit Provider Internal Medicine | DX: Z02.71 Encounter for disability determination (principal); S41.119A Laceration without foreign body of unspecified upper arm, initial encounter; R29.898 Other symptoms and signs involving the musculoskeletal system; G43.109 Migraine with aura, not intractable, without status migrainosus; F43.10 Post-traumatic stress disorder, unspecified; F41.1 Generalized anxiety disorder | CPT/HCPCS: 99212 ==